=== PATIENT | male | born 1945 | race African-American/Black ===

== ENCOUNTER 2017-01-31 17:57 | Emergency (ER) | payer OTHER, MEDICAID ==
[2017-01-31 18:08] VITALS: BMI 20.9
[2017-01-31] MEDS ORDERED: NS 1000 ML 1,000 ML ONE (19:17)
--- NOTE | 2017-01-31 19:19 | DR.GENAD ---
HPI - PCP Primary Care Physician: FREDY LOPEZ - Complaint/Symptoms Chief Complaint Doctors Comments: Patient states his pacemaker has beent trying to go off today onset when he was walking two blocks this evening. States he has had a pacemaker for a year for weak heart and he has been taking his medicines. States he do not smoke but he drinks around eight plus Natuaral Lites daily. He has been having xiphoid chest pain with SOB. patient states he has been having decreased appetite with diarrhea. Chief Complaint:: PACEMAKER GOING OFF. HURTS AROUNF PACEMAKER. DIRRHEA AND NAUSEA Self Treatment fo Chief Complaint: TOOK PRESCRIBED MEDS - Nurses notes reviewed Nurses Notes Review: Yes - Source History Provided: Patient, Family Member - Mode of Arrival Mode of Arrival: Ambulatory - Timing Onset of Chief Complaint: 01/30/17 Came on: Gradually - Duration Duration: Constant How lon Duration: Days - Location Location: xiphoid chest pain - Severity Severity: Moderate - Modifying Factors Worsens:: nothing Improves:: nothing PMH - PMH Past Medical History: Yes Past Medical History: Angina, Hypertension Past Surgical History: Yes Surgical History: Other Past Surgical History Comment: PACEMAKER - Family History History of Family Medical Conditions: No - Social History Does any household member use tobacco: No Alcohol Use: Occasionally Do you use any recreational Drugs:: No Lives With: Family Lives Where: Home - infectious screening In the last 2 months have you had wt loss of >10#?: NO Have you had fever, night sweats or hemotysis?: No Have you traveled outside the country in the last 6 months?: No Isolation: Standard ROS - Review of Systems Constitutional: No Symptoms Reported, Weakness, Loss of Appetite. negative: See HPI, Chills, Diaphoresis, Fever, Malaise, Irritable, Fatigue, Other Eyes: No Symptoms Reported ENTM: No Symptoms Reported Respiratoy: No Symptoms Reported, Short of Breath. negative: See HPI, Productive Cough, Non-Productive Cough, Moist Cough, Dry Cough, Hacking Cough, Barking Cough, Brassy Cough, Orthopnea, Stridor, Wheezing, Hemoptysis, Other Cardiovascular: Chest Pain, Edema, Palpitations. negative: No Symptoms Reported , See HPI, Syncope, Cyanosis, Skin Mottling, Other Gastrointestinal/Abdominal: No Symptoms Reported. negative: See HPI, Abdominal Pain, Constipation, Diarrhea, Nausea, Vomiting, Food Intolerance, Other Genitourinary: No Symptoms Reported. negative: See HPI, Discharge, Dysuria, Frequency, Hematuria, Pain, Bleeding, Other Neurological: No Symptoms Reported Musculoskeletal: No Symptoms Reported Integumentary: No Symptoms Reported Hematologic/Lymphatic: No Symptoms Reported Endocrine: No Symptoms Reported Psychiatric: No Symptoms Reported PE - Vital Signs Vitals: Temperature 98.4 F Pulse Rate [Apical] 63 Pulse Rate 67 Respiratory Rate 18 Blood Pressure [Left Arm] 122/75 Blood Pressure 114/69 O2 Sat by Pulse Oximetry 100 - General Limitations: No Limitations General Appearance: Alert, In No Apparent Distress, In Distress (mild) - Head Head Exam: Normal Inspection, Atraumatic, Normocephalic - Eyes Eye exam: Normal Appearance, PERRL, EOMI. negative: Scleral Icterus, Conjunctival Injection, Nystagmus, Miosis, Mydrasis, Periorbital Swelling, Periorbital Tenderness, Other - ENT ENT Exam: Normal Exam, Normal Oropharynx, Normal External Ear Exam, Mucous Membranes Moist, TM's Normal Bilaterally External Ear Exam: Normal External Inspection TM/Canal Exam: Bilateral Normal Nose Exam: Normal Nose Exam Mouth Exam: Normal Inspection Throat Exam: Normal Inspection - Neck Neck Exam: Normal Inspection, Full ROM, Trachea Midline - Chest Chest Inspection: Normal Inspection, Symmetric Chest Wall Rise - Respiratory Respiratory Exam: Normal Lung Sounds Bilat Respiratory Exam: Bilateral Clear to Auscultation - Cardiovascular Cardiovascular Exam: Regular Rate, Normal Rhythm, Normal Heart Sounds - Abdominal Exam Abdominal Exam: Normal Inspection, Normal Bowel Sounds, Soft Abdominal Tenderness: negative: RUQ, RLQ, LUQ, LLQ, Epigastrium, Suprapubic, Diffuse, Mild, Moderate, Severe, Other - Extremities Extremities Exam: Normal Inspection, Full ROM, Normal Capillary Refill, Edema (2 -3 + dependent edema) - Back Back Exam: Normal Inspection, Full ROM. negative: Tenderness, (R) CVA Tenderness, (L) CVA Tenderness, Muscle Spasm, Paraspinal Tenderness, Vertebral Tenderness, Rashes, (R) Sciatic Notch Tenderness, (L) Sciatic Notch Tendern, (R ) Straight Leg Raise, (L) Straight Leg Raise, Other - Neurologic Neurological Exam: Alert, Oriented X3, CN II-XII Intact, Normal Gait, Reflexes Normal - Psychiatric Psychiatric Exam: Normal Affect, Normal Mood - Skin Skin Exam: Warm, Dry, Intact, Normal Color Course - Reevaluation 1st: Improved - Consultation Called: 02:13 Call Returned: 02:21 (Dr. Hodges called states to hang onto patient a little longer in ER) - Education/Counseling Education/Counseling: Patient, Family Educated On: Treatment, Diagnosis, Needs for Follow Up ROR - Labs Reviewed Laboratory Results Reviewed?: Yes (all labs and x-ray results reviewed and discussed with patient. ) Result Diagrams: 01/31/17 19:40 01/31/17 23:43 Laboratory: WBC 4.1 X10^3/uL (3.6-10.0) 01/31/17 19:40 RBC 3.55 X10^6/uL (4.7-6.0) L 01/31/17 19:40 Hgb 11.3 g/dL (13.5-18.0) L 01/31/17 19:40 Hct 33.8 % (42.0-54.0) L 01/31/17 19:40 MCV 95.0 fL (80.0-100.0) 01/31/17 19:40 MCH 31.8 pg (27.0-34.0) 01/31/17 19:40 MCHC 33.5 g/dL (33.0-35.0) 01/31/17 19:40 RDW 14.5 % (11.6-16.5) 01/31/17 19:40 Plt Count 203 X10^3/uL (150.0-450.0) 01/31/17 19:40 MPV 7.9 fL (7.4-11.0) 01/31/17 19:40 Neut % 32.7 % (42.0-75.0) L 01/31/17 19:40 Lymph % 56.3 % (21.0-51.0) H 01/31/17 19:40 [place] % 10.3 % (0.0-13.0) 01/31/17 19:40 Eos % 0.3 % (0.9-2.9) L 01/31/17 19:40 Baso % 0.4 % (0.2-1.0) 01/31/17 19:40 Neut # 1.3 x10^3/uL (2.2-4.8) L 01/31/17 19:40 Lymph # 2.3 X10^3/uL (1.3-2.9) 01/31/17 19:40 [place] # 0.4 x10^3/uL (0.3-0.8) 01/31/17 19:40 Eos # 0.0 x10^3/uL (0.0-0.2) 01/31/17 19:40 Baso # 0.0 X10^3/uL (0.0-0.1) 01/31/17 19:40 Absolute Nucleated RBC 0.1 /100WBC 01/31/17 19:40 INR Target Range - 01/31/17 20:18 INR 1.03 (0.8-1.3) 01/31/17 20:18 PTT 28.5 SECONDS (22.9-36.5) 01/31/17 20:18 PTT Comment - 01/31/17 20:18 D-Dimer 566 ng/mL (0-400) H* 01/31/17 20:18 Sodium 147 mmol/L (136-145) H 01/31/17 23:43 Corrected Sodium TNP 01/31/17 23:43 Potassium 4.2 mmol/L (3.5-5.1) 01/31/17 23:43 Chloride 107 mmol/L (98-107) 01/31/17 23:43 Carbon Dioxide 31.5 mmol/L (21-32) 01/31/17 23:43 BUN 4 mg/dL (7-18) L 01/31/17 23:43 Creatinine 0.60 mg/dL (0.70-1.30) L 01/31/17 23:43 Est GFR (MDRD) Af Amer > 60 (>60) 01/31/17 23:43 Est GFR (MDRD) Non-Af > 60 (>60) 01/31/17 23:43 Glucose 93 mg/dL (65-99) 01/31/17 23:43 Calcium 8.5 mg/dL (8.5-10.1) 01/31/17 23:43 Corrected Calcium TNP 01/31/17 20:18 Magnesium 1.3 mg/dL (1.7-2.9) L 01/31/17 20:18 Total Bilirubin 0.30 mg/dL (0.2-1.0) 01/31/17 20:18 AST 38 Units/L (15-37) H 01/31/17 20:18 ALT 20 Units/L (12-78) 01/31/17 20:18 Alkaline Phosphatase 89 Units/L (46-116) 01/31/17 20:18 Creatine Kinase 97 Units/L (39-308) 02/01/17 03:55 CK-MB (CK-2) < 1.0 ng/mL (0-4.0) 02/01/17 03:55 CK/CKMB % Calc 1.0 % (<4) 02/01/17 03:55 Troponin I 0.02 ng/mL (0-1.5) 02/01/17 03:55 Total Protein 7.8 g/dL (6.4-8.2) 01/31/17 20:18 Albumin 3.7 g/dL (3.4-5.0) 01/31/17 20:18 Globulin 4.1 g/dL (2.5-4.5) 01/31/17 20:18 Albumin/Globulin Ratio 0.9 Ratio (1.1-2.1) L 01/31/17 20:18 Amylase 101 Units/L (25-115) 01/31/17 20:18 Lipase 86 Units/L (73-393) 01/31/17 20:18 Ethyl Alcohol mg/dL 50 mg/dL (0-19.9) H 02/01/17 03:55 - XRAY XRAY Interpreted by: Radiologist (CTA: Central bronchiectasis and increased lung volumes consistent with COPD, mod cardiomegaly. No pulmonary embolism) - EKG Rate: 65 [place]: Normal Rhythm: Paced ST: Nonsp - Diagnosis Discharge Problem: Chest pain, COPD (chronic obstructive pulmonary disease), Hypokalemia, Alcohol abuse, Bronchitis - Discharge Plan Disposition: 01 HOME, SELF-CARE Condition: Stable Prescriptions: Ciprofloxacin HCl [CIPRO 500 MG TAB *] 500 mg PO Q12H #20 tab - Follow ups/Referrals Follow ups/Referrals: NFD,None [Primary Care Provider] - 3 days KAIDEN GUEVARA [STAFF PHYSICIAN] - 3 days - Instructions Instructions: Nonspecific Chest Pain, Chronic Obstructive Pulmonary Disease, Bronchiectasis, Hypokalemia, Alcohol Use Disorder
[2017-01-31] MEDS ORDERED: NS 1000 ML 1,000 ML IV SCH (20:00)
[2017-01-31 20:36] LABS: BASOPHILS % (AUTO) 0.4 % (0.2-1.0); EOSINOPHILS % (AUTO) 0.3 % (0.9-2.9); HEMATOCRIT 33.8 % (42.0-54.0); HEMOGLOBIN 11.3 g/dL (13.5-18.0); LYMPHOCYTES # (AUTO) 2.3 X10^3/uL (1.3-2.9); LYMPHOCYTES % (AUTO) 56.3 % (21.0-51.0); MEAN CORPUSCULAR HEMOGLOBIN 31.8 pg (27.0-34.0); MEAN CORPUSCULAR HGB CONC 33.5 g/dL (33.0-35.0); MEAN PLATELET VOLUME 7.9 fL (7.4-11.0); MONOCYTES # (AUTO) 0.4 x10^3/uL (0.3-0.8); MONOCYTES % (AUTO) 10.3 % (0.0-13.0); NEUTROPHILS # (AUTO) 1.3 x10^3/uL (2.2-4.8); NEUTROPHILS % (AUTO) 32.7 % (42.0-75.0); PLATELET COUNT 203 X10^3/uL (150.0-450.0); RED BLOOD COUNT 3.55 X10^6/uL (4.7-6.0); RED CELL DISTRIBUTION WIDTH 14.5 % (11.6-16.5); WHITE BLOOD COUNT 4.1 X10^3/uL (3.6-10.0)
--- NOTE | 2017-01-31 20:52 | RAD ---
EXAM: Chest X-ray INDICATION: Chest pain COMPARISION: No prior TECHNIQUE: Single view FINDINGS: The lungs are clear and the lung volumes are within normal limits. No pleural effusion or pneumothor ax. The cardiac silhouette and mediastinum are normal. The regional skeleton is intact. There is a left-sided pacemaker. IMPRESSION: No acute abnormality identified Reported By:
[2017-01-31 20:55] LABS: ALANINE AMINOTRANSFERASE 20 Units/L (12-78); ALBUMIN 3.7 g/dL (3.4-5.0); ALKALINE PHOSPHATASE 89 Units/L (46-116); AMYLASE 101 Units/L (25-115); ASPARTATE AMINO TRANSFERASE 38 Units/L (15-37); BLOOD ALCOHOL 181 mg/dL (0-19.9); BLOOD UREA NITROGEN 5 mg/dL (7-18); CALCIUM 8.6 mg/dL (8.5-10.1); CARBON DIOXIDE 29.4 mmol/L (21-32); CHLORIDE 105 mmol/L (98-107); CKMB % 0.9 % (<4); CREATINE KINASE 106 Units/L (39-308); CREATINE KINASE MB < 1.0 ng/mL (0-4.0); CREATININE 0.64 mg/dL (0.70-1.30); GLUCOSE 95 mg/dL (65-99); LIPASE 86 Units/L (73-393); MAGNESIUM 1.3 mg/dL (1.7-2.9); SODIUM 144 mmol/L (136-145); TOTAL PROTEIN 7.8 g/dL (6.4-8.2); TROPONIN I < 0.02 ng/mL (0-1.5); eGFR BLACK RACES > 60 (>60); eGFR NON BLACK RACES > 60 (>60)
[2017-01-31 21:06] LABS: D DIMER 566 ng/mL (0-400)
[2017-01-31] MEDS ORDERED: K-LYTE EFFERVESCENT ONE (21:18)
[2017-01-31] MEDS ORDERED: NS 100 ML IV 100 ML IV ONE (21:33)
[2017-01-31] MEDS ORDERED: K-LYTE EFFERVESCENT PO SCH (22:00)
--- NOTE | 2017-01-31 22:21 | CT ---
EXAM: CTA CHEST WITH CONTRAST INDICATION: Chest pain COMPARISION: No priors for comparison TECHNIQUE: Spiral CT of the chest was performed with contrast. Thin reconstructions in the axial and para-coron al planes were obtained as well as 3D reconstructions. The patient received intravenous contrast wi thout adverse reaction. FINDINGS: The heart size is enlarged. There is no evidence of a pulmonary embolism. The aorta is normal in flip iber. No evidence of dissection or aneurysm. No mediastinal or hilar mass or adenopathy. The lungs are clear. There is central bronchiectasis and increased lung volumes. No evidence of bull ous disease or pulmonary fibrosis. No lung mass, consolidation, or suspicious pulmonary nodule. No p leural effusion or pneumothorax identified. The regional skeleton is intact. IMPRESSION: There central bronchiectasis and increased lung volumes consistent COPD. There is moderate cardiomeg rosemarie. No pulmonary embolism. Reported By:
[2017-01-31] MEDS ORDERED: TORADOL 30 MG VIAL IVP STA (23:09)
[2017-01-31] MEDS ORDERED: LASIX IVP STA (23:10)
[2017-01-31] MEDS ORDERED: LASIX ONE (23:24)
[2017-01-31] MEDS ORDERED: TORADOL 30 MG VIAL ONE (23:24)
[2017-01-31] MEDS ORDERED: LEVAQUIN TAB 500 MG PO SCH (23:45)
[2017-01-31] MEDS ORDERED: K-DUR TAB 20 MEQ PO SCH (23:45)
[2017-01-31] MEDS ORDERED: LEVAQUIN TAB 500 MG ONE (23:48)
[2017-01-31] MEDS ORDERED: K-DUR TAB 20 MEQ PO ONE (23:48)
[2017-02-01 00:03] LABS: BLOOD UREA NITROGEN 4 mg/dL (7-18); CALCIUM 8.5 mg/dL (8.5-10.1); CARBON DIOXIDE 31.5 mmol/L (21-32); CHLORIDE 107 mmol/L (98-107); GLUCOSE 93 mg/dL (65-99); SODIUM 147 mmol/L (136-145); TROPONIN I 0.03 ng/mL (0-1.5); eGFR BLACK RACES > 60 (>60); eGFR NON BLACK RACES > 60 (>60)
[2017-02-01 00:08] LABS: CKMB % 0.9 % (<4); CREATINE KINASE 111 Units/L (39-308); CREATINE KINASE MB < 1.0 ng/mL (0-4.0)
[2017-02-01 03:24] VITALS: BP 122/75
[2017-02-01 04:21] LABS: CREATINE KINASE 97 Units/L (39-308); CREATINE KINASE MB < 1.0 ng/mL (0-4.0); TROPONIN I 0.02 ng/mL (0-1.5)
[2017-02-01] MEDS ORDERED: TYLENOL 325 MG TAB PO ONE ×2 (05:08→05:10)
== END 2017-02-01 05:14 | disposition home or self-care (01) ==
LOC: ER 18:21
DX: R07.89 Other chest pain (principal); J44.9 Chronic obstructive pulmonary disease, unspecified; E87.6 Hypokalemia; F10.10 Alcohol abuse, uncomplicated; J40 Bronchitis, not specified as acute or chronic; I51.7 Cardiomegaly
CPT/HCPCS: 36415; 71010; 71275; 80048; 80053; 80320; 82150; 82550; 82553; 83690; 83735; 84484; 85025; 85378; 85610; 85730; 93005; 93010; 96365; 96367; 96374; 96375; 99283; A4222; G6040; J1885; J1940

== ENCOUNTER 2017-02-23 22:59 | Inpatient (IN) | payer OTHER, MEDICAID ==
--- NOTE | 2017-02-23 23:37 | DR.GENAD ---
HPI - PCP Primary Care Physician: NFD - HPI Comment HPI Comment: PATIENT IS HAVING PRECORDIAL AND ABDOMINAL PAIN IN EPIGASTRIC AREA. PAIN MAKES PATIENT WEAK, SOB AND NAUSEATED. HE HAS INDWELLING PACE MAKER. HE IS ALSO HIV POSITIVE. HE SAID HE RECENTLY MOVE HERE FROM [place]. DO NOT HAVE PCP HERE YET. - Complaint/Symptoms Chief Complaint Doctors Comments: CHEST ABD ABDOMINAL PAIN. LOWER BACK HURTS, FELL YESTERDAY. Chief Complaint:: PT C/O UPPER ABD PAIN AND CHEST PAIN PT STATES" IT FEELS SORE RIGHT HERE WHEN I TOUCH IT " PT POINTS TOO ABD AND CHEST - Nurses notes reviewed Nurses Notes Review: Yes - Source History Provided: Patient - Mode of Arrival Mode of Arrival: Ambulatory - Timing Onset of Chief Complaint: 02/22/17 - Duration Duration: Constant Duration: Hours - Severity Severity: Moderate PMH - PMH Past Medical History: Yes Past Medical History: Angina, Hypertension Past Medical History Comment: PACEMAKER Past Surgical History: Yes Surgical History: Other Past Surgical History Comment: PACEMAKER - Family History History of Family Medical Conditions: No - Social History Do you use any recreational Drugs:: No - infectious screening In the last 2 months have you had wt loss of >10#?: NO Have you had fever, night sweats or hemotysis?: No Have you traveled outside the country in the last 6 months?: No Isolation: Standard ROS - Review of Systems Constitutional: Weakness, Fatigue. negative: Chills, Fever Eyes: No Symptoms Reported. negative: Eye Pain, Discharge ENTM: No Symptoms Reported. negative: Ear Pain, Nose Discharge, Nose Congestion , Throat Pain Respiratoy: Short of Breath. negative: Productive Cough, Non-Productive Cough, Wheezing Cardiovascular: Chest Pain. negative: Edema, Palpitations Gastrointestinal/Abdominal: Abdominal Pain, Nausea Genitourinary: No Symptoms Reported Neurological: No Symptoms Reported, Weakness. negative: Headache, Dizziness Musculoskeletal: Back Pain, Muscle Pain Integumentary: No Symptoms Reported Hematologic/Lymphatic: Easy Bleeding, Easy Bruising Endocrine: No Symptoms Reported All Other Systems: Reviewed and Negative PE - Vital Signs Vitals: Temperature 98.6 F Pulse Rate 75 Respiratory Rate 18 Blood Pressure [Left Arm] 122/75 Blood Pressure 155/82 O2 Sat by Pulse Oximetry 100 - General Limitations: No Limitations General Appearance: Alert - Head Head Exam: Normal Inspection - Eyes Eye exam: Normal Appearance - ENT ENT Exam: Normal External Ear Exam External Ear Exam: Normal External Inspection TM/Canal Exam: Bilateral Normal Nose Exam: Normal Nose Exam Mouth Exam: Normal Inspection Throat Exam: Normal Inspection - Neck Neck Exam: Trachea Midline - Chest Chest Inspection: Symmetric Chest Wall Rise - Respiratory Respiratory Exam: Chest Wall Tenderness Respiratory Exam: Bilateral Rhonchi, Lower Rhonchi - Cardiovascular Cardiovascular Exam: Regular Rate, Normal Rhythm, Normal Heart Sounds - Abdominal Exam Abdominal Exam: Normal Bowel Sounds, Soft, Tenderness Abdominal Tenderness: Diffuse, Moderate - Extremities Extremities Exam: Normal Inspection - Back Back Exam: Vertebral Tenderness (LOW BACK PAIN) - Neurologic Neurological Exam: Alert, Oriented X3, CN II-XII Intact. negative: Normal Gait , Motor Sensory Deficit, Reflexes Normal - Psychiatric Psychiatric Exam: Anxious - Skin Skin Exam: Normal Color MDM - Differential Diagnosis Differential Diagnosis: ABDOMINAL PAIN, CHEST PAIN, BACK PAIN, ND, PNEUMONIA, UTI Course - Treatment Treatment: SEE ORDERS - Consultation Consultation Comments: DISCUSS PATIENT WITH DR. LAZO. HE WILL ADMIT PATIENT. - Education/Counseling Education/Counseling: Patient, Education Educated On: Treatment, Diagnosis, Needs for Follow Up ROR - Labs Reviewed Laboratory Results Reviewed?: Yes Result Diagrams: 02/24/17 00:10 02/24/17 00:10 Laboratory: WBC 3.6 X10^3/uL (3.6-10.0) 02/24/17 00:10 RBC 3.22 X10^6/uL (4.7-6.0) L 02/24/17 00:10 Hgb 10.3 g/dL (13.5-18.0) L 02/24/17 00:10 Hct 30.7 % (42.0-54.0) L 02/24/17 00:10 MCV 95.4 fL (80.0-100.0) 02/24/17 00:10 MCH 32.0 pg (27.0-34.0) 02/24/17 00:10 MCHC 33.5 g/dL (33.0-35.0) 02/24/17 00:10 RDW 13.9 % (11.6-16.5) 02/24/17 00:10 Plt Count 166 X10^3/uL (150.0-450.0) 02/24/17 00:10 MPV 8.0 fL (7.4-11.0) 02/24/17 00:10 Neut % 40.0 % (42.0-75.0) L 02/24/17 00:10 Lymph % 48.5 % (21.0-51.0) 02/24/17 00:10 [place] % 10.4 % (0.0-13.0) 02/24/17 00:10 Eos % 0.4 % (0.9-2.9) L 02/24/17 00:10 Baso % 0.7 % (0.2-1.0) 02/24/17 00:10 Neut # 1.4 x10^3/uL (2.2-4.8) L 02/24/17 00:10 Lymph # 1.8 X10^3/uL (1.3-2.9) 02/24/17 00:10 [place] # 0.4 x10^3/uL (0.3-0.8) 02/24/17 00:10 Eos # 0.0 x10^3/uL (0.0-0.2) 02/24/17 00:10 Baso # 0.0 X10^3/uL (0.0-0.1) 02/24/17 00:10 Absolute Nucleated RBC 0.0 /100WBC 02/24/17 00:10 Sodium 145 mmol/L (136-145) 02/24/17 00:10 Corrected Sodium TNP 02/24/17 00:10 Potassium 3.4 mmol/L (3.5-5.1) L 02/24/17 00:10 Chloride 109 mmol/L (98-107) H 02/24/17 00:10 Carbon Dioxide 31.0 mmol/L (21-32) 02/24/17 00:10 BUN 6 mg/dL (7-18) L 02/24/17 00:10 Creatinine 0.88 mg/dL (0.70-1.30) 02/24/17 00:10 Est GFR (MDRD) Af Amer > 60 (>60) 02/24/17 00:10 Est GFR (MDRD) Non-Af > 60 (>60) 02/24/17 00:10 Glucose 97 mg/dL (65-99) 02/24/17 00:10 Calcium 8.5 mg/dL (8.5-10.1) 02/24/17 00:10 Corrected Calcium 9.1 mg/dL (8.5-10.1) 02/24/17 00:10 Total Bilirubin 0.20 mg/dL (0.2-1.0) 02/24/17 00:10 AST 25 Units/L (15-37) 02/24/17 00:10 ALT 14 Units/L (12-78) 02/24/17 00:10 Alkaline Phosphatase 82 Units/L (46-116) 02/24/17 00:10 Creatine Kinase 113 Units/L (39-308) 02/24/17 03:13 CK-MB (CK-2) 1.0 ng/mL (0-4.0) 02/24/17 03:13 CK/CKMB % Calc 0.9 % (<4) 02/24/17 03:13 Troponin I 0.05 ng/mL (0-1.5) 02/24/17 03:13 Total Protein 6.6 g/dL (6.4-8.2) 02/24/17 00:10 Albumin 3.2 g/dL (3.4-5.0) L 02/24/17 00:10 Globulin 3.4 g/dL (2.5-4.5) 02/24/17 00:10 Albumin/Globulin Ratio 0.9 Ratio (1.1-2.1) L 02/24/17 00:10 - XRAY XRAY Interpreted by: Radiologist XRAY Findings: REPORT DISCUSS WITH PATIENT. - EKG Rhythm: NSR (EKG NOTED) - Diagnosis Discharge Problem: Chest pain Qualifiers: Chest pain type: precordial pain Qualified Code(s): R07.2 - Precordial pain Abdominal pain Qualifiers: Abdominal location: epigastric Qualified Code(s): R10.13 - Epigastric pain Back pain Qualifiers: Back pain location: low back pain Chronicity: acute Back pain laterality: bilateral Sciatica presence: without sciatica Qualified Code(s): M54.5 - Low back pain - Follow ups/Referrals Follow ups/Referrals: NFD,None [Primary Care Provider] - 3 days - Instructions
[2017-02-24] MEDS ORDERED: TORADOL 60 MG VIAL IM ONE (00:11)
[2017-02-24] MEDS ORDERED: TORADOL 60 MG VIAL ONE (00:17)
[2017-02-24 00:27] LABS: BASOPHILS % (AUTO) 0.7 % (0.2-1.0); EOSINOPHILS % (AUTO) 0.4 % (0.9-2.9); HEMATOCRIT 30.7 % (42.0-54.0); HEMOGLOBIN 10.3 g/dL (13.5-18.0); LYMPHOCYTES # (AUTO) 1.8 X10^3/uL (1.3-2.9); LYMPHOCYTES % (AUTO) 48.5 % (21.0-51.0); MEAN CORPUSCULAR HGB CONC 33.5 g/dL (33.0-35.0); MEAN CORPUSCULAR VOLUME 95.4 fL (80.0-100.0); MONOCYTES # (AUTO) 0.4 x10^3/uL (0.3-0.8); MONOCYTES % (AUTO) 10.4 % (0.0-13.0); NEUTROPHILS # (AUTO) 1.4 x10^3/uL (2.2-4.8); PLATELET COUNT 166 X10^3/uL (150.0-450.0); RED BLOOD COUNT 3.22 X10^6/uL (4.7-6.0); RED CELL DISTRIBUTION WIDTH 13.9 % (11.6-16.5); WHITE BLOOD COUNT 3.6 X10^3/uL (3.6-10.0)
[2017-02-24 00:44] LABS: BLOOD UREA NITROGEN 6 mg/dL (7-18); CALCIUM 8.5 mg/dL (8.5-10.1); CHLORIDE 109 mmol/L (98-107); CREATININE 0.88 mg/dL (0.70-1.30); GLUCOSE 97 mg/dL (65-99); SODIUM 145 mmol/L (136-145); TROPONIN I 0.05 ng/mL (0-1.5); eGFR BLACK RACES > 60 (>60); eGFR NON BLACK RACES > 60 (>60)
--- NOTE | 2017-02-24 00:49 | RAD ---
Acute abdominal series Indication:chest and upper abdominal pain Comparison: 01/31/2017 Findings: The trachea is midline. The cardiac silhouette is unremarkable. Stable positioning of left chest wal l AICD. The lungs are clear without focal infiltrate or effusion. The bony thorax is unremarkable. Flat and upright evaluation of the abdomen demonstrates a normal bowel gas pattern. No pathological soft tissue mass or calcification can be observed. The bony structures are grossly intact. Previous cholecystectomy is noted. IMPRESSION: 1. No acute cardiopulmonary disease. 2. No evidence for acute abdominal pathology identified. Reported By:
[2017-02-24 00:52] LABS: ALANINE AMINOTRANSFERASE 14 Units/L (12-78); ALBUMIN 3.2 g/dL (3.4-5.0); ALKALINE PHOSPHATASE 82 Units/L (46-116); ASPARTATE AMINO TRANSFERASE 25 Units/L (15-37); COR CA(FOR HYPOALB) 9.1 mg/dL (8.5-10.1); CREATINE KINASE 99 Units/L (39-308); CREATINE KINASE MB < 1.0 ng/mL (0-4.0); TOTAL PROTEIN 6.6 g/dL (6.4-8.2)
--- NOTE | 2017-02-24 01:34 | RAD ---
The three views of the lumbar spine Indication: Lower back pain post trauma. Findings: There is moderate spondylosis at L5-S1. There is mild multilevel facet arthropathy within t he lower lumbar spine. No acute fracture spondylolisthesis within the lumbar spine. No spondylolysis. SI joints are intact. Previous cholecystectomy is noted. 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 Calcified vascular atherosclerotic disease is noted within the iliac arteries bilater ally.. Impression: No acute fracture or malalignment of the lumbar spine. Moderate spondylosis at L5-S1. Reported By:
[2017-02-24] MEDS ORDERED: POTASSIUM CHLORIDE LIQ 20 MEQ UDC PO ONE (01:40)
[2017-02-24 03:39] LABS: CKMB % 0.9 % (<4); TROPONIN I 0.05 ng/mL (0-1.5)
[2017-02-24] MEDS ORDERED: POTASSIUM CHLORIDE LIQ 20 MEQ UDC ONE (03:55)
[2017-02-24] MEDS ORDERED: NITROSTAT SL PRN (04:28)
[2017-02-24] MEDS ORDERED: ZOFRAN INJ 4 MG VIAL IVP PRN (04:37)
[2017-02-24] MEDS: ZESTRIL TAB 10 MG PO SCH ×2 (05:11→10:20)
[2017-02-24 05:36] LABS: BASOPHILS % (AUTO) 0.6 % (0.2-1.0); EOSINOPHILS % (AUTO) 0.4 % (0.9-2.9); HEMATOCRIT 31.1 % (42.0-54.0); HEMOGLOBIN 10.3 g/dL (13.5-18.0); LYMPHOCYTES # (AUTO) 2.3 X10^3/uL (1.3-2.9); LYMPHOCYTES % (AUTO) 55.3 % (21.0-51.0); MEAN CORPUSCULAR HEMOGLOBIN 31.4 pg (27.0-34.0); MEAN CORPUSCULAR HGB CONC 33.3 g/dL (33.0-35.0); MEAN CORPUSCULAR VOLUME 94.3 fL (80.0-100.0); MEAN PLATELET VOLUME 7.8 fL (7.4-11.0); MONOCYTES # (AUTO) 0.5 x10^3/uL (0.3-0.8); MONOCYTES % (AUTO) 12.8 % (0.0-13.0); NEUTROPHILS # (AUTO) 1.3 x10^3/uL (2.2-4.8); NEUTROPHILS % (AUTO) 30.9 % (42.0-75.0); PLATELET COUNT 158 X10^3/uL (150.0-450.0); RED BLOOD COUNT 3.29 X10^6/uL (4.7-6.0); RED CELL DISTRIBUTION WIDTH 14.1 % (11.6-16.5); WHITE BLOOD COUNT 4.1 X10^3/uL (3.6-10.0)
[2017-02-24 05:56] LABS: ALANINE AMINOTRANSFERASE 14 Units/L (12-78); ALBUMIN 3.1 g/dL (3.4-5.0); ALKALINE PHOSPHATASE 74 Units/L (46-116); ASPARTATE AMINO TRANSFERASE 25 Units/L (15-37); BLOOD UREA NITROGEN 4 mg/dL (7-18); CALCIUM 8.3 mg/dL (8.5-10.1); CARBON DIOXIDE 29.8 mmol/L (21-32); CHLORIDE 108 mmol/L (98-107); CHOL/HDL RATIO 1.9 (0.0-5.0); CHOLESTEROL 115 mg/dL (0-200); CREATININE 0.74 mg/dL (0.70-1.30); GLUCOSE 95 mg/dL (65-99); HDL CHOLESTEROL 59 mg/dL (40-60); SODIUM 144 mmol/L (136-145); TOTAL PROTEIN 6.4 g/dL (6.4-8.2); TRIGLYCERIDES 28 mg/dL (0-150); eGFR BLACK RACES > 60 (>60); eGFR NON BLACK RACES > 60 (>60)
[2017-02-24] MEDS ORDERED: K-RIDER 10 MEQ/NS 100 ML 10 MEQ/100 ML BAG IV PRN (06:20)
[2017-02-24] MEDS ORDERED: POTASSIUM CHLORIDE LIQ 20 MEQ UDC PO PRN (06:20)
[2017-02-24] MEDS ORDERED: K-LYTE EFFERVESCENT PO PRN (06:20)
[2017-02-24] MEDS: TYLENOL 325 MG TAB PO PRN (06:44)
[2017-02-24] MEDS: K-DUR TAB 20 MEQ PO PRN ×2 (06:44→10:20)
--- NOTE | 2017-02-24 10:02 | DR.H&P ---
H&P - History & Physical for Day of: H&P Date: 02/24/17 - Chief Complaint Chief Complaint: CHEST PAIN, ABDOMINAL PAIN, LOWER BACK PAIN - Allergies Allergies/Adverse Reactions: Allergies Allergy/AdvReac Type Severity Reaction Status Date / Time No Known Drug Allergies Allergy Verified 01/31/17 18:10 - History of Present Illness History of Present Illness: IS A 71 YEAR OLD MALE WHO REPORTED TO THE ER WITH COMPLAINTS OF CHEST PAIN, ABDOMINAL PAIN IN THE EPIGASTRIC AREA, AND LOWER BACK PAIN FOLLOWING A FALL YESTERDAY. PATIENT REPORTS A HISTORY OF HTN AND AN INDWELLING PACEMAKER. ASSOCIATED SYMPTOMS ARE WEAKNESS, SHORTNESS OF BREATH, AND NAUSEA. HE IS NOTED WITH BILATERAL LOWER LOBE RHONCHI ON AUSCULTATION. BOWEL SOUNDS ARE NORMAL IN ALL QUADRANTS. ON ARRIVAL TO ER, VITALS WERE 98.6-75-18-100%-155/82. CBC WNL EXCEPT RBC 3.22, HGB 10.3, HCT 30.7 , NEUT % 40, EOS % 0.4, NEUT # 1.4. CMP WNL EXCEPT POTASSIUM 3.4, CHLORIDE 109, BUN 6, ALBUMIN 3.2, A/G RATIO 0.9. CARDIAC ENZYMES WNL. EKG REPORTS PACED RHYTHM. ABDOMINAL XRAY NEGATIV.E LUMBAR XRAY REPORTS MODERATE SPONDYLOSIS AT L5- S1 WITH NO ACUTE FX OR MALALIGNMENT NOTED. HE WAS GIVEN TORADOL 60MG IM X 1 DOSE FOR PAIN. HE REPORTED DECREASE IN BACK PAIN AFTER TORADOL. HE WAS ALSO GIVEN POTASSIUM ELIXIR. WE ADMITTED PATIENT FOR FURTHER TREATMENT AND EVALUATION. HE WAS STARTED ON PEPCID 20MG IV Q12H, LISINOPRIL 10MG DAILY, MORPHINE 4MG IVP Q6H PRN PAIN, NITRO PRN PAIN, ZOFRAN 4MG IVP Q6H PRN NAUSEA, AND POTASSIUM PROTOCOL. WE PLAN TO RECHECK LABS AND SERIAL CARDIAC ENZYMES AND EKG AND FOLLOW UP WITH PATIENT IN AM. - Past Medical History Past Medical History: Angina, Coronary Artery Disease, CVA, Dyslipidemia, GERD, Hypertension Additional Medical History: HIV - Past Surgical History Surgical History: Cholecystectomy, Other Additional Surgical History: PACEMAKER - Family History Family Medical History: Hypertension - Social History Alcohol Use: Occasionally Drug Use: None - Review of Systems Constitutional: No Symptoms Reported, Weakness Eyes: No Symptoms Reported ENT: No Symptoms Reported Respiratory: See HPI, Shortness of Breath Cardiovascular: Chest Pain, See HPI Gastrointestinal: See HPI, Nausea, Abdominal Pain Genitourinary: No Symptoms Reported. denies: See HPI, Dysuria, Frequency, Incontinence, Hematuria, Retention, Other Musculoskeletal: See HPI, Back Pain. denies: No Symptoms Reported, Shoulder Pain, Arm Pain, Hand Pain, Leg Pain, Foot Pain, Neck Pain, Other Skin: No Symptoms Reported. denies: See HPI, Rash, Lesions, Jaundice, Bruising , Wound, Ecchymosis, Other Neurological: Weakness. denies: No Symptoms Reported, See HPI, Numbness, Incoordination, Change in Speech, Confusion, Seizures, Other - Physical Exam Vital Signs: Temperature 98.6 F Pulse Rate 75 Respiratory Rate 18 Blood Pressure [Left Arm] 122/75 Blood Pressure 155/82 O2 Sat by Pulse Oximetry 100 Oriented: Normal Eyes: Normal Ear: Normal Nose: Normal Throat: Normal Respiratory: LLL Absent, RLL Rhonchi Cardiovascular: Normal : Normal Auscultation: Bowel Sounds: Normal Palpation: Normal Tenderness: Epigastric, Moderate. negative: Rebound, Guarding, Rigidity Skin: Normal Musculoskeletal: Back:Lumbar (LOWER BACK PAIN FOLLOWING FALL ) Psychiatric: Normal Mood Description: Calm Affect: Normal Speech Pattern: Clear - Assessment/Plan (1) Chest pain Qualifiers: Chest pain type: precordial pain Qualified Code(s): R07.2 - Precordial pain Status: Acute Plan: SERIAL CARDIAC ENZYMES AND EKG, MORPHINE 4MG IV Q6H PRN PAIN, NITRO 0.4MG SL Q5M PRN PAIN, CONTINUE TO MONITOR (2) Abdominal pain Qualifiers: Abdominal location: epigastric Qualified Code(s): R10.13 - Epigastric pain Status: Acute Plan: PEPCID 20MG IV Q12H, CONTINUE TO MONITOR (3) Back pain Qualifiers: Back pain location: low back pain Chronicity: acute Back pain laterality : bilateral Sciatica presence: without sciatica Qualified Code(s): M54.5 - Low back pain Status: Acute Plan: MORPHINE 4MG IV Q6H PRN PAIN, CONTINUE TO MONITOR (4) Hypokalemia Status: Acute Plan: POTASSIUM SUPPLEMENTS, CONTINUE TO MONITOR
[2017-02-24 10:16] LABS: CKMB % 0.9 % (<4); CREATINE KINASE 108 Units/L (39-308); CREATINE KINASE MB < 1.0 ng/mL (0-4.0); TROPONIN I 0.05 ng/mL (0-1.5)
[2017-02-24] MEDS: PEPCID 20 MG IV PREMIX* 20 MG/50 ML BAG IV SCH ×2 (10:20→21:34)
[2017-02-24] MEDS: ASPIRIN PO SCH (10:20)
[2017-02-24] MEDS ORDERED: NS 250 ML IV 250 ML IV ONE (10:26)
[2017-02-24 16:19] LABS: CKMB % 0.9 % (<4); TROPONIN I 0.05 ng/mL (0-1.5)
[2017-02-24] MEDS: FOLIC ACID TAB 1 MG PO SCH (17:27)
[2017-02-24] MEDS: MORPHINE SULFATE INJ 4 MG IVP PRN (19:38)
[2017-02-24] MEDS: LIPITOR TAB 10 MG PO SCH (21:34)
[2017-02-25 00:11] LABS: BILIRUBIN,URINE NEGATIVE (NEGATIVE); BLOOD/HEMOGLOBIN,URINE NEGATIVE (NEGATIVE); GLUCOSE, URINE NEGATIVE (NEGATIVE); KETONES,URINE NEGATIVE (NEGATIVE); LEUKOCYTE ESTERASE ,URINE NEGATIVE (NEGATIVE); NITRITES,URINE NEGATIVE (NEGATIVE); PROTEIN,URINE NEGATIVE (NEGATIVE); UROBILINOGEN,URINE NORMAL (NORMAL)
[2017-02-25 00:18] LABS: APPEARANCE,URINE CLEAR (CLEAR); BACTERIA,URINE NEGATIVE /HPF (NEGATIVE); COLOR,URINE YELLOW (YELLOW); RBC,URINE NONE SEEN /HPF (NEGATIVE); SQUAMOUS EPITHELIAL CELL,UR RARE /HPF (NEGATIVE)
[2017-02-25 06:07] LABS: BASOPHILS % (AUTO) 0.9 % (0.2-1.0); EOSINOPHILS % (AUTO) 0.9 % (0.9-2.9); HEMATOCRIT 29.3 % (42.0-54.0); HEMOGLOBIN 9.9 g/dL (13.5-18.0); LYMPHOCYTES # (AUTO) 1.6 X10^3/uL (1.3-2.9); LYMPHOCYTES % (AUTO) 47.5 % (21.0-51.0); MEAN CORPUSCULAR HEMOGLOBIN 31.7 pg (27.0-34.0); MEAN CORPUSCULAR HGB CONC 33.7 g/dL (33.0-35.0); MEAN CORPUSCULAR VOLUME 94.1 fL (80.0-100.0); MEAN PLATELET VOLUME 7.7 fL (7.4-11.0); MONOCYTES # (AUTO) 0.4 x10^3/uL (0.3-0.8); NEUTROPHILS # (AUTO) 1.3 x10^3/uL (2.2-4.8); NEUTROPHILS % (AUTO) 39.7 % (42.0-75.0); PLATELET COUNT 152 X10^3/uL (150.0-450.0); RED BLOOD COUNT 3.12 X10^6/uL (4.7-6.0); RED CELL DISTRIBUTION WIDTH 13.9 % (11.6-16.5); WHITE BLOOD COUNT 3.3 X10^3/uL (3.6-10.0)
[2017-02-25 06:19] LABS: ALANINE AMINOTRANSFERASE 13 Units/L (12-78); ALBUMIN 2.7 g/dL (3.4-5.0); ALKALINE PHOSPHATASE 97 Units/L (46-116); ASPARTATE AMINO TRANSFERASE 22 Units/L (15-37); BLOOD UREA NITROGEN 4 mg/dL (7-18); CALCIUM 8.1 mg/dL (8.5-10.1); CHLORIDE 108 mmol/L (98-107); COR CA(FOR HYPOALB) 9.1 mg/dL (8.5-10.1); CREATININE 0.67 mg/dL (0.70-1.30); GLUCOSE 96 mg/dL (65-99); SODIUM 144 mmol/L (136-145); TOTAL PROTEIN 5.9 g/dL (6.4-8.2); eGFR BLACK RACES > 60 (>60); eGFR NON BLACK RACES > 60 (>60)
[2017-02-25] MEDS: K-DUR TAB 20 MEQ PO PRN (06:28)
[2017-02-25] MEDS ORDERED: MAGNESIUM SULFATE 1 GM/100 mL PREMIX 1 GM/100 ML BAG IV SCH (07:00)
[2017-02-25] MEDS: ZESTRIL TAB 10 MG PO SCH (08:03)
[2017-02-25] MEDS: ASPIRIN PO SCH (08:03)
[2017-02-25] MEDS: FOLIC ACID TAB 1 MG PO SCH (08:03)
[2017-02-25] MEDS: PEPCID 20 MG IV PREMIX* 20 MG/50 ML BAG IV SCH ×2 (08:04→20:49)
--- NOTE | 2017-02-25 08:36 | RAD ---
HISTORY: Chest pain/shortness of breath. Study: Portable chest. Comparison: Chest x-ray dated January 31, 2017. Findings: The trachea is midline. The cardiac silhouette is prominent but unchanged. Stable appearing multilea d left chest cardiac pacemaker. The lungs are clear without focal infiltrate or effusion. The bony thorax is unremarkable. IMPRESSION: No acute cardiopulmonary disease. Reported By:
--- NOTE | 2017-02-25 10:22 | PCM.PROG ---
Progress Note - Progress Note for Day of Date: 02/25/17 - Subjective Subjective: WAS ADMITTED FOR CHEST PAIN. HE IS ALERT AND ORIENTED ON MORNING ROUNDS. HE IS SITTING UP IN BED EATING BREAKFAST. HE DENIES CHEST PAIN OR SHORTNESS OF BREATH ON ROUNDS. HE IS WITHOUT COMPLAINTS. LUNGS ARE CLEAR TO AUSCULTATION. VITALS THIS AM ARE 99.5-7-20-95%-122/57. CBC WNL EXCEPT WBC 3.3, RBC 3.12, HGB 9.9, HCT 29.3. CMP WNL EXCEPT CHLORIDE 108, BUN 4, CREATININE 0.67 , CALCIUM 8.1, MAGNESIUM 0.9, TOTAL PROTEIN 5.9, ALBUMIN 2.7, A/G RATION 0.8. CARDIAC ENZYMES AND EKG WNL. WE WILL OBTAIN AN ECHO TODAY. WE WILL SUPPLEMENT MAGNESIUM AND POTASSIUM AND RECHECK THESE LEVELS. WE WILL RECHECK AM LABS AND FOLLOW UP WITH PATIENT IN THE MORNING. - Past Medical Family Social History Past Med/Fam/Surg Hx: No changes since H&P Allergies: Allergies No Known Drug Allergies Allergy (Verified 01/31/17 18:10) - Review of Systems ROS: No change since H&P - Vital Signs and I&O's Vital Signs: Temperature 97.8 F Pulse Rate [Left Brachial] 68 Pulse Rate 75 Respiratory Rate 20 Blood Pressure [Left Arm] 138/80 Blood Pressure 155/82 O2 Sat by Pulse Oximetry 100 Intake and Output: Intake & Output 02/22/17 02/23/17 02/24/17 02/25/17 11:59 11:59 11:59 11:59 Intake Total 240 1720 Output Total 200 1800 Balance 40 -80 - Physical Exam Oriented: Normal Eyes: Normal Ear: Normal Nose: Normal Throat: Normal Respiratory: Normal Cardiovascular: Normal : Normal Auscultation: Bowel Sounds: Normal Palpation: Normal Tenderness: Epigastric, Moderate. negative: Rebound, Guarding, Rigidity Skin: Normal Musculoskeletal: Back:Lumbar (LOWER BACK PAIN FOLLOWING FALL ) Psychiatric: Normal Mood Description: Calm Affect: Normal Speech Pattern: Clear, Appropriate - Laboratory and Diagnostics Result Diagrams: 02/25/17 05:55 02/25/17 08:49 Labs: Laboratory WBC 3.3 X10^3/uL (3.6-10.0) L 02/25/17 05:55 RBC 3.12 X10^6/uL (4.7-6.0) L 02/25/17 05:55 Hgb 9.9 g/dL (13.5-18.0) L 02/25/17 05:55 Hct 29.3 % (42.0-54.0) L 02/25/17 05:55 MCV 94.1 fL (80.0-100.0) 02/25/17 05:55 MCH 31.7 pg (27.0-34.0) 02/25/17 05:55 MCHC 33.7 g/dL (33.0-35.0) 02/25/17 05:55 RDW 13.9 % (11.6-16.5) 02/25/17 05:55 Plt Count 152 X10^3/uL (150.0-450.0) 02/25/17 05:55 MPV 7.7 fL (7.4-11.0) 02/25/17 05:55 Neut % 39.7 % (42.0-75.0) L 02/25/17 05:55 Lymph % 47.5 % (21.0-51.0) 02/25/17 05:55 [place] % 11.0 % (0.0-13.0) 02/25/17 05:55 Eos % 0.9 % (0.9-2.9) 02/25/17 05:55 Baso % 0.9 % (0.2-1.0) 02/25/17 05:55 Neut # 1.3 x10^3/uL (2.2-4.8) L 02/25/17 05:55 Lymph # 1.6 X10^3/uL (1.3-2.9) 02/25/17 05:55 [place] # 0.4 x10^3/uL (0.3-0.8) 02/25/17 05:55 Eos # 0.0 x10^3/uL (0.0-0.2) 02/25/17 05:55 Baso # 0.0 X10^3/uL (0.0-0.1) 02/25/17 05:55 Absolute Nucleated RBC 0.1 /100WBC 02/25/17 05:55 Sodium 144 mmol/L (136-145) 02/25/17 05:55 Corrected Sodium TNP 02/25/17 05:55 Potassium 3.7 mmol/L (3.5-5.1) 02/25/17 08:49 Chloride 108 mmol/L (98-107) H 02/25/17 05:55 Carbon Dioxide 29.0 mmol/L (21-32) 02/25/17 05:55 BUN 4 mg/dL (7-18) L 02/25/17 05:55 Creatinine 0.67 mg/dL (0.70-1.30) L 02/25/17 05:55 Est GFR (MDRD) Af Amer > 60 (>60) 02/25/17 05:55 Est GFR (MDRD) Non-Af > 60 (>60) 02/25/17 05:55 Glucose 96 mg/dL (65-99) 02/25/17 05:55 Calcium 8.1 mg/dL (8.5-10.1) L 02/25/17 05:55 Corrected Calcium 9.1 mg/dL (8.5-10.1) 02/25/17 05:55 Magnesium 0.9 mg/dL (1.7-2.9) L 02/25/17 05:55 Total Bilirubin 0.20 mg/dL (0.2-1.0) 02/25/17 05:55 AST 22 Units/L (15-37) 02/25/17 05:55 ALT 13 Units/L (12-78) 02/25/17 05:55 Alkaline Phosphatase 97 Units/L (46-116) 02/25/17 05:55 Creatine Kinase 108 Units/L (39-308) 02/24/17 15:44 CK-MB (CK-2) 1.0 ng/mL (0-4.0) 02/24/17 15:44 CK/CKMB % Calc 0.9 % (<4) 02/24/17 15:44 Troponin I 0.05 ng/mL (0-1.5) 02/24/17 15:44 Total Protein 5.9 g/dL (6.4-8.2) L 02/25/17 05:55 Albumin 2.7 g/dL (3.4-5.0) L 02/25/17 05:55 Globulin 3.2 g/dL (2.5-4.5) 02/25/17 05:55 Albumin/Globulin Ratio 0.8 Ratio (1.1-2.1) L 02/25/17 05:55 Triglycerides 28 mg/dL (0-150) 02/24/17 05:29 Cholesterol 115 mg/dL (0-200) 02/24/17 05:29 LDL Cholesterol, Calc 50 mg/dL (0-100) 02/24/17 05:29 HDL Cholesterol 59 mg/dL (40-60) 02/24/17 05:29 Cholesterol/HDL Ratio 1.9 (0.0-5.0) 02/24/17 05:29 Specimen Type Clean catch urine 02/25/17 00:00 Urine Color Yellow (YELLOW) 02/25/17 00:00 Urine Appearance Clear (CLEAR) 02/25/17 00:00 Urine pH 7.0 (5.0 - 8.0) 02/25/17 00:00 Ur Specific [place] 1.010 (1.000-1.030) 02/25/17 00:00 Urine Protein Negative (NEGATIVE) 02/25/17 00:00 Urine Glucose (UA) Negative (NEGATIVE) 02/25/17 00:00 Urine Ketones Negative (NEGATIVE) 02/25/17 00:00 Urine Occult Blood Negative (NEGATIVE) 02/25/17 00:00 Urine Nitrite Negative (NEGATIVE) 02/25/17 00:00 Urine Bilirubin Negative (NEGATIVE) 02/25/17 00:00 Urine Urobilinogen Normal (NORMAL) 02/25/17 00:00 Ur Leukocyte Esterase Negative (NEGATIVE) 02/25/17 00:00 Urine RBC None seen /HPF (NEGATIVE) 02/25/17 00:00 Urine WBC 0-2 /HPF (NEGATIVE) 02/25/17 00:00 Ur Squamous Epith Cells Rare /HPF (NEGATIVE) 02/25/17 00:00 Urine Bacteria Negative /HPF (NEGATIVE) 02/25/17 00:00 Ur Culture Indicated? No/not indicated 02/25/17 00:00 H. pylori IgG Antibody Negative (NEGATIVE) 02/24/17 05:29 - Plan (1) Chest pain Status: Acute Qualifiers: Chest pain type: precordial pain Qualified Code(s): R07.2 - Precordial pain Plan: TELEMETRY, MORPHINE 4MG IV Q6H PRN PAIN, NITRO 0.4MG SL Q5M PRN PAIN, CONTINUE TO MONITOR (2) Abdominal pain Status: Acute Qualifiers: Abdominal location: epigastric Qualified Code(s): R10.13 - Epigastric pain Plan: PEPCID 20MG IV Q12H, CONTINUE TO MONITOR (3) Back pain Status: Acute Qualifiers: Back pain location: low back pain Chronicity: acute Back pain laterality : bilateral Sciatica presence: without sciatica Qualified Code(s): M54.5 - Low back pain Plan: MORPHINE 4MG IV Q6H PRN PAIN, CONTINUE TO MONITOR (4) Hypokalemia Status: Acute Plan: POTASSIUM SUPPLEMENTS, CONTINUE TO MONITOR (5) Hypomagnesemia Status: Acute Plan: MAGNESIUM SULFATE 2GM IV, RECHECK LEVELS, CONTINUE TO MONITOR (6) Hyperlipidemia Status: Chronic Qualifiers: Hyperlipidemia type: mixed hyperlipidemia Qualified Code(s): E78.2 - Mixed hyperlipidemia Plan: CONTINUE LIPITOR, CONTINUE TO MONITOR (7) Hypertension Status: Chronic Qualifiers: Hypertension type: essential hypertension Qualified Code(s): I10 - Essential (primary) hypertension Plan: CONTINUE LISINOPRIL, CONTINUE TO MONITOR
[2017-02-25] MEDS ORDERED: MAGNESIUM SULFATE 1 GM/100 mL PREMIX 1 GM/100 ML BAG IV NR (11:00)
[2017-02-25] MEDS: MORPHINE SULFATE INJ 4 MG IVP PRN (15:12)
[2017-02-25] MEDS: LIPITOR TAB 10 MG PO SCH (20:49)
[2017-02-25] MEDS: TYLENOL 325 MG TAB PO PRN (20:50)
[2017-02-25 21:17] VITALS: BMI 19.2
[2017-02-26 05:01] LABS: ALANINE AMINOTRANSFERASE 14 Units/L (12-78); ALBUMIN 2.9 g/dL (3.4-5.0); ALKALINE PHOSPHATASE 100 Units/L (46-116); ASPARTATE AMINO TRANSFERASE 23 Units/L (15-37); BLOOD UREA NITROGEN 5 mg/dL (7-18); CALCIUM 8.3 mg/dL (8.5-10.1); CARBON DIOXIDE 28.7 mmol/L (21-32); CHLORIDE 106 mmol/L (98-107); COR CA(FOR HYPOALB) 9.2 mg/dL (8.5-10.1); CREATININE 0.73 mg/dL (0.70-1.30); GLUCOSE 90 mg/dL (65-99); MAGNESIUM 1.4 mg/dL (1.7-2.9); SODIUM 140 mmol/L (136-145); TOTAL PROTEIN 6.2 g/dL (6.4-8.2); eGFR BLACK RACES > 60 (>60); eGFR NON BLACK RACES > 60 (>60)
[2017-02-26 05:03] LABS: BASOPHILS % (AUTO) 1.2 % (0.2-1.0); EOSINOPHILS % (AUTO) 0.6 % (0.9-2.9); HEMOGLOBIN 10.8 g/dL (13.5-18.0); LYMPHOCYTES # (AUTO) 1.5 X10^3/uL (1.3-2.9); LYMPHOCYTES % (AUTO) 37.1 % (21.0-51.0); MEAN CORPUSCULAR HGB CONC 33.7 g/dL (33.0-35.0); MEAN CORPUSCULAR VOLUME 94.8 fL (80.0-100.0); MEAN PLATELET VOLUME 8.8 fL (7.4-11.0); MONOCYTES # (AUTO) 0.3 x10^3/uL (0.3-0.8); MONOCYTES % (AUTO) 8.6 % (0.0-13.0); NEUTROPHILS # (AUTO) 2.1 x10^3/uL (2.2-4.8); NEUTROPHILS % (AUTO) 52.5 % (42.0-75.0); PLATELET COUNT 167 X10^3/uL (150.0-450.0); RED BLOOD COUNT 3.38 X10^6/uL (4.7-6.0); RED CELL DISTRIBUTION WIDTH 13.9 % (11.6-16.5)
[2017-02-26] MEDS ORDERED: MAGNESIUM SULFATE 1 GM/100 mL PREMIX 1 GM/100 ML BAG IV ONE (05:16)
[2017-02-26] MEDS ORDERED: NS 250 ML IV 250 ML IV ONE (08:11)
[2017-02-26] MEDS: PEPCID 20 MG IV PREMIX* 20 MG/50 ML BAG IV SCH ×2 (08:36→20:36)
[2017-02-26] MEDS: FOLIC ACID TAB 1 MG PO SCH (08:36)
[2017-02-26] MEDS: ASPIRIN PO SCH (08:36)
[2017-02-26] MEDS: ZESTRIL TAB 10 MG PO SCH (08:36)
[2017-02-26] MEDS: ALDACTONE TAB 25 MG PO SCH (10:54)
--- NOTE | 2017-02-26 11:06 | PCM.PROG ---
Progress Note - Progress Note for Day of Date: 02/26/17 - Subjective Subjective: WAS ADMITTED FOR CHEST PAIN. HE IS ALERT AND ORIENTED ON MORNING ROUNDS. HE IS SITTING UP IN BED EATING BREAKFAST. HE DENIES CHEST PAIN OR SHORTNESS OF BREATH ON ROUNDS.LUNGS ARE CLEAR TO AUSCULTATION. VITALS THIS AM ARE 98.1-70-20-97%-144/66. CBC WNL EXCEPT RBC 3.38, HGB 10.8, HCT 32.0. CMP WNL EXCEPT BUN 5, CALCIUM 8.3, MAGNESIUM 1.4, TOTAL PROTEIN 6.2, ALBUMIN 2.9, A/ G RATIO 0.9. WE OBTAINED AN ECHO. IT REPORTED EJECTION FRACTION OF 46%. WE WILL SUPPLEMENT MAGNESIUM AND START ALDACTONE 25MG DAILY. WILL DISCONTINUE POTASSIUM PROTOCOL. PATIENT REPORTS A HISTORY OF HIV BUT IS NOT ON ANY ANTI-VIRAL MEDICATIONS. WE WILL CHECK AN IN HOUSE HIV TEST AND CD4 COUNT. WE WILL RECHECK AM LABS AND FOLLOW UP WITH PATIENT IN THE MORNING. - Past Medical Family Social History Past Med/Fam/Surg Hx: No changes since H&P Allergies: Allergies No Known Drug Allergies Allergy (Verified 01/31/17 18:10) - Review of Systems ROS: No change since H&P - Vital Signs and I&O's Vital Signs: Temperature 98.5 F Pulse Rate [Right Brachial] 77 Pulse Rate [Left Brachial] 73 Pulse Rate 75 Respiratory Rate 20 Blood Pressure [Right Arm] 141/82 Blood Pressure [Left Arm] 144/50 Blood Pressure 155/82 O2 Sat by Pulse Oximetry 97 Intake and Output: Intake & Output 02/23/17 02/24/17 02/25/17 02/26/17 11:59 11:59 11:59 11:59 Intake Total 240 1720 1540 Output Total 200 1800 Balance 40 -80 1540 - Physical Exam Oriented: Normal Eyes: Normal Ear: Normal Nose: Normal Throat: Normal Respiratory: Normal Cardiovascular: Normal : Normal Auscultation: Bowel Sounds: Normal Palpation: Normal Tenderness: Epigastric, Moderate. negative: Rebound, Guarding, Rigidity Skin: Normal Musculoskeletal: Normal Psychiatric: Normal Mood Description: Calm Affect: Normal Speech Pattern: Clear, Appropriate - Laboratory and Diagnostics Result Diagrams: 02/26/17 04:20 02/26/17 04:20 Labs: Laboratory WBC 4.0 X10^3/uL (3.6-10.0) 02/26/17 04:20 RBC 3.38 X10^6/uL (4.7-6.0) L 02/26/17 04:20 Hgb 10.8 g/dL (13.5-18.0) L 02/26/17 04:20 Hct 32.0 % (42.0-54.0) L 02/26/17 04:20 MCV 94.8 fL (80.0-100.0) 02/26/17 04:20 MCH 32.0 pg (27.0-34.0) 02/26/17 04:20 MCHC 33.7 g/dL (33.0-35.0) 02/26/17 04:20 RDW 13.9 % (11.6-16.5) 02/26/17 04:20 Plt Count 167 X10^3/uL (150.0-450.0) 02/26/17 04:20 MPV 8.8 fL (7.4-11.0) 02/26/17 04:20 Neut % 52.5 % (42.0-75.0) 02/26/17 04:20 Lymph % 37.1 % (21.0-51.0) 02/26/17 04:20 [place] % 8.6 % (0.0-13.0) 02/26/17 04:20 Eos % 0.6 % (0.9-2.9) L 02/26/17 04:20 Baso % 1.2 % (0.2-1.0) H 02/26/17 04:20 Neut # 2.1 x10^3/uL (2.2-4.8) L 02/26/17 04:20 Lymph # 1.5 X10^3/uL (1.3-2.9) 02/26/17 04:20 [place] # 0.3 x10^3/uL (0.3-0.8) 02/26/17 04:20 Eos # 0.0 x10^3/uL (0.0-0.2) 02/26/17 04:20 Baso # 0.0 X10^3/uL (0.0-0.1) 02/26/17 04:20 Absolute Nucleated RBC 0.0 /100WBC 02/26/17 04:20 Sodium 140 mmol/L (136-145) 02/26/17 04:20 Corrected Sodium TNP 02/26/17 04:20 Potassium 3.6 mmol/L (3.5-5.1) 02/26/17 04:20 Chloride 106 mmol/L (98-107) 02/26/17 04:20 Carbon Dioxide 28.7 mmol/L (21-32) 02/26/17 04:20 BUN 5 mg/dL (7-18) L 02/26/17 04:20 Creatinine 0.73 mg/dL (0.70-1.30) 02/26/17 04:20 Est GFR (MDRD) Af Amer > 60 (>60) 02/26/17 04:20 Est GFR (MDRD) Non-Af > 60 (>60) 02/26/17 04:20 Glucose 90 mg/dL (65-99) 02/26/17 04:20 Calcium 8.3 mg/dL (8.5-10.1) L 02/26/17 04:20 Corrected Calcium 9.2 mg/dL (8.5-10.1) 02/26/17 04:20 Magnesium 1.4 mg/dL (1.7-2.9) L 02/26/17 04:20 Total Bilirubin 0.30 mg/dL (0.2-1.0) 02/26/17 04:20 AST 23 Units/L (15-37) 02/26/17 04:20 ALT 14 Units/L (12-78) 02/26/17 04:20 Alkaline Phosphatase 100 Units/L (46-116) 02/26/17 04:20 Creatine Kinase 108 Units/L (39-308) 02/24/17 15:44 CK-MB (CK-2) 1.0 ng/mL (0-4.0) 02/24/17 15:44 CK/CKMB % Calc 0.9 % (<4) 02/24/17 15:44 Troponin I 0.05 ng/mL (0-1.5) 02/24/17 15:44 Total Protein 6.2 g/dL (6.4-8.2) L 02/26/17 04:20 Albumin 2.9 g/dL (3.4-5.0) L 02/26/17 04:20 Globulin 3.3 g/dL (2.5-4.5) 02/26/17 04:20 Albumin/Globulin Ratio 0.9 Ratio (1.1-2.1) L 02/26/17 04:20 Triglycerides 28 mg/dL (0-150) 02/24/17 05:29 Cholesterol 115 mg/dL (0-200) 02/24/17 05:29 LDL Cholesterol, Calc 50 mg/dL (0-100) 02/24/17 05:29 HDL Cholesterol 59 mg/dL (40-60) 02/24/17 05:29 Cholesterol/HDL Ratio 1.9 (0.0-5.0) 02/24/17 05:29 Specimen Type Clean catch urine 02/25/17 00:00 Urine Color Yellow (YELLOW) 02/25/17 00:00 Urine Appearance Clear (CLEAR) 02/25/17 00:00 Urine pH 7.0 (5.0 - 8.0) 02/25/17 00:00 Ur Specific [place] 1.010 (1.000-1.030) 02/25/17 00:00 Urine Protein Negative (NEGATIVE) 02/25/17 00:00 Urine Glucose (UA) Negative (NEGATIVE) 02/25/17 00:00 Urine Ketones Negative (NEGATIVE) 02/25/17 00:00 Urine Occult Blood Negative (NEGATIVE) 02/25/17 00:00 Urine Nitrite Negative (NEGATIVE) 02/25/17 00:00 Urine Bilirubin Negative (NEGATIVE) 02/25/17 00:00 Urine Urobilinogen Normal (NORMAL) 02/25/17 00:00 Ur Leukocyte Esterase Negative (NEGATIVE) 02/25/17 00:00 Urine RBC None seen /HPF (NEGATIVE) 02/25/17 00:00 Urine WBC 0-2 /HPF (NEGATIVE) 02/25/17 00:00 Ur Squamous Epith Cells Rare /HPF (NEGATIVE) 02/25/17 00:00 Urine Bacteria Negative /HPF (NEGATIVE) 02/25/17 00:00 Ur Culture Indicated? No/not indicated 02/25/17 00:00 H. pylori IgG Antibody Negative (NEGATIVE) 02/24/17 05:29 - Plan (1) Chest pain Status: Acute Qualifiers: Chest pain type: precordial pain Qualified Code(s): R07.2 - Precordial pain Plan: TELEMETRY, MORPHINE 4MG IV Q6H PRN PAIN, NITRO 0.4MG SL Q5M PRN PAIN, CONTINUE TO MONITOR (2) Abdominal pain Status: Acute Qualifiers: Abdominal location: epigastric Qualified Code(s): R10.13 - Epigastric pain Plan: PEPCID 20MG IV Q12H, CONTINUE TO MONITOR (3) Back pain Status: Acute Qualifiers: Back pain location: low back pain Chronicity: acute Back pain laterality : bilateral Sciatica presence: without sciatica Qualified Code(s): M54.5 - Low back pain Plan: MORPHINE 4MG IV Q6H PRN PAIN, CONTINUE TO MONITOR (4) Hypokalemia Status: Acute Plan: POTASSIUM SUPPLEMENTS, CONTINUE TO MONITOR (5) Hypomagnesemia Status: Acute Plan: MAGNESIUM SULFATE 2GM IV, RECHECK LEVELS, CONTINUE TO MONITOR (6) Hyperlipidemia Status: Chronic Qualifiers: Hyperlipidemia type: mixed hyperlipidemia Qualified Code(s): E78.2 - Mixed hyperlipidemia Plan: CONTINUE LIPITOR, CONTINUE TO MONITOR (7) Hypertension Status: Chronic Qualifiers: Hypertension type: essential hypertension Qualified Code(s): I10 - Essential (primary) hypertension Plan: CONTINUE LISINOPRIL, CONTINUE TO MONITOR
[2017-02-26] MEDS: TYLENOL 325 MG TAB PO PRN (14:25)
[2017-02-26] MEDS: MORPHINE SULFATE INJ 4 MG IVP PRN (17:18)
[2017-02-26] MEDS: LIPITOR TAB 10 MG PO SCH (20:36)
[2017-02-27] MEDS: MORPHINE SULFATE INJ 4 MG IVP PRN ×2 (00:06→21:03)
[2017-02-27 05:49] LABS: BASOPHILS % (AUTO) 0.6 % (0.2-1.0); EOSINOPHILS % (AUTO) 0.7 % (0.9-2.9); HEMATOCRIT 30.4 % (42.0-54.0); HEMOGLOBIN 10.2 g/dL (13.5-18.0); LYMPHOCYTES # (AUTO) 1.9 X10^3/uL (1.3-2.9); LYMPHOCYTES % (AUTO) 41.1 % (21.0-51.0); MEAN CORPUSCULAR HEMOGLOBIN 31.8 pg (27.0-34.0); MEAN CORPUSCULAR HGB CONC 33.7 g/dL (33.0-35.0); MEAN CORPUSCULAR VOLUME 94.2 fL (80.0-100.0); MONOCYTES # (AUTO) 0.5 x10^3/uL (0.3-0.8); MONOCYTES % (AUTO) 10.7 % (0.0-13.0); NEUTROPHILS # (AUTO) 2.2 x10^3/uL (2.2-4.8); NEUTROPHILS % (AUTO) 46.9 % (42.0-75.0); PLATELET COUNT 166 X10^3/uL (150.0-450.0); RED BLOOD COUNT 3.22 X10^6/uL (4.7-6.0); RED CELL DISTRIBUTION WIDTH 13.8 % (11.6-16.5); WHITE BLOOD COUNT 4.7 X10^3/uL (3.6-10.0)
[2017-02-27 05:54] LABS: ALANINE AMINOTRANSFERASE 14 Units/L (12-78); ALBUMIN 2.8 g/dL (3.4-5.0); ALKALINE PHOSPHATASE 97 Units/L (46-116); ASPARTATE AMINO TRANSFERASE 26 Units/L (15-37); BLOOD UREA NITROGEN 7 mg/dL (7-18); CALCIUM 8.3 mg/dL (8.5-10.1); CARBON DIOXIDE 29.9 mmol/L (21-32); CHLORIDE 107 mmol/L (98-107); COR CA(FOR HYPOALB) 9.3 mg/dL (8.5-10.1); CREATININE 0.71 mg/dL (0.70-1.30); GLUCOSE 90 mg/dL (65-99); MAGNESIUM 1.3 mg/dL (1.7-2.9); SODIUM 141 mmol/L (136-145); TOTAL PROTEIN 6.2 g/dL (6.4-8.2); eGFR BLACK RACES > 60 (>60); eGFR NON BLACK RACES > 60 (>60)
[2017-02-27 06:42] LABS: PLATELET MORPHOLOGY COMMENT NORMAL (NORMAL)
[2017-02-27] MEDS: MAGNESIUM SULFATE 1 GM/100 mL PREMIX 1 GM/100 ML BAG IV SCH ×2 (10:41→12:23)
[2017-02-27] MEDS: PEPCID 20 MG IV PREMIX* 20 MG/50 ML BAG IV SCH ×2 (10:41→20:59)
[2017-02-27] MEDS: ASPIRIN PO SCH (10:42)
[2017-02-27] MEDS: FOLIC ACID TAB 1 MG PO SCH (10:42)
[2017-02-27] MEDS: NORCO 7.5/325 MG TAB PO PRN ×3 (10:42→23:59)
[2017-02-27] MEDS: ZESTRIL TAB 10 MG PO SCH (10:42)
[2017-02-27] MEDS: ALDACTONE TAB 25 MG PO SCH (10:42)
[2017-02-27 10:46] LABS: CKMB % 1.7 % (<4); CREATINE KINASE MB 1.2 ng/mL (0-4.0); TROPONIN I 0.05 ng/mL (0-1.5)
--- NOTE | 2017-02-27 11:00 | PCM.PROG ---
Progress Note - Progress Note for Day of Date: 02/27/17 - Subjective Subjective: IS ALERT AND ORIENTED ON MORNING ROUNDS. HE IS SITTING UP IN BED EATING BREAKFAST. HE IS NOTED WITH COMPLAINTS OF CHEST PAIN AND LOWE BACK PAIN THIS MORNING .LUNGS ARE CLEAR TO AUSCULTATION. VITALS THIS AM ARE 988.3-62-20-96%-123/70. CBC WNL EXCEPT RBC 3.22, HGB 10.2, HCT 30.4. CMP WNL EXCEPT CALCIUM 8.3, MAGNESIUM 1.3, TOTAL PROTEIN 6.2, ALBUMIN 2.8, A/G RATIO 0.8. HIV SCREEN AND CD4 COUNT ARE PENDING. WE WILL SUPPLEMENT MAGNESIUM TODAY AND ORDER SERIAL CARDIAC ENZYMES AND EKGs. WE WILL START [place] 5/325MG PO Q6H PRN. WE WILL RECHECK AM LABS AND FOLLOW UP WITH PATIENT IN THE MORNING. - Past Medical Family Social History Past Med/Fam/Surg Hx: No changes since H&P Allergies: Allergies No Known Drug Allergies Allergy (Verified 01/31/17 18:10) - Review of Systems ROS: No change since H&P - Vital Signs and I&O's Vital Signs: Temperature 98.3 F Pulse Rate [Right Brachial] 62 Pulse Rate [Left Brachial] 86 Pulse Rate 75 Respiratory Rate 20 Blood Pressure [Right Arm] 123/70 Blood Pressure [Left Arm] 155/72 Blood Pressure 155/82 O2 Sat by Pulse Oximetry 97 Intake and Output: Intake & Output 02/24/17 02/25/17 02/26/17 02/27/17 11:59 11:59 11:59 11:59 Intake Total 240 1720 1540 796 Output Total 200 1800 Balance 40 -80 1540 796 - Physical Exam Oriented: Normal Eyes: Normal Ear: Normal Nose: Normal Throat: Normal Respiratory: Normal Cardiovascular: Normal : Normal Auscultation: Bowel Sounds: Normal Palpation: Normal Tenderness: Normal. negative: Rebound, Guarding, Rigidity Skin: Normal Musculoskeletal: Back:Lumbar Psychiatric: Normal Mood Description: Calm Affect: Normal Speech Pattern: Clear, Appropriate - Laboratory and Diagnostics Result Diagrams: 02/27/17 03:30 02/27/17 03:30 Labs: Laboratory WBC 4.7 X10^3/uL (3.6-10.0) 02/27/17 03:30 RBC 3.22 X10^6/uL (4.7-6.0) L 02/27/17 03:30 Hgb 10.2 g/dL (13.5-18.0) L 02/27/17 03:30 Hct 30.4 % (42.0-54.0) L 02/27/17 03:30 MCV 94.2 fL (80.0-100.0) 02/27/17 03:30 MCH 31.8 pg (27.0-34.0) 02/27/17 03:30 MCHC 33.7 g/dL (33.0-35.0) 02/27/17 03:30 RDW 13.8 % (11.6-16.5) 02/27/17 03:30 Plt Count 166 X10^3/uL (150.0-450.0) 02/27/17 03:30 Plt Count Comment Adequate (ADEQUATE) 02/27/17 03:30 MPV 9.0 fL (7.4-11.0) 02/27/17 03:30 Neut % 46.9 % (42.0-75.0) 02/27/17 03:30 Lymph % 41.1 % (21.0-51.0) 02/27/17 03:30 [place] % 10.7 % (0.0-13.0) 02/27/17 03:30 Eos % 0.7 % (0.9-2.9) L 02/27/17 03:30 Baso % 0.6 % (0.2-1.0) 02/27/17 03:30 Neut # 2.2 x10^3/uL (2.2-4.8) 02/27/17 03:30 Lymph # 1.9 X10^3/uL (1.3-2.9) 02/27/17 03:30 [place] # 0.5 x10^3/uL (0.3-0.8) 02/27/17 03:30 Eos # 0.0 x10^3/uL (0.0-0.2) 02/27/17 03:30 Baso # 0.0 X10^3/uL (0.0-0.1) 02/27/17 03:30 Absolute Nucleated RBC 0.0 /100WBC 02/27/17 03:30 Total Counted 100 02/27/17 03:30 Neutrophils % (Manual) 42 % (39-76) 02/27/17 03:30 Lymphocytes % (Manual) 49 % (13-43) H 02/27/17 03:30 Monocytes % (Manual) 9 % (4-9) 02/27/17 03:30 Plt Morphology Comment Normal (NORMAL) 02/27/17 03:30 RBC Morphology Normal (NORMAL) 02/27/17 03:30 Sodium 141 mmol/L (136-145) 02/27/17 03:30 Corrected Sodium TNP 02/27/17 03:30 Potassium 3.5 mmol/L (3.5-5.1) 02/27/17 03:30 Chloride 107 mmol/L (98-107) 02/27/17 03:30 Carbon Dioxide 29.9 mmol/L (21-32) 02/27/17 03:30 BUN 7 mg/dL (7-18) 02/27/17 03:30 Creatinine 0.71 mg/dL (0.70-1.30) 02/27/17 03:30 Est GFR (MDRD) Af Amer > 60 (>60) 02/27/17 03:30 Est GFR (MDRD) Non-Af > 60 (>60) 02/27/17 03:30 Glucose 90 mg/dL (65-99) 02/27/17 03:30 Calcium 8.3 mg/dL (8.5-10.1) L 02/27/17 03:30 Corrected Calcium 9.3 mg/dL (8.5-10.1) 02/27/17 03:30 Magnesium 1.3 mg/dL (1.7-2.9) L 02/27/17 03:30 Total Bilirubin 0.20 mg/dL (0.2-1.0) 02/27/17 03:30 AST 26 Units/L (15-37) 02/27/17 03:30 ALT 14 Units/L (12-78) 02/27/17 03:30 Alkaline Phosphatase 97 Units/L (46-116) 02/27/17 03:30 Creatine Kinase 72 Units/L (39-308) 02/27/17 09:55 CK-MB (CK-2) 1.2 ng/mL (0-4.0) 02/27/17 09:55 CK/CKMB % Calc 1.7 % (<4) 02/27/17 09:55 Troponin I 0.05 ng/mL (0-1.5) 02/27/17 09:55 Total Protein 6.2 g/dL (6.4-8.2) L 02/27/17 03:30 Albumin 2.8 g/dL (3.4-5.0) L 02/27/17 03:30 Globulin 3.4 g/dL (2.5-4.5) 02/27/17 03:30 Albumin/Globulin Ratio 0.8 Ratio (1.1-2.1) L 02/27/17 03:30 Triglycerides 28 mg/dL (0-150) 02/24/17 05:29 Cholesterol 115 mg/dL (0-200) 02/24/17 05:29 LDL Cholesterol, Calc 50 mg/dL (0-100) 02/24/17 05:29 HDL Cholesterol 59 mg/dL (40-60) 02/24/17 05:29 Cholesterol/HDL Ratio 1.9 (0.0-5.0) 02/24/17 05:29 Specimen Type Clean catch urine 02/25/17 00:00 Urine Color Yellow (YELLOW) 02/25/17 00:00 Urine Appearance Clear (CLEAR) 02/25/17 00:00 Urine pH 7.0 (5.0 - 8.0) 02/25/17 00:00 Ur Specific [place] 1.010 (1.000-1.030) 02/25/17 00:00 Urine Protein Negative (NEGATIVE) 02/25/17 00:00 Urine Glucose (UA) Negative (NEGATIVE) 02/25/17 00:00 Urine Ketones Negative (NEGATIVE) 02/25/17 00:00 Urine Occult Blood Negative (NEGATIVE) 02/25/17 00:00 Urine Nitrite Negative (NEGATIVE) 02/25/17 00:00 Urine Bilirubin Negative (NEGATIVE) 02/25/17 00:00 Urine Urobilinogen Normal (NORMAL) 02/25/17 00:00 Ur Leukocyte Esterase Negative (NEGATIVE) 02/25/17 00:00 Urine RBC None seen /HPF (NEGATIVE) 02/25/17 00:00 Urine WBC 0-2 /HPF (NEGATIVE) 02/25/17 00:00 Ur Squamous Epith Cells Rare /HPF (NEGATIVE) 02/25/17 00:00 Urine Bacteria Negative /HPF (NEGATIVE) 02/25/17 00:00 Ur Culture Indicated? No/not indicated 02/25/17 00:00 H. pylori IgG Antibody Negative (NEGATIVE) 02/24/17 05:29 - Plan (1) Chest pain Status: Acute Qualifiers: Chest pain type: precordial pain Qualified Code(s): R07.2 - Precordial pain Plan: CARDIAC ENZYMES AND EKGs, TELEMETRY, MORPHINE 4MG IV Q6H PRN PAIN, NITRO 0.4MG SL Q5M PRN PAIN, CONTINUE TO MONITOR (2) Abdominal pain Status: Acute Qualifiers: Abdominal location: epigastric Qualified Code(s): R10.13 - Epigastric pain Plan: PEPCID 20MG IV Q12H, CONTINUE TO MONITOR (3) Back pain Status: Acute Qualifiers: Back pain location: low back pain Chronicity: acute Back pain laterality : bilateral Sciatica presence: without sciatica Qualified Code(s): M54.5 - Low back pain Plan: NORCO 5/325 PO Q6H PRN, MORPHINE 4MG IV Q6H PRN PAIN, CONTINUE TO MONITOR (4) Hypokalemia Status: Acute Plan: CONTINUE TO MONITOR (5) Hypomagnesemia Status: Acute Plan: MAGNESIUM SULFATE 2GM IV, RECHECK LEVELS, CONTINUE TO MONITOR (6) Hyperlipidemia Status: Chronic Qualifiers: Hyperlipidemia type: mixed hyperlipidemia Qualified Code(s): E78.2 - Mixed hyperlipidemia Plan: CONTINUE LIPITOR, CONTINUE TO MONITOR (7) Hypertension Status: Chronic Qualifiers: Hypertension type: essential hypertension Qualified Code(s): I10 - Essential (primary) hypertension Plan: CONTINUE LISINOPRIL, CONTINUE TO MONITOR
[2017-02-27] MEDS: PROTONIX INJ 40 MG VIAL IVP SCH ×2 (14:34→21:01)
[2017-02-27 16:32] LABS: CKMB % 1.8 % (<4); CREATINE KINASE 56 Units/L (39-308); CREATINE KINASE MB < 1.0 ng/mL (0-4.0); TROPONIN I 0.05 ng/mL (0-1.5)
[2017-02-27] MEDS: LIPITOR TAB 10 MG PO SCH (20:59)
[2017-02-27 22:52] LABS: CKMB % 1.6 % (<4); CREATINE KINASE 62 Units/L (39-308); CREATINE KINASE MB < 1.0 ng/mL (0-4.0); TROPONIN I 0.06 ng/mL (0-1.5)
[2017-02-28 06:15] LABS: BASOPHILS % (AUTO) 0.5 % (0.2-1.0); EOSINOPHILS % (AUTO) 0.8 % (0.9-2.9); HEMOGLOBIN 10.7 g/dL (13.5-18.0); LYMPHOCYTES # (AUTO) 1.9 X10^3/uL (1.3-2.9); MEAN CORPUSCULAR HEMOGLOBIN 31.6 pg (27.0-34.0); MEAN CORPUSCULAR HGB CONC 33.4 g/dL (33.0-35.0); MEAN CORPUSCULAR VOLUME 94.6 fL (80.0-100.0); MEAN PLATELET VOLUME 9.1 fL (7.4-11.0); MONOCYTES # (AUTO) 0.5 x10^3/uL (0.3-0.8); NEUTROPHILS # (AUTO) 1.7 x10^3/uL (2.2-4.8); NEUTROPHILS % (AUTO) 40.7 % (42.0-75.0); PLATELET COUNT 168 X10^3/uL (150.0-450.0); RED BLOOD COUNT 3.38 X10^6/uL (4.7-6.0); RED CELL DISTRIBUTION WIDTH 13.6 % (11.6-16.5); WHITE BLOOD COUNT 4.1 X10^3/uL (3.6-10.0)
[2017-02-28 06:38] LABS: ALANINE AMINOTRANSFERASE 17 Units/L (12-78); ALBUMIN 2.8 g/dL (3.4-5.0); ALKALINE PHOSPHATASE 85 Units/L (46-116); ASPARTATE AMINO TRANSFERASE 24 Units/L (15-37); BLOOD UREA NITROGEN 8 mg/dL (7-18); CALCIUM 8.9 mg/dL (8.5-10.1); CARBON DIOXIDE 28.3 mmol/L (21-32); CHLORIDE 106 mmol/L (98-107); COR CA(FOR HYPOALB) 9.9 mg/dL (8.5-10.1); CREATININE 0.62 mg/dL (0.70-1.30); GLUCOSE 93 mg/dL (65-99); MAGNESIUM 1.4 mg/dL (1.7-2.9); SODIUM 140 mmol/L (136-145); TOTAL PROTEIN 6.4 g/dL (6.4-8.2); eGFR BLACK RACES > 60 (>60); eGFR NON BLACK RACES > 60 (>60)
[2017-02-28] MEDS: ALDACTONE TAB 25 MG PO SCH (08:57)
[2017-02-28] MEDS: ASPIRIN PO SCH (08:57)
[2017-02-28] MEDS: FOLIC ACID TAB 1 MG PO SCH (08:57)
[2017-02-28] MEDS: ZESTRIL TAB 10 MG PO SCH (08:57)
[2017-02-28] MEDS: PROTONIX INJ 40 MG VIAL IVP SCH (08:58)
[2017-02-28] MEDS: PEPCID 20 MG IV PREMIX* 20 MG/50 ML BAG IV SCH (08:58)
[2017-02-28] MEDS: NORCO 7.5/325 MG TAB PO PRN ×2 (08:58→19:12)
[2017-02-28 17:36] VITALS: BP 115/57
== END 2017-02-28 19:55 | disposition home or self-care (01) | DRG 313 ==
LOC: ER 23:10 → MED/SURG 02-24 04:35 → OBSVTOIN 02-25 07:30
PROVIDERS: ADMIT Internal Medicine; ATTEND Internal Medicine
DX: R07.2 Precordial pain (principal); R10.13 Epigastric pain; R06.02 Shortness of breath; R53.1 Weakness; Z95.0 Presence of cardiac pacemaker; M54.5 Low back pain; I10 Essential (primary) hypertension; R94.31 Abnormal electrocardiogram [ECG] [EKG]; M47.896 Other spondylosis, lumbar region; E78.2 Mixed hyperlipidemia; K21.9 Gastro-esophageal reflux disease without esophagitis; E87.6 Hypokalemia
CPT/HCPCS: 36415; 71010; 72100; 74022; 80053; 80061; 81001; 82550; 82553; 83735; 84132; 84484; 85025; 86361; 86677; 86689; 86701; 93005; 93010; 93306; 94760; 96372; 99284; A4216; A4222; C9113; S0028; G0378; J1885; J2270; J2405

== ENCOUNTER 2017-03-03 19:28 | Emergency (ER) | payer OTHER, MEDICAID ==
[2017-03-03 19:33] VITALS: BMI 19.5
--- NOTE | 2017-03-03 20:11 | DR.GENAD ---
HPI - PCP Primary Care Physician: NFD - HPI Comment HPI Comment: BURNING CHEST PAIN SUBSTERNAL GOING INTO UPPER STOMACK. GOODIE POWDER TAKING FOR PAIN. PAIN PERSISTENT. NECK PAIN FOR SEVERAL DAYS. CHRONIC NECK AND BACK PAIN. USE TO BE IN PAIN CLINIC FOR BACK AND NECK PAIN. PATIENT DISCHARGE FROM HOSPITAL RECENTLY FOR CHEST PAIN. - Complaint/Symptoms Chief Complaint Doctors Comments: CHEST PAIN, NECK PAIN AND EPIGASTRIC PAIN TODAY. Chief Complaint:: "I have been having chest pain now for a couple of hours. It hurts and perales all the way down into my stomach. I also have some neck pain as well." Self Treatment fo Chief Complaint: Goodie powder - Nurses notes reviewed Nurses Notes Review: Yes - Source History Provided: Patient - Mode of Arrival Mode of Arrival: Ambulatory - Timing Onset of Chief Complaint: 03/03/17 Came on: Suddenly - Duration Duration: Constant Duration: Hours - Severity Severity: Moderate PMH - PMH Past Medical History: Yes Past Medical History: Angina, Coronary Artery Disease, CVA, Dyslipidemia, GERD, Hypertension Past Surgical History: Yes Surgical History: Cholecystectomy, Other Past Surgical History Comment: Pace maker - Family History History of Family Medical Conditions: Yes Family Medical History: Hypertension - Social History Does patient currently use any type of tobacco product: No Have you used tobacco products in the last 12 months: No Type of Tobacco Use: None Does any household member use tobacco: No Alcohol Use: DAILY Do you use any recreational Drugs:: No Lives With: Family Lives Where: Home - infectious screening In the last 2 months have you had wt loss of >10#?: NO Have you had fever, night sweats or hemotysis?: No Have you traveled outside the country in the last 6 months?: No Isolation: Standard ROS - Review of Systems Constitutional: Weakness, Fatigue. negative: Chills, Fever Eyes: No Symptoms Reported. negative: Eye Pain, Discharge ENTM: No Symptoms Reported. negative: Ear Pain, Nose Discharge, Nose Congestion , Throat Pain Respiratoy: No Symptoms Reported, Non-Productive Cough, Short of Breath. negative: Wheezing, Hemoptysis Cardiovascular: Chest Pain Gastrointestinal/Abdominal: No Symptoms Reported, Nausea Genitourinary: No Symptoms Reported. negative: Dysuria, Frequency, Hematuria Neurological: Weakness, Dizziness. negative: Headache Musculoskeletal: No Symptoms Reported Integumentary: No Symptoms Reported Hematologic/Lymphatic: No Symptoms Reported Endocrine: No Symptoms Reported All Other Systems: Reviewed and Negative PE - Vital Signs Vitals: Temperature 98 F Pulse Rate [Apical] 99 Pulse Rate 86 Respiratory Rate 17 Blood Pressure [Right Arm] 115/57 Blood Pressure [Left Arm] 148/84 Blood Pressure 142/75 O2 Sat by Pulse Oximetry 99 - General Limitations: No Limitations General Appearance: Alert - Head Head Exam: Normal Inspection - Eyes Eye exam: Normal Appearance - ENT ENT Exam: Normal External Ear Exam External Ear Exam: Normal External Inspection TM/Canal Exam: Bilateral Normal Mouth Exam: Normal Inspection Throat Exam: Normal Inspection - Neck Neck Exam: Trachea Midline (LATERAL NECK MUSCLES TENSE.), Tenderness - Chest Chest Inspection: Symmetric Chest Wall Rise - Respiratory Respiratory Exam: Normal Lung Sounds Bilat Respiratory Exam: Bilateral Rhonchi, Lower Rhonchi - Cardiovascular Cardiovascular Exam: Regular Rate, Normal Rhythm, Normal Heart Sounds - Abdominal Exam Abdominal Exam: Normal Bowel Sounds, Soft, Distention Abdominal Tenderness: Epigastrium - Extremities Extremities Exam: Normal Inspection - Back Back Exam: Paraspinal Tenderness (LOWER BACK) - Neurologic Neurological Exam: Alert, Oriented X3 - Psychiatric Psychiatric Exam: Normal Affect, Normal Mood - Skin Skin Exam: Normal Color MDM - Differential Diagnosis Differential Diagnosis: CHEST PAIN, NECK PAIN, CT, GASTRITIS Course - Treatment Treatment: SEE ORDERS. - Education/Counseling Education/Counseling: Patient, Education Educated On: Treatment, Diagnosis, Needs for Follow Up ROR - Labs Reviewed Laboratory Results Reviewed?: Yes Result Diagrams: 03/03/17 20:25 03/03/17 20:25 Laboratory: WBC 3.7 X10^3/uL (3.6-10.0) 03/03/17 20:25 RBC 3.34 X10^6/uL (4.7-6.0) L 03/03/17 20:25 Hgb 10.4 g/dL (13.5-18.0) L 03/03/17 20:25 Hct 31.4 % (42.0-54.0) L 03/03/17 20:25 MCV 94.1 fL (80.0-100.0) 03/03/17 20:25 MCH 31.1 pg (27.0-34.0) 03/03/17 20:25 MCHC 33.0 g/dL (33.0-35.0) 03/03/17 20:25 RDW 13.7 % (11.6-16.5) 03/03/17 20:25 Plt Count 179 X10^3/uL (150.0-450.0) 03/03/17 20:25 MPV 8.7 fL (7.4-11.0) 03/03/17 20:25 Neut % 24.4 % (42.0-75.0) L 03/03/17 20:25 Lymph % 57.7 % (21.0-51.0) H 03/03/17 20:25 [place] % 16.1 % (0.0-13.0) H 03/03/17 20:25 Eos % 0.6 % (0.9-2.9) L 03/03/17 20:25 Baso % 1.2 % (0.2-1.0) H 03/03/17 20:25 Neut # 0.9 x10^3/uL (2.2-4.8) L 03/03/17 20:25 Lymph # 2.1 X10^3/uL (1.3-2.9) 03/03/17 20:25 [place] # 0.6 x10^3/uL (0.3-0.8) 03/03/17 20:25 Eos # 0.0 x10^3/uL (0.0-0.2) 03/03/17 20:25 Baso # 0.0 X10^3/uL (0.0-0.1) 03/03/17 20:25 Absolute Nucleated RBC 0.1 /100WBC 03/03/17 20:25 INR Target Range - 03/03/17 20:25 INR 1.12 (0.8-1.3) 03/03/17 20:25 PTT 28.1 SECONDS (22.9-36.5) 03/03/17 20:25 PTT Comment - 03/03/17 20:25 Sodium 141 mmol/L (136-145) 03/03/17 20:25 Corrected Sodium TNP 03/03/17 20:25 Potassium 3.8 mmol/L (3.5-5.1) 03/03/17 20:25 Chloride 105 mmol/L (98-107) 03/03/17 20:25 Carbon Dioxide 27.2 mmol/L (21-32) 03/03/17 20:25 BUN 7 mg/dL (7-18) 03/03/17 20:25 Creatinine 0.72 mg/dL (0.70-1.30) 03/03/17 20:25 Est GFR (MDRD) Af Amer > 60 (>60) 03/03/17 20:25 Est GFR (MDRD) Non-Af > 60 (>60) 03/03/17 20:25 Glucose 85 mg/dL (65-99) 03/03/17 20:25 Calcium 8.5 mg/dL (8.5-10.1) 03/03/17 20:25 Corrected Calcium TNP 03/03/17 20:25 Magnesium 1.3 mg/dL (1.7-2.9) L 03/03/17 20:25 Total Bilirubin 0.20 mg/dL (0.2-1.0) 03/03/17 20:25 AST 34 Units/L (15-37) 03/03/17 20:25 ALT 19 Units/L (12-78) 03/03/17 20:25 Alkaline Phosphatase 93 Units/L (46-116) 03/03/17 20:25 Creatine Kinase 86 Units/L (39-308) 03/03/17 20:25 CK-MB (CK-2) < 1.0 ng/mL (0-4.0) 03/03/17 20:25 CK/CKMB % Calc 1.2 % (<4) 03/03/17 20:25 Troponin I 0.06 ng/mL (0-1.5) 03/03/17 20:25 B-Natriuretic Peptide 331 pg/mL (0-79) H 03/03/17 20:25 Total Protein 7.0 g/dL (6.4-8.2) 03/03/17 20:25 Albumin 3.4 g/dL (3.4-5.0) 03/03/17 20:25 Globulin 3.6 g/dL (2.5-4.5) 03/03/17 20:25 Albumin/Globulin Ratio 0.9 Ratio (1.1-2.1) L 03/03/17 20:25 - XRAY XRAY Interpreted by: Radiologist XRAY Findings: REPORT DISCUSS WITH PATIENT. - EKG Rhythm: Paced (EKG NOTED) - Diagnosis Discharge Problem: Neck pain Chest pain Qualifiers: Chest pain type: other chest pain Qualified Code(s): R07.89 - Other chest pain ; R07.8 - Other chest pain Back pain Qualifiers: Back pain location: low back pain Chronicity: acute Back pain laterality: bilateral Sciatica presence: without sciatica Qualified Code(s): M54.5 - Low back pain - Discharge Plan Disposition: 01 HOME, SELF-CARE Condition: Stable Prescriptions: Acetaminophen/Codeine Tab [TYLENOL w/CODEINE #3 (300 MG/30 MG) *] 1 tab PO Q8H PRN #15 tab PRN Reason: Pain Ranitidine HCl [ZANTAC TAB 150 MG *] 150 mg PO BID #60 tab - Follow ups/Referrals Follow ups/Referrals: NFD,None [Primary Care Provider] - 3 days - Instructions Instructions: Musculoskeletal Pain, Chest Pain Observation Additional Instructions: RETURN TO ED IF WORSE.
[2017-03-03 20:36] LABS: BASOPHILS % (AUTO) 1.2 % (0.2-1.0); EOSINOPHILS % (AUTO) 0.6 % (0.9-2.9); HEMATOCRIT 31.4 % (42.0-54.0); HEMOGLOBIN 10.4 g/dL (13.5-18.0); LYMPHOCYTES # (AUTO) 2.1 X10^3/uL (1.3-2.9); LYMPHOCYTES % (AUTO) 57.7 % (21.0-51.0); MEAN CORPUSCULAR HEMOGLOBIN 31.1 pg (27.0-34.0); MEAN CORPUSCULAR VOLUME 94.1 fL (80.0-100.0); MEAN PLATELET VOLUME 8.7 fL (7.4-11.0); MONOCYTES # (AUTO) 0.6 x10^3/uL (0.3-0.8); MONOCYTES % (AUTO) 16.1 % (0.0-13.0); NEUTROPHILS # (AUTO) 0.9 x10^3/uL (2.2-4.8); NEUTROPHILS % (AUTO) 24.4 % (42.0-75.0); PLATELET COUNT 179 X10^3/uL (150.0-450.0); RED BLOOD COUNT 3.34 X10^6/uL (4.7-6.0); RED CELL DISTRIBUTION WIDTH 13.7 % (11.6-16.5); WHITE BLOOD COUNT 3.7 X10^3/uL (3.6-10.0)
[2017-03-03 20:54] LABS: BLOOD UREA NITROGEN 7 mg/dL (7-18); CALCIUM 8.5 mg/dL (8.5-10.1); CARBON DIOXIDE 27.2 mmol/L (21-32); CHLORIDE 105 mmol/L (98-107); CREATININE 0.72 mg/dL (0.70-1.30); SODIUM 141 mmol/L (136-145); TROPONIN I 0.06 ng/mL (0-1.5); eGFR BLACK RACES > 60 (>60); eGFR NON BLACK RACES > 60 (>60)
[2017-03-03 20:58] LABS: ALANINE AMINOTRANSFERASE 19 Units/L (12-78); ALBUMIN 3.4 g/dL (3.4-5.0); ALKALINE PHOSPHATASE 93 Units/L (46-116); ASPARTATE AMINO TRANSFERASE 34 Units/L (15-37); CKMB % 1.2 % (<4); CREATINE KINASE 86 Units/L (39-308); CREATINE KINASE MB < 1.0 ng/mL (0-4.0); MAGNESIUM 1.3 mg/dL (1.7-2.9)
[2017-03-03 20:59] LABS: B-TYPE NATRIURETIC PEPTIDE 331 pg/mL (0-79)
--- NOTE | 2017-03-03 21:41 | RAD ---
HISTORY: Chest pain, shortness of breath. Study: Portable chest. Comparison: Chest x-ray dated February 25, 2017. Findings: The trachea is midline. The cardiac silhouette is enlarged but unchanged. Stable appearance of a mul tilead left chest cardiac pacemaker. The lungs are clear without focal infiltrate or effusion. The bony thorax is unremarkable. IMPRESSION: No acute cardiopulmonary disease. Reported By:
[2017-03-03 21:44] VITALS: BP 148/84
[2017-03-03] MEDS ORDERED: NORCO 5/325 MG TAB PO ONE (22:16)
[2017-03-03] MEDS ORDERED: NORCO 5/325 MG TAB ONE (22:18)
[2017-03-03] MEDS ORDERED: PEPCID TAB 20 MG ONE (22:18)
[2017-03-03] MEDS ORDERED: PEPCID TAB 20 MG PO SCH (23:00)
== END 2017-03-03 22:33 | disposition home or self-care (01) ==
LOC: ER 19:40
DX: R07.89 Other chest pain (principal); M54.5 Low back pain; M54.2 Cervicalgia
CPT/HCPCS: 36415; 71010; 80053; 82550; 82553; 83735; 83880; 84484; 85025; 85610; 85730; 93005; 93010; 99283

== ENCOUNTER 2017-03-09 12:45 | Emergency (ER) | payer OTHER, MEDICAID ==
[2017-03-09 12:56] VITALS: BP 148/78; BMI 20.9
--- NOTE | 2017-03-09 13:08 | DR.GENAD ---
HPI - PCP Primary Care Physician: NONE - Complaint/Symptoms Chief Complaint Doctors Comments: Patient was seen on last week with similar complauint. He states that the pain medicatin (T#3) is not helping. He admits to sore throat, headache and myalgia. He denies fever, vomiting or diarrhea. Chief Complaint:: "MY HEAD, NECK AND THROAT HURTS" Self Treatment fo Chief Complaint: NONE - Source History Provided: Patient - Mode of Arrival Mode of Arrival: Ambulatory - Timing Onset of Chief Complaint: 03/09/17 PMH - PMH Past Medical History: Yes Past Medical History: Angina, Coronary Artery Disease, CVA, Dyslipidemia, GERD, Hypertension Past Medical History Comment: HIV positive Past Surgical History: Yes Surgical History: Cholecystectomy, Other - Family History History of Family Medical Conditions: Yes Family Medical History: Hypertension - Social History Does patient currently use any type of tobacco product: No Have you used tobacco products in the last 12 months: No Type of Tobacco Use: None Does any household member use tobacco: No Alcohol Use: None Do you use any recreational Drugs:: No Lives With: Alone Lives Where: Home - infectious screening In the last 2 months have you had wt loss of >10#?: NO Have you had fever, night sweats or hemotysis?: No Have you traveled outside the country in the last 6 months?: No ROS - Review of Systems Constitutional: negative: Diaphoresis Eyes: No Symptoms Reported ENTM: No Symptoms Reported Respiratoy: No Symptoms Reported Cardiovascular: No Symptoms Reported Gastrointestinal/Abdominal: No Symptoms Reported Genitourinary: No Symptoms Reported Neurological: No Symptoms Reported Musculoskeletal: No Symptoms Reported, Muscle Pain, Neck Integumentary: No Symptoms Reported Hematologic/Lymphatic: No Symptoms Reported Endocrine: No Symptoms Reported Psychiatric: No Symptoms Reported All Other Systems: Reviewed and Negative PE - Vital Signs Vitals: Temperature 98.7 F Pulse Rate 90 Respiratory Rate 18 Blood Pressure [Right Arm] 115/57 Blood Pressure [Left Arm] 148/84 Blood Pressure 148/78 O2 Sat by Pulse Oximetry 100 - General General Appearance: Alert, In No Apparent Distress - Head Head Exam: Normal Inspection, Atraumatic - Eyes Eye exam: Normal Appearance, PERRL, EOMI - ENT ENT Exam: Normal Exam External Ear Exam: Normal External Inspection TM/Canal Exam: Bilateral Normal Nose Exam: Normal Nose Exam Mouth Exam: Normal Inspection Throat Exam: Normal Inspection - Chest Chest Inspection: Normal Inspection - Respiratory Respiratory Exam: Normal Lung Sounds Bilat Respiratory Exam: Bilateral Clear to Auscultation - Cardiovascular Cardiovascular Exam: Regular Rate - Abdominal Exam Abdominal Exam: Normal Inspection, Normal Bowel Sounds Abdominal Tenderness: negative: RUQ, RLQ, LUQ, LLQ, Epigastrium, Suprapubic, Diffuse, Mild, Moderate, Severe, Other - Extremities Extremities Exam: Normal Inspection - Neurologic Neurological Exam: Alert, Oriented X3, CN II-XII Intact - Psychiatric Psychiatric Exam: Normal Affect - Skin Skin Exam: Warm, Dry, Intact ROR - Labs Reviewed Laboratory Results Reviewed?: Yes (strep positive) - Diagnosis Discharge Problem: Pharyngitis, streptococcal, acute - Discharge Plan Condition: Stable - Follow ups/Referrals Follow ups/Referrals: NFD,None [Primary Care Provider] - 3 days - Instructions
[2017-03-09] MEDS ORDERED: TORADOL 60 MG VIAL IM ONE (13:10)
[2017-03-09] MEDS ORDERED: TORADOL 60 MG VIAL ONE (13:17)
[2017-03-09] MEDS ORDERED: BICILLIN L-A IM ONE ×2 (13:37→13:42)
== END 2017-03-09 14:10 | disposition home or self-care (01) ==
LOC: ER 12:51
DX: J02.0 Streptococcal pharyngitis (principal)
CPT/HCPCS: 87880; 96372; 99282; J0570; J1885

== ENCOUNTER 2017-03-14 09:15 | Emergency (ER) | payer OTHER, MEDICAID ==
[2017-03-14 09:20] VITALS: BP 133/68; BMI 20.9
--- NOTE | 2017-03-14 09:54 | DR.GENAD ---
HPI - PCP Primary Care Physician: JAYDA - HPI Comment HPI Comment: HISTORY BELOW. - Complaint/Symptoms Chief Complaint Doctors Comments: LOWER EXTREMITY SWELLING, CHEST AND ABDOMINAL PAIN, LOW BACK PAIN CHRONIC WITH INCREASE PAIN TODAY. NO FEVER. NO DYSURIA. OUT OF TYLENOL 3 THAT HE TAKE FOR CHRONIC PAIN. Chief Complaint:: PATIENT STATED THAT HIS LEGS ARE SWOLLEN. THROAT IS HURTING AND ALSO HAVING STOMACH PAINS. THIS ALL STARTED THIS MORNING. - Nurses notes reviewed Nurses Notes Review: Yes - Source History Provided: Patient - Mode of Arrival Mode of Arrival: Ambulatory - Timing Onset of Chief Complaint: 03/14/17 Came on: Gradually - Duration Duration: Constant Duration: Days - Severity Severity: Moderate PMH - PMH Past Medical History: Yes Past Medical History: Angina, Coronary Artery Disease, CVA, Dyslipidemia, GERD, Hypertension Past Surgical History: Yes Surgical History: Cholecystectomy, Other - Family History History of Family Medical Conditions: Yes Family Medical History: Hypertension - Social History Does patient currently use any type of tobacco product: No Have you used tobacco products in the last 12 months: No Type of Tobacco Use: None Does any household member use tobacco: No Alcohol Use: DAILY Do you use any recreational Drugs:: No Lives With: Family Lives Where: Home - infectious screening In the last 2 months have you had wt loss of >10#?: NO Have you had fever, night sweats or hemotysis?: No Have you traveled outside the country in the last 6 months?: No Isolation: Standard ROS - Review of Systems Constitutional: No Symptoms Reported Eyes: No Symptoms Reported ENTM: No Symptoms Reported Respiratoy: Short of Breath Cardiovascular: Chest Pain, Edema Gastrointestinal/Abdominal: No Symptoms Reported Genitourinary: No Symptoms Reported Neurological: Headache, Weakness, Dizziness Musculoskeletal: Back Pain Integumentary: No Symptoms Reported, Other (EDEMA) Hematologic/Lymphatic: No Symptoms Reported Endocrine: No Symptoms Reported All Other Systems: Reviewed and Negative PE - Vital Signs Vitals: Temperature 97.5 F Pulse Rate 81 Respiratory Rate 20 Blood Pressure [Right Arm] 115/57 Blood Pressure [Left Arm] 148/84 Blood Pressure 133/68 O2 Sat by Pulse Oximetry 100 - General Limitations: No Limitations General Appearance: Alert - Head Head Exam: Normal Inspection - Eyes Eye exam: Normal Appearance - ENT ENT Exam: Normal External Ear Exam External Ear Exam: Normal External Inspection TM/Canal Exam: Bilateral Normal Nose Exam: Normal Nose Exam Mouth Exam: Normal Inspection Throat Exam: Normal Inspection - Neck Neck Exam: Normal Inspection - Chest Chest Inspection: Symmetric Chest Wall Rise - Respiratory Respiratory Exam: Normal Lung Sounds Bilat Respiratory Exam: Bilateral Clear to Auscultation - Cardiovascular Cardiovascular Exam: Regular Rate, Normal Rhythm, Normal Heart Sounds - Abdominal Exam Abdominal Exam: Normal Bowel Sounds, Soft, Tenderness Abdominal Tenderness: Diffuse, Mild - Extremities Extremities Exam: Edema - Back Back Exam: Paraspinal Tenderness - Neurologic Neurological Exam: Alert, Oriented X3 - Skin Skin Exam: Erythema MDM - Differential Diagnosis Differential Diagnosis: ABDOMINAL PAIN, CHEST PAIN, BACK PAIN, CHRONIC PAIN Course - Treatment Treatment: SEE ORDERS. - Education/Counseling Education/Counseling: Patient, Education Educated On: Diagnosis, Needs for Follow Up ROR - Labs Reviewed Laboratory Results Reviewed?: Yes Result Diagrams: 03/14/17 10:50 03/14/17 10:50 Laboratory: WBC 3.4 X10^3/uL (3.6-10.0) L 03/14/17 10:50 RBC 3.05 X10^6/uL (4.7-6.0) L 03/14/17 10:50 Hgb 9.4 g/dL (13.5-18.0) L 03/14/17 10:50 Hct 28.4 % (42.0-54.0) L 03/14/17 10:50 MCV 93.2 fL (80.0-100.0) 03/14/17 10:50 MCH 30.8 pg (27.0-34.0) 03/14/17 10:50 MCHC 33.0 g/dL (33.0-35.0) 03/14/17 10:50 RDW 13.4 % (11.6-16.5) 03/14/17 10:50 Plt Count 159 X10^3/uL (150.0-450.0) 03/14/17 10:50 Plt Count Comment Adequate (ADEQUATE) 03/14/17 10:50 MPV 9.1 fL (7.4-11.0) 03/14/17 10:50 Neut % 26.2 % (42.0-75.0) L 03/14/17 10:50 Lymph % 50.8 % (21.0-51.0) 03/14/17 10:50 [place] % 21.7 % (0.0-13.0) H 03/14/17 10:50 Eos % 0.6 % (0.9-2.9) L 03/14/17 10:50 Baso % 0.7 % (0.2-1.0) 03/14/17 10:50 Neut # 0.9 x10^3/uL (2.2-4.8) L 03/14/17 10:50 Lymph # 1.7 X10^3/uL (1.3-2.9) 03/14/17 10:50 [place] # 0.7 x10^3/uL (0.3-0.8) 03/14/17 10:50 Eos # 0.0 x10^3/uL (0.0-0.2) 03/14/17 10:50 Baso # 0.0 X10^3/uL (0.0-0.1) 03/14/17 10:50 Absolute Nucleated RBC 0.0 /100WBC 03/14/17 10:50 Total Counted 100 03/14/17 10:50 Neutrophils % (Manual) 32 % (39-76) L 03/14/17 10:50 Band Neutrophils % 3 % (0-10) 03/14/17 10:50 Lymphocytes % (Manual) 45 % (13-43) H 03/14/17 10:50 Monocytes % (Manual) 18 % (4-9) H 03/14/17 10:50 Eosinophils % (Manual) 2 % (0-6) 03/14/17 10:50 Plt Morphology Comment Normal (NORMAL) 03/14/17 10:50 RBC Morphology Normal (NORMAL) 03/14/17 10:50 Sodium 142 mmol/L (136-145) 03/14/17 10:50 Corrected Sodium TNP 03/14/17 10:50 Potassium 3.2 mmol/L (3.5-5.1) L 03/14/17 10:50 Chloride 108 mmol/L (98-107) H 03/14/17 10:50 Carbon Dioxide 25.8 mmol/L (21-32) 03/14/17 10:50 BUN 7 mg/dL (7-18) 03/14/17 10:50 Creatinine 0.79 mg/dL (0.70-1.30) 03/14/17 10:50 Est GFR (MDRD) Af Amer > 60 (>60) 03/14/17 10:50 Est GFR (MDRD) Non-Af > 60 (>60) 03/14/17 10:50 Glucose 91 mg/dL (65-99) 03/14/17 10:50 Calcium 8.6 mg/dL (8.5-10.1) 03/14/17 10:50 Corrected Calcium 9.6 mg/dL (8.5-10.1) 03/14/17 10:50 Total Bilirubin 0.40 mg/dL (0.2-1.0) 03/14/17 10:50 AST 24 Units/L (15-37) 03/14/17 10:50 ALT 15 Units/L (12-78) 03/14/17 10:50 Alkaline Phosphatase 68 Units/L (46-116) 03/14/17 10:50 Creatine Kinase 67 Units/L (39-308) 03/14/17 10:50 CK-MB (CK-2) < 1.0 ng/mL (0-4.0) 03/14/17 10:50 CK/CKMB % Calc 1.5 % (<4) 03/14/17 10:50 Troponin I 0.08 ng/mL (0-1.5) 03/14/17 10:50 B-Natriuretic Peptide 657 pg/mL (0-79) H* 03/14/17 10:50 Total Protein 6.0 g/dL (6.4-8.2) L 03/14/17 10:50 Albumin 2.7 g/dL (3.4-5.0) L 03/14/17 10:50 Globulin 3.3 g/dL (2.5-4.5) 03/14/17 10:50 Albumin/Globulin Ratio 0.8 Ratio (1.1-2.1) L 03/14/17 10:50 - XRAY XRAY Interpreted by: Radiologist XRAY Findings: REPORT DISCUSS WITH PATIENT. - EKG Rhythm: Paced (EKG NOTED) - Diagnosis Discharge Problem: Chest pain Qualifiers: Chest pain type: precordial pain Qualified Code(s): R07.2 - Precordial pain Abdominal pain Qualifiers: Abdominal location: generalized Qualified Code(s): R10.84 - Generalized abdominal pain Back pain Qualifiers: Back pain location: low back pain Chronicity: chronic Back pain laterality: bilateral Sciatica presence: with sciatica Sciatica laterality: bilateral sciatica Qualified Code(s): M54.42 - Lumbago with sciatica, left side Chronic pain Qualifiers: Chronic pain type: chronic pain syndrome Qualified Code(s): G89.4 - Chronic pain syndrome Anemia Qualifiers: Anemia type: unspecified type Qualified Code(s): D64.9 - Anemia, unspecified - Discharge Plan Disposition: 01 HOME, SELF-CARE Condition: Stable Prescriptions: Acetaminophen with Codeine [Tylenol/Codeine #3 300-30 mg] 1 tab PO Q8H PRN #15 tab PRN Reason: Pain Lansoprazole [Prevacid] 30 mg PO DAILY #30 cap - Follow ups/Referrals Follow ups/Referrals: NFD,None [Primary Care Provider] - 3 days - Instructions Instructions: Abdominal Pain, Adult, [id number], Chronic Pain, Edema, Easy-to -Read Additional Instructions: RETURN TO ED IF WORSE.
[2017-03-14 11:11] LABS: BASOPHILS % (AUTO) 0.7 % (0.2-1.0); EOSINOPHILS % (AUTO) 0.6 % (0.9-2.9); HEMATOCRIT 28.4 % (42.0-54.0); HEMOGLOBIN 9.4 g/dL (13.5-18.0); LYMPHOCYTES # (AUTO) 1.7 X10^3/uL (1.3-2.9); LYMPHOCYTES % (AUTO) 50.8 % (21.0-51.0); MEAN CORPUSCULAR HEMOGLOBIN 30.8 pg (27.0-34.0); MEAN CORPUSCULAR VOLUME 93.2 fL (80.0-100.0); MEAN PLATELET VOLUME 9.1 fL (7.4-11.0); MONOCYTES # (AUTO) 0.7 x10^3/uL (0.3-0.8); MONOCYTES % (AUTO) 21.7 % (0.0-13.0); NEUTROPHILS # (AUTO) 0.9 x10^3/uL (2.2-4.8); NEUTROPHILS % (AUTO) 26.2 % (42.0-75.0); PLATELET COUNT 159 X10^3/uL (150.0-450.0); RED BLOOD COUNT 3.05 X10^6/uL (4.7-6.0); RED CELL DISTRIBUTION WIDTH 13.4 % (11.6-16.5); WHITE BLOOD COUNT 3.4 X10^3/uL (3.6-10.0)
[2017-03-14 11:26] LABS: BAND NEUTROPHILS % 3 % (0-10); PLATELET MORPHOLOGY COMMENT NORMAL (NORMAL)
[2017-03-14 11:28] LABS: B-TYPE NATRIURETIC PEPTIDE 657 pg/mL (0-79)
[2017-03-14 11:38] LABS: BLOOD UREA NITROGEN 7 mg/dL (7-18); CALCIUM 8.6 mg/dL (8.5-10.1); CARBON DIOXIDE 25.8 mmol/L (21-32); CHLORIDE 108 mmol/L (98-107); CREATININE 0.79 mg/dL (0.70-1.30); SODIUM 142 mmol/L (136-145); TROPONIN I 0.08 ng/mL (0-1.5); eGFR BLACK RACES > 60 (>60); eGFR NON BLACK RACES > 60 (>60)
[2017-03-14] MEDS ORDERED: TYLENOL #3 TAB (W/CODEINE) PO ONE ×2 (11:42→11:46)
[2017-03-14] MEDS ORDERED: LASIX PO ONE (11:42)
[2017-03-14 11:44] LABS: ALANINE AMINOTRANSFERASE 15 Units/L (12-78); ALKALINE PHOSPHATASE 68 Units/L (46-116); ASPARTATE AMINO TRANSFERASE 24 Units/L (15-37); CREATINE KINASE 67 Units/L (39-308); CREATINE KINASE MB < 1.0 ng/mL (0-4.0)
[2017-03-14] MEDS ORDERED: LASIX ONE (11:46)
[2017-03-14 11:50] LABS: CKMB % 1.5 % (<4)
[2017-03-14 12:15] LABS: ALBUMIN 2.7 g/dL (3.4-5.0); COR CA(FOR HYPOALB) 9.6 mg/dL (8.5-10.1)
[2017-03-14] MEDS ORDERED: POTASSIUM CHLORIDE LIQ 20 MEQ UDC PO ONE (13:39)
[2017-03-14] MEDS ORDERED: LEVSIN/MAALOX/LIDOC VISC PO ONE (13:43)
[2017-03-14] MEDS ORDERED: PEPCID TAB 20 MG PO ONE (13:43)
--- NOTE | 2017-03-14 13:50 | RAD ---
HISTORY: Chest pain leg swelling Study: Single-view chest Comparison: March 03, 2017 Findings: The trachea is midline. The cardiac silhouette is enlarged but stable as is a left-sided pacing sonia ce. The lungs are clear without focal infiltrate or effusion. The bony thorax is unremarkable. IMPRESSION: 1. No acute cardiopulmonary disease. Reported By:
== END 2017-03-14 14:14 | disposition home or self-care (01) ==
LOC: ER 09:25
DX: R07.2 Precordial pain (principal); R10.84 Generalized abdominal pain; M54.42 Lumbago with sciatica, left side; G89.4 Chronic pain syndrome; D64.89 Other specified anemias; R06.02 Shortness of breath
CPT/HCPCS: 36415; 71010; 80053; 82550; 82553; 83880; 84484; 85025; 93005; 93010; 99283

== ENCOUNTER 2017-03-20 17:41 | Emergency (ER) | payer OTHER, MEDICAID ==
[2017-03-20] MEDS ORDERED: ASPIRIN ONE (17:54)
--- NOTE | 2017-03-20 17:57 | DR.GENAD ---
HPI - HPI Comment HPI Comment: SOD, EDEMA LOWER EXTREMITIES. CHRONIC CHEST AND ABDOMINAL PAIN STILL PRESENT. NO FEVER OR DYSURIA. NO TRAUMA. NAUSEA BUT NO VOMITING. - Complaint/Symptoms Chief Complaint Doctors Comments: CHEST PAIN, ANDOMINAL PAIN, EDEMA LOWER EXTREMITY TIMES ONE DAY. - Nurses notes reviewed Nurses Notes Review: Yes - Source History Provided: Patient, Family Member - Mode of Arrival Mode of Arrival: Ambulatory - Timing Came on: Gradually - Duration Duration: Constant Duration: Weeks - Severity Severity: Moderate PMH - PMH Past Medical History: Angina, Coronary Artery Disease, CVA, Dyslipidemia, GERD, Hypertension Past Surgical History: Yes Surgical History: Cholecystectomy, Other - Family History Family Medical History: Hypertension - Social History Do you use any recreational Drugs:: No ROS - Review of Systems Constitutional: Weakness, Fatigue, Loss of Appetite. negative: Chills, Fever Eyes: No Symptoms Reported. negative: Eye Pain, Discharge ENTM: No Symptoms Reported. negative: Ear Pain, Nose Discharge, Nose Congestion , Throat Pain Respiratoy: No Symptoms Reported, Non-Productive Cough, Short of Breath, Wheezing. negative: Productive Cough, Hemoptysis Cardiovascular: Chest Pain, Edema. negative: Palpitations, Syncope Gastrointestinal/Abdominal: Abdominal Pain, Nausea. negative: Diarrhea, Vomiting Genitourinary: No Symptoms Reported. negative: Dysuria, Frequency, Hematuria Neurological: Weakness. negative: Headache, Dizziness Musculoskeletal: Muscle Pain Integumentary: Change in Color, Other (LOWER EXT. EDEMA.) Hematologic/Lymphatic: Easy Bleeding, Easy Bruising Endocrine: No Symptoms Reported All Other Systems: Reviewed and Negative Unable to Obtain Due To: Dementia PE - Vital Signs Vitals: Temperature 98.7 F Pulse Rate 90 Respiratory Rate 18 Blood Pressure [Right Arm] 115/57 Blood Pressure [Left Arm] 148/84 Blood Pressure 135/53 O2 Sat by Pulse Oximetry 98 - General Limitations: No Limitations General Appearance: Alert - Head Head Exam: Normal Inspection - Eyes Eye exam: Normal Appearance - ENT ENT Exam: Normal External Ear Exam External Ear Exam: Normal External Inspection TM/Canal Exam: Bilateral Normal Nose Exam: Normal Nose Exam Mouth Exam: Normal Inspection Throat Exam: Normal Inspection - Neck Neck Exam: Normal Inspection, Trachea Midline - Chest Chest Inspection: Symmetric Chest Wall Rise - Respiratory Respiratory Exam: Normal Lung Sounds Bilat Respiratory Exam: Bilateral Rhonchi, Lower Rhonchi - Cardiovascular Cardiovascular Exam: Regular Rate, Normal Rhythm, Normal Heart Sounds - Abdominal Exam Abdominal Exam: Normal Bowel Sounds, Soft, Tenderness Abdominal Tenderness: Diffuse, Mild - Extremities Extremities Exam: Edema (LOWER ECTREMITIES, 1 PLUS.) - Back Back Exam: Paraspinal Tenderness - Neurologic Neurological Exam: Alert, Oriented X3 - Psychiatric Psychiatric Exam: Normal Affect, Normal Mood - Skin Skin Exam: Erythema MDM - Additional Information Additional Information Obtained From: Family - Differential Diagnosis Differential Diagnosis: ABDOMINAL PAIN, CHEST PAIN, EDEMA LOWER EXTREMITIES Course - Treatment Treatment: SEE ORDERS. - Education/Counseling Education/Counseling: Patient, Education Educated On: Diagnosis, Needs for Follow Up ROR - Labs Reviewed Laboratory Results Reviewed?: Yes Result Diagrams: 03/20/17 18:33 03/20/17 18:33 Laboratory: WBC 4.4 X10^3/uL (3.6-10.0) 03/20/17 18:33 RBC 2.85 X10^6/uL (4.7-6.0) L 03/20/17 18:33 Hgb 8.8 g/dL (13.5-18.0) L 03/20/17 18:33 Hct 26.3 % (42.0-54.0) L 03/20/17 18:33 MCV 92.1 fL (80.0-100.0) 03/20/17 18:33 MCH 31.0 pg (27.0-34.0) 03/20/17 18:33 MCHC 33.6 g/dL (33.0-35.0) 03/20/17 18:33 RDW 13.4 % (11.6-16.5) 03/20/17 18:33 Plt Count 168 X10^3/uL (150.0-450.0) 03/20/17 18:33 MPV 10.4 fL (7.4-11.0) 03/20/17 18:33 Neut % 46.7 % (42.0-75.0) 03/20/17 18:33 Lymph % 34.9 % (21.0-51.0) 03/20/17 18:33 Saline % 17.2 % (0.0-13.0) H 03/20/17 18:33 Eos % 0.2 % (0.9-2.9) L 03/20/17 18:33 Baso % 1.0 % (0.2-1.0) 03/20/17 18:33 Neut # 2.1 x10^3/uL (2.2-4.8) L 03/20/17 18:33 Lymph # 1.5 X10^3/uL (1.3-2.9) 03/20/17 18:33 Saline # 0.8 x10^3/uL (0.3-0.8) 03/20/17 18:33 Eos # 0.0 x10^3/uL (0.0-0.2) 03/20/17 18:33 Baso # 0.0 X10^3/uL (0.0-0.1) 03/20/17 18:33 Absolute Nucleated RBC 0.0 /100WBC 03/20/17 18:33 INR Target Range - 03/20/17 18:33 INR 1.27 (0.8-1.3) 03/20/17 18:33 PTT 30.4 SECONDS (22.9-36.5) 03/20/17 18:33 PTT Comment - 03/20/17 18:33 Sodium 145 mmol/L (136-145) 03/20/17 18:33 Corrected Sodium TNP 03/20/17 18:33 Potassium 3.1 mmol/L (3.5-5.1) L 03/20/17 18:33 Chloride 110 mmol/L (98-107) H 03/20/17 18:33 Carbon Dioxide 26.7 mmol/L (21-32) 03/20/17 18:33 BUN 13 mg/dL (7-18) 03/20/17 18:33 Creatinine 0.76 mg/dL (0.70-1.30) 03/20/17 18:33 Est GFR (MDRD) Af Amer > 60 (>60) 03/20/17 18:33 Est GFR (MDRD) Non-Af > 60 (>60) 03/20/17 18:33 Glucose 97 mg/dL (65-99) 03/20/17 18:33 Calcium 8.8 mg/dL (8.5-10.1) 03/20/17 18:33 Corrected Calcium 9.8 mg/dL (8.5-10.1) 03/20/17 18:33 Phosphorus 4.2 mg/dL (2.6-4.7) 03/20/17 18:33 Magnesium 1.1 mg/dL (1.7-2.9) L 03/20/17 18:33 Total Bilirubin 0.40 mg/dL (0.2-1.0) 03/20/17 18:33 AST 26 Units/L (15-37) 03/20/17 18:33 ALT 15 Units/L (12-78) 03/20/17 18:33 Alkaline Phosphatase 67 Units/L (46-116) 03/20/17 18:33 Creatine Kinase 72 Units/L (39-308) 03/20/17 18:33 CK-MB (CK-2) 1.8 ng/mL (0-4.0) 03/20/17 18:33 CK/CKMB % Calc 2.5 % (<4) 03/20/17 18:33 Troponin I 0.74 ng/mL (0-1.5) 03/20/17 18:33 B-Natriuretic Peptide 464 pg/mL (0-79) H 03/20/17 18:33 Total Protein 6.0 g/dL (6.4-8.2) L 03/20/17 18:33 Albumin 2.7 g/dL (3.4-5.0) L 03/20/17 18:33 Globulin 3.3 g/dL (2.5-4.5) 03/20/17 18:33 Albumin/Globulin Ratio 0.8 Ratio (1.1-2.1) L 03/20/17 18:33 - XRAY XRAY Interpreted by: Radiologist XRAY Findings: REPORT DISCUSS WITH PATIENT. - EKG Rhythm: NSR (EKG NOTED.) - Diagnosis Discharge Problem: Abdominal pain Qualifiers: Abdominal location: upper abdomen, unspecified Qualified Code(s): R10.10 - Upper abdominal pain, unspecified Chest pain Qualifiers: Chest pain type: intercostal pain Qualified Code(s): R07.82 - Intercostal pain Edema Qualifiers: Edema type: localized Qualified Code(s): R60.0 - Localized edema - Discharge Plan Disposition: 01 HOME, SELF-CARE Condition: Stable Prescriptions: Furosemide [Lasix] 20 mg PO QAM #10 tab Potassium Chloride [Potassium Chloride Cr] 10 meq PO DAILY #10 tab - Follow ups/Referrals Follow ups/Referrals: Roberto Carlos Hodges [Primary Care Provider] - 3 days - Instructions Instructions: Abdominal Pain, Adult, [id number], Edema, [id number], Chest Pain Observation Additional Instructions: RETURN TO ED IF WORSE.
[2017-03-20] MEDS ORDERED: ASPIRIN PO ONE (18:00)
[2017-03-20 18:18] LABS: EOSINOPHILS % (AUTO) 0.2 % (0.9-2.9); HEMATOCRIT 26.3 % (42.0-54.0); HEMOGLOBIN 8.8 g/dL (13.5-18.0); LYMPHOCYTES # (AUTO) 1.5 X10^3/uL (1.3-2.9); LYMPHOCYTES % (AUTO) 34.9 % (21.0-51.0); MEAN CORPUSCULAR HGB CONC 33.6 g/dL (33.0-35.0); MEAN CORPUSCULAR VOLUME 92.1 fL (80.0-100.0); MEAN PLATELET VOLUME 10.4 fL (7.4-11.0); MONOCYTES # (AUTO) 0.8 x10^3/uL (0.3-0.8); MONOCYTES % (AUTO) 17.2 % (0.0-13.0); NEUTROPHILS # (AUTO) 2.1 x10^3/uL (2.2-4.8); NEUTROPHILS % (AUTO) 46.7 % (42.0-75.0); PLATELET COUNT 168 X10^3/uL (150.0-450.0); RED BLOOD COUNT 2.85 X10^6/uL (4.7-6.0); RED CELL DISTRIBUTION WIDTH 13.4 % (11.6-16.5); WHITE BLOOD COUNT 4.4 X10^3/uL (3.6-10.0)
[2017-03-20 18:31] VITALS: BP 135/53; BMI 22.3
--- NOTE | 2017-03-20 18:38 | RAD ---
Chest, one view Indication: Chest pain Comparison: March 14, 2017 Findings: There is stable cardiomegaly without congestive failure. Left-sided pacing device is again noted and unchanged. No focal consolidation, effusion or pneumothorax is identified. Osseous thorax i s unremarkable. Impression: No acute chest process. Reported By:
[2017-03-20] MEDS ORDERED: PEPCID 20 MG IV PREMIX* 20 MG/50 ML BAG IV ONE ×2 (18:47→19:39)
[2017-03-20] MEDS ORDERED: ZOFRAN INJ 4 MG VIAL IVP ONE (19:14)
[2017-03-20] MEDS ORDERED: MORPHINE SULFATE INJ 4 MG IVP ONE (19:14)
[2017-03-20 19:22] LABS: ALANINE AMINOTRANSFERASE 15 Units/L (12-78); ALBUMIN 2.7 g/dL (3.4-5.0); ALKALINE PHOSPHATASE 67 Units/L (46-116); ASPARTATE AMINO TRANSFERASE 26 Units/L (15-37); BLOOD UREA NITROGEN 13 mg/dL (7-18); CALCIUM 8.8 mg/dL (8.5-10.1); CARBON DIOXIDE 26.7 mmol/L (21-32); CHLORIDE 110 mmol/L (98-107); CKMB % 2.5 % (<4); COR CA(FOR HYPOALB) 9.8 mg/dL (8.5-10.1); CREATINE KINASE 72 Units/L (39-308); CREATINE KINASE MB 1.8 ng/mL (0-4.0); CREATININE 0.76 mg/dL (0.70-1.30); MAGNESIUM 1.1 mg/dL (1.7-2.9); PHOSPHORUS 4.2 mg/dL (2.6-4.7); SODIUM 145 mmol/L (136-145); TROPONIN I 0.74 ng/mL (0-1.5); eGFR BLACK RACES > 60 (>60); eGFR NON BLACK RACES > 60 (>60)
[2017-03-20] MEDS ORDERED: MORPHINE SULFATE INJ 4 MG ONE (19:40)
[2017-03-20] MEDS ORDERED: ZOFRAN INJ 4 MG VIAL ONE (19:40)
[2017-03-20] MEDS ORDERED: POTASSIUM CHLORIDE LIQ 20 MEQ UDC PO ONE (20:01)
[2017-03-20] MEDS ORDERED: POTASSIUM CHLORIDE LIQ 20 MEQ UDC ONE (20:06)
[2017-03-21] MEDS ORDERED: ASPIRIN PO ONE (18:00)
== END 2017-03-20 23:24 | disposition home or self-care (01) ==
LOC: ER 18:09
DX: R07.82 Intercostal pain (principal); R10.84 Generalized abdominal pain; R60.0 Localized edema
CPT/HCPCS: 36415; 71010; 80053; 82550; 82553; 83735; 83880; 84100; 84484; 85025; 85610; 85730; 93005; 96365; 96374; 96375; 99283; A4222; S0028; J2270; J2405

== ENCOUNTER 2017-03-23 17:44 | Inpatient (IN) | payer OTHER, MEDICAID ==
[2017-03-23] MEDS ORDERED: ASPIRIN PO ONE (17:47)
[2017-03-23] MEDS ORDERED: ASPIRIN ONE (17:49)
[2017-03-23] MEDS: NITROSTAT SL PRN ×2 (17:52→17:59)
[2017-03-23 18:01] LABS: BASOPHILS # (AUTO) 0.1 X10^3/uL (0.0-0.1); BASOPHILS % (AUTO) 1.8 % (0.2-1.0); EOSINOPHILS % (AUTO) 0.1 % (0.9-2.9); HEMATOCRIT 28.6 % (42.0-54.0); HEMOGLOBIN 9.6 g/dL (13.5-18.0); LYMPHOCYTES # (AUTO) 1.9 X10^3/uL (1.3-2.9); LYMPHOCYTES % (AUTO) 37.3 % (21.0-51.0); MEAN CORPUSCULAR HEMOGLOBIN 30.6 pg (27.0-34.0); MEAN CORPUSCULAR HGB CONC 33.5 g/dL (33.0-35.0); MEAN CORPUSCULAR VOLUME 91.4 fL (80.0-100.0); MEAN PLATELET VOLUME 9.3 fL (7.4-11.0); MONOCYTES # (AUTO) 0.7 x10^3/uL (0.3-0.8); MONOCYTES % (AUTO) 14.8 % (0.0-13.0); NEUTROPHILS # (AUTO) 2.3 x10^3/uL (2.2-4.8); PLATELET COUNT 136 X10^3/uL (150.0-450.0); RED BLOOD COUNT 3.13 X10^6/uL (4.7-6.0); RED CELL DISTRIBUTION WIDTH 13.4 % (11.6-16.5)
[2017-03-23 18:24] LABS: BLOOD UREA NITROGEN 13 mg/dL (7-18); CARBON DIOXIDE 26.4 mmol/L (21-32); CHLORIDE 106 mmol/L (98-107); CREATININE 0.94 mg/dL (0.70-1.30); SODIUM 143 mmol/L (136-145); TROPONIN I 0.24 ng/mL (0-1.5); eGFR BLACK RACES > 60 (>60); eGFR NON BLACK RACES > 60 (>60)
[2017-03-23 18:28] LABS: ALANINE AMINOTRANSFERASE 15 Units/L (12-78); ALBUMIN 3.2 g/dL (3.4-5.0); ALKALINE PHOSPHATASE 87 Units/L (46-116); ASPARTATE AMINO TRANSFERASE 25 Units/L (15-37); CKMB % 1.6 % (<4); COR CA(FOR HYPOALB) 9.6 mg/dL (8.5-10.1); CREATINE KINASE 62 Units/L (39-308); CREATINE KINASE MB < 1.0 ng/mL (0-4.0); PHOSPHORUS 4.7 mg/dL (2.6-4.7)
--- NOTE | 2017-03-23 19:13 | RAD ---
HISTORY: Chest pain Study: Single view chest Comparison: 03/20/2017 Findings: Stable dual-chamber pacemaker. The lungs are clear without consolidation, effusion or pneumothorax. S table cardiomegaly. The soft tissues are unremarkable. IMPRESSION: 1. Stable cardiomegaly without acute findings. Reported By:
--- NOTE | 2017-03-23 19:45 | VAS ---
HISTORY: Lower extremity pain, elevated D-dimer Study: Venous Doppler Comparison: None TECHNIQUE: Multiple valdez scale and color flow Doppler images of the deep venous system were obtained of the bilateral lower extremities FINDINGS: There is normal respiratory phasicity, compression and augmentation of the extremity veins without ev idence of acute DVT. IMPRESSION: 1. Negative for DVT. Reported By:
--- NOTE | 2017-03-23 20:32 | DR.GENAD ---
HPI - PCP Primary Care Physician: Carroll - Complaint/Symptoms Chief Complaint Doctors Comments: Patient presents complaint of bilateral leg pain, difficulity in walking for a few days. He also admits to chest pain. Chief Complaint:: "My chest has been hurting since about 7 oclock today. I went to Dr. Hodges and he told me to come to the ER. He said that I was getting fluid buildup." - Source History Provided: Patient - Mode of Arrival Mode of Arrival: Ambulatory - Timing Onset of Chief Complaint: 03/23/17 PMH - PMH Past Medical History: Yes Past Medical History: Angina, Coronary Artery Disease, CVA, Dyslipidemia, GERD, Hypertension Past Surgical History: Yes Surgical History: Cholecystectomy, Other - Family History History of Family Medical Conditions: Yes Family Medical History: Hypertension - Social History Does patient currently use any type of tobacco product: No Have you used tobacco products in the last 12 months: No Type of Tobacco Use: None Does any household member use tobacco: No Alcohol Use: DAILY Do you use any recreational Drugs:: No Lives With: Family Lives Where: Home - infectious screening In the last 2 months have you had wt loss of >10#?: NO Have you had fever, night sweats or hemotysis?: No Have you traveled outside the country in the last 6 months?: No Isolation: Standard ROS - Review of Systems Eyes: No Symptoms Reported ENTM: No Symptoms Reported Respiratoy: No Symptoms Reported Cardiovascular: No Symptoms Reported Gastrointestinal/Abdominal: No Symptoms Reported Genitourinary: No Symptoms Reported Neurological: No Symptoms Reported Musculoskeletal: No Symptoms Reported Integumentary: No Symptoms Reported Hematologic/Lymphatic: No Symptoms Reported Endocrine: No Symptoms Reported Psychiatric: No Symptoms Reported All Other Systems: Reviewed and Negative PE - Vital Signs Vitals: Temperature 98.2 F Pulse Rate [Apical] 88 Pulse Rate 91 Respiratory Rate 22 Blood Pressure [Right Arm] 139/85 Blood Pressure [Left Arm] 148/84 Blood Pressure 154/92 O2 Sat by Pulse Oximetry 100 - General General Appearance: Alert, In No Apparent Distress - Head Head Exam: Normal Inspection, Atraumatic - Eyes Eye exam: Normal Appearance, PERRL, EOMI - ENT ENT Exam: Normal Exam, Normal Oropharynx External Ear Exam: Normal External Inspection TM/Canal Exam: Bilateral Normal Nose Exam: Normal Nose Exam, Sinus Tenderness Mouth Exam: Normal Inspection Throat Exam: Normal Inspection - Neck Neck Exam: Normal Inspection - Chest Chest Inspection: Normal Inspection - Respiratory Respiratory Exam: Normal Lung Sounds Bilat Respiratory Exam: Bilateral Clear to Auscultation - Cardiovascular Cardiovascular Exam: Regular Rate, Normal Rhythm - Abdominal Exam Abdominal Exam: Normal Inspection, Normal Bowel Sounds, Soft Abdominal Tenderness: negative: RUQ, RLQ, LUQ, LLQ, Epigastrium, Suprapubic, Diffuse, Mild, Moderate, Severe, Other - Extremities Extremities Exam: Normal Inspection, Full ROM, Edema (2+pitting), Calf Tenderness - Back Back Exam: Normal Inspection, Full ROM - Neurologic Neurological Exam: Alert, Oriented X3, CN II-XII Intact - Psychiatric Psychiatric Exam: Normal Affect, Normal Mood - Skin Skin Exam: Warm, Dry, Intact, Other (hypopigmented LLE) Course - Reevaluation 1st: Unchanged ROR - Labs Reviewed Result Diagrams: 03/23/17 17:52 03/23/17 17:52 Laboratory: WBC 5.0 X10^3/uL (3.6-10.0) 03/23/17 17:52 RBC 3.13 X10^6/uL (4.7-6.0) L 03/23/17 17:52 Hgb 9.6 g/dL (13.5-18.0) L 03/23/17 17:52 Hct 28.6 % (42.0-54.0) L 03/23/17 17:52 MCV 91.4 fL (80.0-100.0) 03/23/17 17:52 MCH 30.6 pg (27.0-34.0) 03/23/17 17:52 MCHC 33.5 g/dL (33.0-35.0) 03/23/17 17:52 RDW 13.4 % (11.6-16.5) 03/23/17 17:52 Plt Count 136 X10^3/uL (150.0-450.0) L 03/23/17 17:52 MPV 9.3 fL (7.4-11.0) 03/23/17 17:52 Neut % 46.0 % (42.0-75.0) 03/23/17 17:52 Lymph % 37.3 % (21.0-51.0) 03/23/17 17:52 [place] % 14.8 % (0.0-13.0) H 03/23/17 17:52 Eos % 0.1 % (0.9-2.9) L 03/23/17 17:52 Baso % 1.8 % (0.2-1.0) H 03/23/17 17:52 Neut # 2.3 x10^3/uL (2.2-4.8) 03/23/17 17:52 Lymph # 1.9 X10^3/uL (1.3-2.9) 03/23/17 17:52 [place] # 0.7 x10^3/uL (0.3-0.8) 03/23/17 17:52 Eos # 0.0 x10^3/uL (0.0-0.2) 03/23/17 17:52 Baso # 0.1 X10^3/uL (0.0-0.1) 03/23/17 17:52 Absolute Nucleated RBC 0.0 /100WBC 03/23/17 17:52 INR Target Range - 03/23/17 17:52 INR 1.18 (0.8-1.3) 03/23/17 17:52 D-Dimer 2380 ng/mL (0-400) H* 03/23/17 17:52 Sodium 143 mmol/L (136-145) 03/23/17 17:52 Corrected Sodium TNP 03/23/17 17:52 Potassium 3.7 mmol/L (3.5-5.1) 03/23/17 17:52 Chloride 106 mmol/L (98-107) 03/23/17 17:52 Carbon Dioxide 26.4 mmol/L (21-32) 03/23/17 17:52 BUN 13 mg/dL (7-18) 03/23/17 17:52 Creatinine 0.94 mg/dL (0.70-1.30) 03/23/17 17:52 Est GFR (MDRD) Af Amer > 60 (>60) 03/23/17 17:52 Est GFR (MDRD) Non-Af > 60 (>60) 03/23/17 17:52 Glucose 92 mg/dL (65-99) 03/23/17 17:52 Calcium 9.0 mg/dL (8.5-10.1) 03/23/17 17:52 Corrected Calcium 9.6 mg/dL (8.5-10.1) 03/23/17 17:52 Phosphorus 4.7 mg/dL (2.6-4.7) 03/23/17 17:52 Magnesium 1.0 mg/dL (1.7-2.9) L 03/23/17 17:52 Total Bilirubin 0.50 mg/dL (0.2-1.0) 03/23/17 17:52 AST 25 Units/L (15-37) 03/23/17 17:52 ALT 15 Units/L (12-78) 03/23/17 17:52 Alkaline Phosphatase 87 Units/L (46-116) 03/23/17 17:52 Creatine Kinase 62 Units/L (39-308) 03/23/17 17:52 CK-MB (CK-2) < 1.0 ng/mL (0-4.0) 03/23/17 17:52 CK/CKMB % Calc 1.6 % (<4) 03/23/17 17:52 Troponin I 0.24 ng/mL (0-1.5) 03/23/17 17:52 Total Protein 7.0 g/dL (6.4-8.2) 03/23/17 17:52 Albumin 3.2 g/dL (3.4-5.0) L 03/23/17 17:52 Globulin 3.8 g/dL (2.5-4.5) 03/23/17 17:52 Albumin/Globulin Ratio 0.8 Ratio (1.1-2.1) L 03/23/17 17:52 - XRAY XRAY Interpreted by: Radiologist (Chest: stable cardiomegaly without acute findings, Venous Doppler negative for FVT) - Diagnosis Discharge Problem: CHF exacerbation Qualifiers: Congestive heart failure type: systolic Qualified Code(s): I50.23 - Acute on chronic systolic (congestive) heart failure - Discharge Plan Condition: Stable - Follow ups/Referrals Follow ups/Referrals: Roberto Carlos Hodges [Primary Care Provider] - 3 days - Instructions
[2017-03-23] MEDS: ACCUNEB 1.25 MG NEBULE NEB SCH (22:15)
[2017-03-23] MEDS ORDERED: MAGNESIUM SULFATE 1 GM/100 mL PREMIX 2 GM/200 ML BAG IV ONE (22:30)
[2017-03-23] MEDS: MAGNESIUM SULFATE 1 GM/100 mL PREMIX 1 GM/100 ML BAG IV SCH ×2 (22:40→23:41)
[2017-03-23] MEDS: NS 1000 ML 1,000 ML IV SCH (22:41)
[2017-03-24] MEDS ORDERED: ACCUNEB 1.25 MG NEBULE ONE (00:26)
[2017-03-24] MEDS: TYLENOL 325 MG TAB PO PRN ×3 (00:58→20:06)
[2017-03-24 05:20] LABS: BASOPHILS % (AUTO) 0.5 % (0.2-1.0); EOSINOPHILS % (AUTO) 0.2 % (0.9-2.9); HEMATOCRIT 24.8 % (42.0-54.0); HEMOGLOBIN 8.2 g/dL (13.5-18.0); LYMPHOCYTES # (AUTO) 1.3 X10^3/uL (1.3-2.9); LYMPHOCYTES % (AUTO) 42.4 % (21.0-51.0); MEAN CORPUSCULAR HEMOGLOBIN 30.6 pg (27.0-34.0); MEAN CORPUSCULAR HGB CONC 33.2 g/dL (33.0-35.0); MEAN PLATELET VOLUME 10.3 fL (7.4-11.0); MONOCYTES # (AUTO) 0.5 x10^3/uL (0.3-0.8); MONOCYTES % (AUTO) 16.8 % (0.0-13.0); NEUTROPHILS # (AUTO) 1.2 x10^3/uL (2.2-4.8); NEUTROPHILS % (AUTO) 40.1 % (42.0-75.0); PLATELET COUNT 113 X10^3/uL (150.0-450.0); RED BLOOD COUNT 2.69 X10^6/uL (4.7-6.0); RED CELL DISTRIBUTION WIDTH 13.2 % (11.6-16.5)
[2017-03-24 05:32] LABS: ALANINE AMINOTRANSFERASE 11 Units/L (12-78); ALBUMIN 2.6 g/dL (3.4-5.0); ALKALINE PHOSPHATASE 75 Units/L (46-116); ASPARTATE AMINO TRANSFERASE 19 Units/L (15-37); BLOOD UREA NITROGEN 13 mg/dL (7-18); CALCIUM 8.5 mg/dL (8.5-10.1); CARBON DIOXIDE 26.5 mmol/L (21-32); CHLORIDE 108 mmol/L (98-107); COR CA(FOR HYPOALB) 9.6 mg/dL (8.5-10.1); COR NA(FOR HYPERGLY) 144 mmol/L (136-145); CREATININE 0.83 mg/dL (0.70-1.30); MAGNESIUM 1.5 mg/dL (1.7-2.9); SODIUM 144 mmol/L (136-145); TOTAL PROTEIN 5.9 g/dL (6.4-8.2); eGFR BLACK RACES > 60 (>60); eGFR NON BLACK RACES > 60 (>60)
[2017-03-24] MEDS ORDERED: POTASSIUM CHLORIDE LIQ 20 MEQ UDC PO PRN (05:38)
[2017-03-24] MEDS ORDERED: K-RIDER 10 MEQ/NS 100 ML 10 MEQ/100 ML BAG IV PRN (05:38)
[2017-03-24] MEDS ORDERED: K-LYTE EFFERVESCENT PO PRN (05:38)
[2017-03-24] MEDS: ACCUNEB 1.25 MG NEBULE NEB SCH ×3 (05:45→21:10)
[2017-03-24] MEDS: K-DUR TAB 20 MEQ PO PRN ×2 (06:00→08:40)
--- NOTE | 2017-03-24 06:36 | RAD ---
HISTORY: Cough Study: Chest AP portable Comparison: March 23, 2017, March 20, 2017 Findings: There is a pacemaker present on the left partially obscuring the left mid lung. The heart is enlarged . No congestive heart failure is noted. No acute alveolar infiltrates or pleural effusions are identi fied. The bony thorax is unremarkable with the exception of chronic rotator cuff disease on the right . IMPRESSION: Cardiomegaly without congestive heart failure Lungs clear Reported By:
[2017-03-24] MEDS: ZANTAC PO SCH ×2 (08:39→20:07)
[2017-03-24] MEDS: PREVACID PO SCH (08:40)
[2017-03-24] MEDS: MICRO K EXTEN CAP 10 MEQ PO SCH (08:40)
[2017-03-24] MEDS ORDERED: PATIENT'S HOME MEDICATION (Potassium Chloride [Potassium Chloride] 10 MEQ) PO SCH (09:00)
[2017-03-24] MEDS ORDERED: LASIX PO SCH (09:00)
[2017-03-24] MEDS: MAGNESIUM SULFATE 1 GM/100 mL PREMIX 1 GM/100 ML BAG IV SCH ×2 (09:59→11:20)
[2017-03-24] MEDS ORDERED: MAGNESIUM SULFATE 1 GM/100 mL PREMIX 1 GM/100 ML BAG IV SCH (10:00)
[2017-03-24] MEDS: MEGACE PO SCH ×2 (10:02→20:07)
[2017-03-24] MEDS: HEMOCYTE-PLUS PO SCH (10:02)
[2017-03-24] MEDS: NS 1000 ML 1,000 ML IV SCH ×2 (11:33→13:44)
--- NOTE | 2017-03-24 11:34 | DR.H&P ---
H&P - History & Physical for Day of: H&P Date: 03/23/17 - Chief Complaint Chief Complaint: IS A 72 YEAR OLD PATIENT OF OURS WHO PRESENTED TO THE EMERGENCY ROOM WITH COMPLAINTS OF CHEST PAIN, SHORTNESS OF BREATH, BILATERAL LEG PAIN, AND DIFFICULTY WALKING FOR THE PAST FEW DAYS. ON EXAMINATION , PATIENT WAS NOTED WITH BILATERAL LOWER EXTREMITY 2+ PITTING EDEMA. LUNGS WERE NOTED WITH WHEEZING BILATERALLY ON AUSCULTATION. ABDOMEN WAS SOFT, ROUND, AND NON-TENDER WITH BOWEL SOUNDS NOTED NORMAL IN ALL QUADRANTS. ON ARRIVAL TO ER, HIS VITAL SIGNS WERE 98.2-91-18-99%-154/92. CMC, CMP, D-DIMER. CHEST XRAY, EKG, AND VENOUS DOPPLER WERE OBTAINED IN THE ER. ABNORMAL LABS INCLUDE THE FOLLOWING : RBC 3.13, Hgb 9.6, Hct 28.6, Plt Count 136, Ddimer 2380, Magnesium 1.0, Albumin 3.2, A/G Ratio 0.8. CHEST XRAY REPORTED: Stable cardiomegaly without acute findings. EKG REPORTED Atrial sensed ventricular paced rhythm. Heart rate= 88. VENOUS DOPPLER REPORTED Negative for DVT. WE ADMITTED PATIENT FOR FURTHER TREATMENT AND EVALUATION OF CHF. WE WILL FOLLOW UP WITH AM LABS AND CONTINUE TO MONITOR PATIENT. - Allergies Allergies/Adverse Reactions: Allergies Allergy/AdvReac Type Severity Reaction Status Date / Time No Known Drug Allergies Allergy Verified 01/31/17 18:10 - Past Medical History Past Medical History: Angina, Coronary Artery Disease, CVA, Dyslipidemia, GERD, Hypertension Additional Medical History: HIV, HEPATITIS C, PACEMAKER - Past Surgical History Surgical History: Cholecystectomy, Other Additional Surgical History: PACEMAKER - Family History Family Medical History: Hypertension - Social History Does patient currently use any type of tobacco product: No Have you used tobacco products in the last 12 months: No Type of Tobacco Use: None Does any household member use tobacco: No Alcohol Use: Occasionally Drug Use: Prescription Drugs - Medications Home Medications: Albuterol Sulfate [ACCUNEB 1.25 mg NEBULE *] 0.63 mg INH TID 03/23/17 [History Confirmed 03/23/17] - Review of Systems Constitutional: Weakness Eyes: No Symptoms Reported ENT: No Symptoms Reported Respiratory: Shortness of Breath Cardiovascular: Edema (BILATERAL LOWER EXTREMITIES ) Gastrointestinal: No Symptoms Reported Genitourinary: No Symptoms Reported Musculoskeletal: No Symptoms Reported Skin: No Symptoms Reported Neurological: No Symptoms Reported - Physical Exam Vital Signs: Temperature 97.6 F Pulse Rate [Left Brachial] 79 Pulse Rate [Apical] 78 Pulse Rate 88 Respiratory Rate 20 Blood Pressure [Right Arm] 117/56 Blood Pressure [Left Arm] 116/57 Blood Pressure 154/92 O2 Sat by Pulse Oximetry 100 Oriented: Normal Eyes: Normal Ear: Normal Nose: Normal Throat: Normal Respiratory: Wheezes Throughout Cardiovascular: Normal : Normal Auscultation: Bowel Sounds: Normal Palpation: Normal Tenderness: Normal Skin: Normal Musculoskeletal: Normal Psychiatric: Normal Mood Description: Calm Affect: Normal Speech Pattern: Clear - Assessment/Plan (1) CHF exacerbation Qualifiers: Congestive heart failure type: systolic Qualified Code(s): I50.23 - Acute on chronic systolic (congestive) heart failure Status: Acute Plan: ALBUTEROL NEBS TID, LASIX 20MG IV BID, CONTINUE TO MONITOR LABS AND CHEST XRAY
[2017-03-24] MEDS ORDERED: LEVSIN/MAALOX/LIDOC VISC PO PRN (11:47)
[2017-03-24] MEDS: MORPHINE SULFATE INJ 2 MG INJ IVP PRN ×2 (15:15→22:10)
[2017-03-24] MEDS: ZOFRAN INJ 4 MG VIAL IVP PRN (15:16)
[2017-03-24] MEDS ORDERED: LEVSIN/MAALOX/LIDOC VISC ONE (18:17)
[2017-03-24] MEDS: LEVSIN/MAALOX/LIDOC VISC PO SCH (18:25)
[2017-03-24 19:39] LABS: STOOL FOR WBC POSITIVE (NEGATIVE)
[2017-03-24 19:42] LABS: CRYPTOSPORIDIUM PARVUM ANTIGEN NEGATIVE (NEGATIVE); GIARDIA LAMBLIA ANTIGEN NEGATIVE (NEGATIVE)
[2017-03-24] MEDS: LASIX IVP SCH (20:06)
[2017-03-24] MEDS: CIPRO IV 400 MG PREMIX* 400 MG/200 ML IV.SOLN. IV SCH (20:51)
[2017-03-25] MEDS: LEVSIN/MAALOX/LIDOC VISC PO SCH ×5 (01:28→23:48)
[2017-03-25] MEDS: NS 1000 ML 1,000 ML IV SCH ×3 (03:19→15:46)
[2017-03-25] MEDS: ZOFRAN INJ 4 MG VIAL IVP PRN ×2 (03:30→15:46)
[2017-03-25] MEDS: MORPHINE SULFATE INJ 2 MG INJ IVP PRN ×3 (03:30→23:49)
[2017-03-25] MEDS: ACCUNEB 1.25 MG NEBULE NEB SCH ×3 (05:25→21:02)
[2017-03-25 05:38] LABS: ALANINE AMINOTRANSFERASE 13 Units/L (12-78); ALBUMIN 2.5 g/dL (3.4-5.0); ALKALINE PHOSPHATASE 77 Units/L (46-116); ASPARTATE AMINO TRANSFERASE 18 Units/L (15-37); BLOOD UREA NITROGEN 10 mg/dL (7-18); CALCIUM 8.5 mg/dL (8.5-10.1); CARBON DIOXIDE 24.7 mmol/L (21-32); CHLORIDE 110 mmol/L (98-107); COR CA(FOR HYPOALB) 9.7 mg/dL (8.5-10.1); MAGNESIUM 1.5 mg/dL (1.7-2.9); SODIUM 143 mmol/L (136-145); TOTAL PROTEIN 5.7 g/dL (6.4-8.2); eGFR BLACK RACES > 60 (>60); eGFR NON BLACK RACES > 60 (>60)
[2017-03-25 05:47] LABS: BASOPHILS % (AUTO) 0.4 % (0.2-1.0); EOSINOPHILS % (AUTO) 0.4 % (0.9-2.9); HEMATOCRIT 25.4 % (42.0-54.0); HEMOGLOBIN 8.5 g/dL (13.5-18.0); LYMPHOCYTES % (AUTO) 25.6 % (21.0-51.0); MEAN CORPUSCULAR HEMOGLOBIN 30.8 pg (27.0-34.0); MEAN CORPUSCULAR HGB CONC 33.3 g/dL (33.0-35.0); MEAN CORPUSCULAR VOLUME 92.4 fL (80.0-100.0); MEAN PLATELET VOLUME 10.7 fL (7.4-11.0); MONOCYTES # (AUTO) 0.3 x10^3/uL (0.3-0.8); MONOCYTES % (AUTO) 6.9 % (0.0-13.0); NEUTROPHILS # (AUTO) 2.5 x10^3/uL (2.2-4.8); NEUTROPHILS % (AUTO) 66.7 % (42.0-75.0); PLATELET COUNT 108 X10^3/uL (150.0-450.0); RED BLOOD COUNT 2.75 X10^6/uL (4.7-6.0); RED CELL DISTRIBUTION WIDTH 13.3 % (11.6-16.5); WHITE BLOOD COUNT 3.7 X10^3/uL (3.6-10.0)
[2017-03-25 07:20] VITALS: BMI 20.3
--- NOTE | 2017-03-25 07:53 | RAD ---
HISTORY: Shortness of breath, congestive heart failure Study: Chest AP portable Comparison: March 24, 2017 Findings: There is a pacemaker present on the left obscuring a portion of the left mid lung. The heart remains enlarged. No congestive heart failure is noted. No acute alveolar infiltrates or pleural effusions ar e identified. The bony thorax is unremarkable with the exception of chronic rotator cuff disease on t he right. IMPRESSION: Cardiomegaly without congestive heart failure Lungs clear Reported By:
[2017-03-25] MEDS: CIPRO IV 400 MG PREMIX* 400 MG/200 ML IV.SOLN. IV SCH ×2 (08:37→21:24)
[2017-03-25] MEDS: MICRO K EXTEN CAP 10 MEQ PO SCH (08:38)
[2017-03-25] MEDS: HEMOCYTE-PLUS PO SCH (08:38)
[2017-03-25] MEDS: LASIX IVP SCH ×2 (08:38→21:25)
[2017-03-25] MEDS: MEGACE PO SCH ×2 (08:38→21:25)
[2017-03-25] MEDS: PREVACID PO SCH (08:38)
[2017-03-25] MEDS: ZANTAC PO SCH ×2 (08:39→21:25)
[2017-03-25] MEDS: ALBUMIN HUMAN 25%- 100ML 100 ML IV SCH ×2 (09:00→09:10)
[2017-03-25] MEDS: MAGNESIUM SULFATE 1 GM/100 mL PREMIX 1 GM/100 ML BAG IV SCH ×2 (09:01→10:22)
--- NOTE | 2017-03-25 13:18 | PCM.PROG ---
Progress Note - Progress Note for Day of Date: 03/24/17 - Subjective Subjective: WAS ADMITTED FOR CHF. HE IS ALERT AND ORIENTED, SITTING UP ON SIDE OF BED ON MORNING ROUNDS EATING BREAKFAST. PATIENT STATES THAT HE DOESN'T HAVE MUCH OF AN APPETITE. TODAY, HE CONTINUES WITH COMPLAINTS OF BILATERAL LEG PAIN AND SHORTNESS OF BREATH. HE IS ALSO NOTED WITH NEW COMPLAINTS OF ABDOMINAL PAIN AND DIARRHEA. ON EXAMINATION, HE IS NOTED WITH WHEEZING BILATERALLY TO AUSCULTATION. ABDOMEN IS SOFT, FLAT, AND TENDER. NORMAL BOWEL SOUNDS NOTED IN ALL QUADRANTS. BILATERAL LOWER EXTREMITIES ARE NOTED WITH 2+[place]. HIS VITAL SIGNS THIS MORNING ARE 97.6-79-20-100%-116/57. A CBC, CMP, AND CHEST XRAY WERE OBTAINED. ABNORMAL LAB VALUES INCLUDE THE FOLLOWING: WBC 3.0 , RBC 2.69, HGB 8.2, HCT 24.8, POTASSIUM 3.1, CHLORIDE 108, GLUCOSE 118, ALT 11 , TOTAL PROTEIN 5.9, ALBUMIN 2.6, MAGNESIUM 1.5. CHEST XRAY REPORTED CARDIOMEGALY, LUNGS CLEAR. PATIENT LIVES WITH HIS SISTER. PATIENT'S SISTER STATES THAT IT IS BECOMING DIFFICULT FOR HER TO CARE FOR PATIENT AT HOME DUE TO PATIENT'S INSTABILITY AND WEAKNESS. WE WILL DISCUSS PLACEMENT AT [facility] FOR [facility]PA[facility] CARE WITH CASE MANAGEMENT. WE PLAN TO START MAGNESIUM SULFATE 2 GM IV X 1, HEMOCYTE PLUS DAILY, AND MEGACE 40MG BID, GI COCKTAIL 30ML PO QID, AND CHECK A H -PYLORI AND STOOL STUDIES. WE PLAN TO FOLLOW UP WITH AM LABS AND CONTINUE TO MONITOR PATIENT. - Past Medical Family Social History Past Med/Fam/Surg Hx: No changes since H&P Allergies: Allergies No Known Drug Allergies Allergy (Verified 01/31/17 18:10) - Review of Systems ROS: No change since H&P - Vital Signs and I&O's Vital Signs: Temperature 97.9 F Pulse Rate [Left Brachial] 90 Pulse Rate [Apical] 78 Pulse Rate 71 Respiratory Rate 20 Blood Pressure [Right Arm] 131/67 Blood Pressure [Left Arm] 140/65 Blood Pressure 154/92 O2 Sat by Pulse Oximetry 98 Intake and Output: Intake & Output 03/23/17 03/24/17 03/25/17 03/26/17 11:59 11:59 11:59 11:59 Intake Total 1160 2482 Output Total 100 Balance 1160 2382 - Physical Exam Oriented: Normal Eyes: Normal Ear: Normal Nose: Normal Throat: Normal Respiratory: Generalized, Wheezes Cardiovascular: Normal : Normal Auscultation: Bowel Sounds: Normal Palpation: Normal Tenderness: Diffuse Skin: Normal Musculoskeletal: Normal, Instability Psychiatric: Normal Mood Description: Calm Affect: Normal Speech Pattern: Clear, Appropriate - Laboratory and Diagnostics Result Diagrams: 03/25/17 04:40 03/25/17 04:40 Labs: 03/24/17 18:25 Stool Stool Culture - Preliminary 03/24/17 18:25 Stool - Final Laboratory WBC 3.7 X10^3/uL (3.6-10.0) 03/25/17 04:40 RBC 2.75 X10^6/uL (4.7-6.0) L 03/25/17 04:40 Hgb 8.5 g/dL (13.5-18.0) L 03/25/17 04:40 Hct 25.4 % (42.0-54.0) L 03/25/17 04:40 MCV 92.4 fL (80.0-100.0) 03/25/17 04:40 MCH 30.8 pg (27.0-34.0) 03/25/17 04:40 MCHC 33.3 g/dL (33.0-35.0) 03/25/17 04:40 RDW 13.3 % (11.6-16.5) 03/25/17 04:40 Plt Count 108 X10^3/uL (150.0-450.0) L 03/25/17 04:40 MPV 10.7 fL (7.4-11.0) 03/25/17 04:40 Neut % 66.7 % (42.0-75.0) 03/25/17 04:40 Lymph % 25.6 % (21.0-51.0) 03/25/17 04:40 [place] % 6.9 % (0.0-13.0) 03/25/17 04:40 Eos % 0.4 % (0.9-2.9) L 03/25/17 04:40 Baso % 0.4 % (0.2-1.0) 03/25/17 04:40 Neut # 2.5 x10^3/uL (2.2-4.8) 03/25/17 04:40 Lymph # 1.0 X10^3/uL (1.3-2.9) L 03/25/17 04:40 [place] # 0.3 x10^3/uL (0.3-0.8) 03/25/17 04:40 Eos # 0.0 x10^3/uL (0.0-0.2) 03/25/17 04:40 Baso # 0.0 X10^3/uL (0.0-0.1) 03/25/17 04:40 Absolute Nucleated RBC 0.0 /100WBC 03/25/17 04:40 INR Target Range - 03/23/17 17:52 INR 1.18 (0.8-1.3) 03/23/17 17:52 D-Dimer 2380 ng/mL (0-400) H* 03/23/17 17:52 Sodium 143 mmol/L (136-145) 03/25/17 04:40 Corrected Sodium TNP 03/25/17 04:40 Potassium 4.0 mmol/L (3.5-5.1) 03/25/17 04:40 Chloride 110 mmol/L (98-107) H 03/25/17 04:40 Carbon Dioxide 24.7 mmol/L (21-32) 03/25/17 04:40 BUN 10 mg/dL (7-18) 03/25/17 04:40 Creatinine 0.80 mg/dL (0.70-1.30) 03/25/17 04:40 Est GFR (MDRD) Af Amer > 60 (>60) 03/25/17 04:40 Est GFR (MDRD) Non-Af > 60 (>60) 03/25/17 04:40 Glucose 103 mg/dL (65-99) H 03/25/17 04:40 Calcium 8.5 mg/dL (8.5-10.1) 03/25/17 04:40 Corrected Calcium 9.7 mg/dL (8.5-10.1) 03/25/17 04:40 Phosphorus 4.7 mg/dL (2.6-4.7) 03/23/17 17:52 Magnesium 1.5 mg/dL (1.7-2.9) L 03/25/17 04:40 Total Bilirubin 0.40 mg/dL (0.2-1.0) 03/25/17 04:40 AST 18 Units/L (15-37) 03/25/17 04:40 ALT 13 Units/L (12-78) 03/25/17 04:40 Alkaline Phosphatase 77 Units/L (46-116) 03/25/17 04:40 Creatine Kinase 62 Units/L (39-308) 03/23/17 17:52 CK-MB (CK-2) < 1.0 ng/mL (0-4.0) 03/23/17 17:52 CK/CKMB % Calc 1.6 % (<4) 03/23/17 17:52 Troponin I 0.24 ng/mL (0-1.5) 03/23/17 17:52 Total Protein 5.7 g/dL (6.4-8.2) L 03/25/17 04:40 Albumin 2.5 g/dL (3.4-5.0) L 03/25/17 04:40 Globulin 3.2 g/dL (2.5-4.5) 03/25/17 04:40 Albumin/Globulin Ratio 0.8 Ratio (1.1-2.1) L 03/25/17 04:40 Stool Description 175g, dark green, 03/24/17 18:25 Stl Occult Blood (IFOB) Negative (NEGATIVE) 03/24/17 18:25 Stool for White Cells Positive (NEGATIVE) A 03/24/17 18:25 Stl C. diff Tox B Gene Negative (NEGATIVE) 03/24/17 18:25 Stl C. diff 027-NAP1-BI Negative (NEGATIVE) 03/24/17 18:25 Cryptosporid parvum Ag Negative (NEGATIVE) 03/24/17 18:25 E. histolytica Antigen Negative (NEGATIVE) 03/24/17 18:25 Giardia lamblia Ag Negative (NEGATIVE) 03/24/17 18:25 H. pylori IgG Antibody Negative (NEGATIVE) 03/24/17 06:00 - Plan (1) CHF exacerbation Status: Acute Qualifiers: Congestive heart failure type: systolic Qualified Code(s): I50.23 - Acute on chronic systolic (congestive) heart failure Plan: ALBUTEROL NEB TX TID, LASIX 20MG IV BID, CONTINUE TO MONITOR LABS AND CHEST XRAY (2) Abdominal pain Status: Acute Qualifiers: Abdominal location: generalized Qualified Code(s): R10.84 - Generalized abdominal pain (3) Anemia Status: Acute Qualifiers: Anemia type: iron deficiency Qualified Code(s): D64.9 - Anemia, unspecified Plan: HEMOCYTE PLUS, CONTINUE TO MONITOR (4) Decreased appetite Status: Acute Plan: MEGACE 40MG PO BID, CONTINUE TO MONITOR (5) Hypokalemia Status: Acute Plan: POTASSIUM PROTOCOL, CONTINUE TO MONITOR (6) Hypomagnesemia Status: Acute Plan: MAGNESIUM SULFATE 2GM IV X 1, CONTINUE TO MONITOR
[2017-03-25] MEDS: TYLENOL 325 MG TAB PO PRN (14:22)
--- NOTE | 2017-03-25 21:34 | PCM.PROG ---
Progress Note - Progress Note for Day of Date: 03/25/17 - Subjective Subjective: WAS ADMITTED FOR CHF. HE IS ALERT AND ORIENTED, LYING IN BED ON MORNING ROUNDS. TODAY, PATIENT CONTINUES WITH COMPLAINTS OF SHORTNESS OF BREATH, WEAKNESS, ABDOMINAL PAIN, AND LOOSE STOOLS. ON EXAMINATION, CONTINUES WITH WHEEZING BILATERALLY TO AUSCULTATION. ABDOMEN IS SOFT, FLAT, AND TENDER. HYPERACTIVE BOWEL SOUNDS NOTED IN ALL QUADRANTS. SWELLING TO BILATERAL LOWER EXTREMITIES APPEARS TO HAVE DECREASED SOME. HIS VITAL SIGNS THIS MORNING ARE 98.7-85-20-100%-134/61. A CBC, CMP, AND CHEST XRAY WERE OBTAINED. ABNORMAL LAB VALUES INCLUDE THE FOLLOWING: RBC 2.75, HGB 8.5, HCT 25.4, CHLORIDE 110, GLUCOSE 103, TOTAL PROTEIN 5.7, ALBUMIN 2.5, MAGNESIUM 1.5. CHEST XRAY REPORTED CARDIOMEGALY, LUNGS CLEAR. WE OBTAINED A STOOL SAMPLE. STOOL WAS POSITIVE FOR WBC. H-PYLORI NEGATIVE. CASE MANAGEMENT IS ARRANGING PLACEMENT FOR [facility] CARE. WE PLAN TO ADMINISTER MAGNESIUM SULFATE 2 GM IV X 1, ALBUMIN 25 % DAILY, AND START CIPRO 400MG IV Q12H. WE PLAN TO FOLLOW UP WITH AM LABS AND CONTINUE TO MONITOR PATIENT. - Past Medical Family Social History Past Med/Fam/Surg Hx: No changes since H&P Allergies: Allergies No Known Drug Allergies Allergy (Verified 01/31/17 18:10) - Review of Systems ROS: No change since H&P - Vital Signs and I&O's Vital Signs: Temperature 98.4 F Pulse Rate [Left Brachial] 86 Pulse Rate [Apical] 78 Pulse Rate 94 Respiratory Rate 20 Blood Pressure [Right Arm] 133/75 Blood Pressure [Left Arm] 140/65 Blood Pressure 154/92 O2 Sat by Pulse Oximetry 100 Intake and Output: Intake & Output 03/23/17 03/24/17 03/25/17 03/26/17 11:59 11:59 11:59 11:59 Intake Total 1160 2482 820 Output Total 100 450 Balance 1160 2382 370 - Physical Exam Oriented: Normal Eyes: Normal Ear: Normal Nose: Normal Throat: Normal Respiratory: Generalized, Wheezes Cardiovascular: Normal : Normal Auscultation: Bowel Sounds: Normal Palpation: Normal Tenderness: Diffuse Skin: Normal Musculoskeletal: Normal, Instability Psychiatric: Normal Mood Description: Calm Affect: Normal Speech Pattern: Clear, Appropriate - Laboratory and Diagnostics Result Diagrams: 03/25/17 04:40 03/25/17 04:40 Labs: 03/24/17 18:25 Stool Stool Culture - Preliminary 03/24/17 18:25 Stool - Final Laboratory WBC 3.7 X10^3/uL (3.6-10.0) 03/25/17 04:40 RBC 2.75 X10^6/uL (4.7-6.0) L 03/25/17 04:40 Hgb 8.5 g/dL (13.5-18.0) L 03/25/17 04:40 Hct 25.4 % (42.0-54.0) L 03/25/17 04:40 MCV 92.4 fL (80.0-100.0) 03/25/17 04:40 MCH 30.8 pg (27.0-34.0) 03/25/17 04:40 MCHC 33.3 g/dL (33.0-35.0) 03/25/17 04:40 RDW 13.3 % (11.6-16.5) 03/25/17 04:40 Plt Count 108 X10^3/uL (150.0-450.0) L 03/25/17 04:40 MPV 10.7 fL (7.4-11.0) 03/25/17 04:40 Neut % 66.7 % (42.0-75.0) 03/25/17 04:40 Lymph % 25.6 % (21.0-51.0) 03/25/17 04:40 [place] % 6.9 % (0.0-13.0) 03/25/17 04:40 Eos % 0.4 % (0.9-2.9) L 03/25/17 04:40 Baso % 0.4 % (0.2-1.0) 03/25/17 04:40 Neut # 2.5 x10^3/uL (2.2-4.8) 03/25/17 04:40 Lymph # 1.0 X10^3/uL (1.3-2.9) L 03/25/17 04:40 [place] # 0.3 x10^3/uL (0.3-0.8) 03/25/17 04:40 Eos # 0.0 x10^3/uL (0.0-0.2) 03/25/17 04:40 Baso # 0.0 X10^3/uL (0.0-0.1) 03/25/17 04:40 Absolute Nucleated RBC 0.0 /100WBC 03/25/17 04:40 INR Target Range - 03/23/17 17:52 INR 1.18 (0.8-1.3) 03/23/17 17:52 D-Dimer 2380 ng/mL (0-400) H* 03/23/17 17:52 Sodium 143 mmol/L (136-145) 03/25/17 04:40 Corrected Sodium TNP 03/25/17 04:40 Potassium 4.0 mmol/L (3.5-5.1) 03/25/17 04:40 Chloride 110 mmol/L (98-107) H 03/25/17 04:40 Carbon Dioxide 24.7 mmol/L (21-32) 03/25/17 04:40 BUN 10 mg/dL (7-18) 03/25/17 04:40 Creatinine 0.80 mg/dL (0.70-1.30) 03/25/17 04:40 Est GFR (MDRD) Af Amer > 60 (>60) 03/25/17 04:40 Est GFR (MDRD) Non-Af > 60 (>60) 03/25/17 04:40 Glucose 103 mg/dL (65-99) H 03/25/17 04:40 Calcium 8.5 mg/dL (8.5-10.1) 03/25/17 04:40 Corrected Calcium 9.7 mg/dL (8.5-10.1) 03/25/17 04:40 Phosphorus 4.7 mg/dL (2.6-4.7) 03/23/17 17:52 Magnesium 1.5 mg/dL (1.7-2.9) L 03/25/17 04:40 Total Bilirubin 0.40 mg/dL (0.2-1.0) 03/25/17 04:40 AST 18 Units/L (15-37) 03/25/17 04:40 ALT 13 Units/L (12-78) 03/25/17 04:40 Alkaline Phosphatase 77 Units/L (46-116) 03/25/17 04:40 Creatine Kinase 62 Units/L (39-308) 03/23/17 17:52 CK-MB (CK-2) < 1.0 ng/mL (0-4.0) 03/23/17 17:52 CK/CKMB % Calc 1.6 % (<4) 03/23/17 17:52 Troponin I 0.24 ng/mL (0-1.5) 03/23/17 17:52 Total Protein 5.7 g/dL (6.4-8.2) L 03/25/17 04:40 Albumin 2.5 g/dL (3.4-5.0) L 03/25/17 04:40 Globulin 3.2 g/dL (2.5-4.5) 03/25/17 04:40 Albumin/Globulin Ratio 0.8 Ratio (1.1-2.1) L 03/25/17 04:40 Stool Description 175g, dark green, 03/24/17 18:25 Stl Occult Blood (IFOB) Negative (NEGATIVE) 03/24/17 18:25 Stool for White Cells Positive (NEGATIVE) A 03/24/17 18:25 Stl C. diff Tox B Gene Negative (NEGATIVE) 03/24/17 18:25 Stl C. diff 027-NAP1-BI Negative (NEGATIVE) 03/24/17 18:25 Cryptosporid parvum Ag Negative (NEGATIVE) 03/24/17 18:25 E. histolytica Antigen Negative (NEGATIVE) 03/24/17 18:25 Giardia lamblia Ag Negative (NEGATIVE) 03/24/17 18:25 H. pylori IgG Antibody Negative (NEGATIVE) 03/24/17 06:00 - Plan (1) CHF exacerbation Status: Acute Qualifiers: Congestive heart failure type: systolic Qualified Code(s): I50.23 - Acute on chronic systolic (congestive) heart failure Plan: ALBUTEROL NEB TX TID, LASIX 20MG IV BID, CONTINUE TO MONITOR LABS AND CHEST XRAY (2) Abdominal pain Status: Acute Qualifiers: Abdominal location: generalized Qualified Code(s): R10.84 - Generalized abdominal pain (3) Anemia Status: Acute Qualifiers: Anemia type: iron deficiency Qualified Code(s): D64.9 - Anemia, unspecified Plan: HEMOCYTE PLUS, CONTINUE TO MONITOR (4) Decreased appetite Status: Acute Plan: MEGACE 40MG PO BID, CONTINUE TO MONITOR (5) Hypokalemia Status: Acute Plan: POTASSIUM PROTOCOL, CONTINUE TO MONITOR (6) Hypomagnesemia Status: Acute Plan: MAGNESIUM SULFATE 2GM IV X 1, CONTINUE TO MONITOR
[2017-03-26] MEDS: MORPHINE SULFATE INJ 2 MG INJ IVP PRN (04:08)
[2017-03-26] MEDS: NS 1000 ML 1,000 ML IV SCH ×2 (04:09→15:56)
[2017-03-26] MEDS: LEVSIN/MAALOX/LIDOC VISC PO SCH ×3 (05:39→17:01)
[2017-03-26] MEDS: ACCUNEB 1.25 MG NEBULE NEB SCH ×3 (05:43→21:23)
[2017-03-26 05:47] LABS: ALANINE AMINOTRANSFERASE 12 Units/L (12-78); ALBUMIN 2.8 g/dL (3.4-5.0); ALKALINE PHOSPHATASE 79 Units/L (46-116); ASPARTATE AMINO TRANSFERASE 20 Units/L (15-37); BLOOD UREA NITROGEN 9 mg/dL (7-18); CALCIUM 8.9 mg/dL (8.5-10.1); CARBON DIOXIDE 23.7 mmol/L (21-32); CHLORIDE 107 mmol/L (98-107); COR CA(FOR HYPOALB) 9.9 mg/dL (8.5-10.1); CREATININE 0.79 mg/dL (0.70-1.30); SODIUM 141 mmol/L (136-145); TOTAL PROTEIN 6.1 g/dL (6.4-8.2); eGFR BLACK RACES > 60 (>60); eGFR NON BLACK RACES > 60 (>60)
[2017-03-26 07:10] LABS: BASOPHILS % (AUTO) 0.9 % (0.2-1.0); EOSINOPHILS # (AUTO) 0.1 x10^3/uL (0.0-0.2); EOSINOPHILS % (AUTO) 1.7 % (0.9-2.9); HEMATOCRIT 24.3 % (42.0-54.0); HEMOGLOBIN 8.2 g/dL (13.5-18.0); LYMPHOCYTES # (AUTO) 1.4 X10^3/uL (1.3-2.9); LYMPHOCYTES % (AUTO) 40.8 % (21.0-51.0); MEAN CORPUSCULAR HEMOGLOBIN 30.7 pg (27.0-34.0); MEAN CORPUSCULAR HGB CONC 33.8 g/dL (33.0-35.0); MONOCYTES # (AUTO) 0.5 x10^3/uL (0.3-0.8); MONOCYTES % (AUTO) 13.8 % (0.0-13.0); NEUTROPHILS # (AUTO) 1.5 x10^3/uL (2.2-4.8); NEUTROPHILS % (AUTO) 42.8 % (42.0-75.0); PLATELET COUNT 100 X10^3/uL (150.0-450.0); RED BLOOD COUNT 2.67 X10^6/uL (4.7-6.0); RED CELL DISTRIBUTION WIDTH 13.1 % (11.6-16.5); WHITE BLOOD COUNT 3.5 X10^3/uL (3.6-10.0)
[2017-03-26 07:36] LABS: PLATELET MORPHOLOGY COMMENT NORMAL (NORMAL)
[2017-03-26] MEDS ORDERED: LASIX IVP SCH (08:00)
[2017-03-26] MEDS: CIPRO IV 400 MG PREMIX* 400 MG/200 ML IV.SOLN. IV SCH ×2 (08:07→20:41)
[2017-03-26] MEDS: ALBUMIN HUMAN 25%- 100ML 100 ML IV SCH (08:11)
[2017-03-26] MEDS: ZANTAC PO SCH ×2 (08:19→20:41)
[2017-03-26] MEDS: PREVACID PO SCH (08:19)
[2017-03-26] MEDS: MEGACE PO SCH ×2 (08:19→20:41)
[2017-03-26] MEDS: MICRO K EXTEN CAP 10 MEQ PO SCH (08:19)
[2017-03-26] MEDS: HEMOCYTE-PLUS PO SCH (08:19)
[2017-03-26] MEDS: VOLTAREN 1 % GEL MULTI DOSE TUBE TOP SCH ×4 (10:55→22:05)
[2017-03-26] MEDS: ALDACTONE TAB 25 MG PO SCH (10:56)
[2017-03-26] MEDS: ZESTRIL TAB 5 MG PO SCH (10:56)
[2017-03-26] MEDS: MAGNESIUM SULFATE 1 GM/100 mL PREMIX 1 GM/100 ML BAG IV SCH ×2 (10:57→14:32)
--- NOTE | 2017-03-26 10:59 | RAD ---
HISTORY: Abdominal pain Study: Acute abdominal series Comparison: No Findings: The trachea is midline. The cardiac silhouette is enlarged. No congestive heart failure is noted.. The lungs are clear without focal infiltrate or effusion. The bony thorax is unremarkable. There is a pacemaker present on the left. Flat plate and upright evaluation of the abdomen demonstrates a nonspecific, nonobstructive bowel gas pattern. No pneumoperitoneum is identified. There is a moderately large amount of stool in the left colon.. No pathological soft tissue mass or calcification can be observed. The bony structures are grossly intact. IMPRESSION: 1. Cardiomegaly without congestive heart failure 2. No evidence for acute abdominal pathology identified. Reported By:
[2017-03-26] MEDS ORDERED: MILK OF MAGNESIA PO SCH (11:18)
[2017-03-26] MEDS: COLACE CAP 100 MG PO SCH ×2 (11:55→20:41)
[2017-03-26] MEDS: MIRALAX POWDER (1 DOSE 17GM) PO SCH ×2 (11:55→20:41)
[2017-03-26] MEDS: MAG-OX TAB PO SCH (11:55)
[2017-03-26] MEDS: MILK OF MAGNESIA PO SCH ×3 (14:19→20:41)
[2017-03-26] MEDS ORDERED: ACCUNEB 1.25 MG NEBULE ONE (20:46)
[2017-03-27] MEDS: LEVSIN/MAALOX/LIDOC VISC PO SCH ×4 (00:48→17:42)
[2017-03-27] MEDS: TYLENOL 325 MG TAB PO PRN ×2 (02:42→23:10)
[2017-03-27] MEDS: NS 1000 ML 1,000 ML IV SCH (05:30)
[2017-03-27] MEDS: ACCUNEB 1.25 MG NEBULE NEB SCH ×3 (05:32→21:31)
[2017-03-27] MEDS: VOLTAREN 1 % GEL MULTI DOSE TUBE TOP SCH ×3 (05:46→22:53)
[2017-03-27] MEDS: MAG-OX TAB PO SCH (06:01)
[2017-03-27 06:27] LABS: BASOPHILS % (AUTO) 0.7 % (0.2-1.0); EOSINOPHILS % (AUTO) 1.3 % (0.9-2.9); HEMATOCRIT 24.5 % (42.0-54.0); HEMOGLOBIN 8.1 g/dL (13.5-18.0); LYMPHOCYTES # (AUTO) 1.4 X10^3/uL (1.3-2.9); LYMPHOCYTES % (AUTO) 38.2 % (21.0-51.0); MEAN CORPUSCULAR HEMOGLOBIN 30.1 pg (27.0-34.0); MEAN CORPUSCULAR VOLUME 91.1 fL (80.0-100.0); MEAN PLATELET VOLUME 10.8 fL (7.4-11.0); MONOCYTES # (AUTO) 0.5 x10^3/uL (0.3-0.8); MONOCYTES % (AUTO) 13.9 % (0.0-13.0); NEUTROPHILS # (AUTO) 1.7 x10^3/uL (2.2-4.8); NEUTROPHILS % (AUTO) 45.9 % (42.0-75.0); PLATELET COUNT 98 X10^3/uL (150.0-450.0); RED BLOOD COUNT 2.69 X10^6/uL (4.7-6.0); RED CELL DISTRIBUTION WIDTH 13.2 % (11.6-16.5); WHITE BLOOD COUNT 3.6 X10^3/uL (3.6-10.0)
[2017-03-27 07:02] LABS: ANISOCYTOSIS 1+; HYPOCHROMASIA 1+; PLATELET MORPHOLOGY COMMENT NORMAL (NORMAL); POIKILOCYTOSIS 1+
[2017-03-27 07:10] LABS: ALANINE AMINOTRANSFERASE 12 Units/L (12-78); ALBUMIN 2.9 g/dL (3.4-5.0); ALKALINE PHOSPHATASE 78 Units/L (46-116); ASPARTATE AMINO TRANSFERASE 20 Units/L (15-37); BLOOD UREA NITROGEN 7 mg/dL (7-18); CALCIUM 9.1 mg/dL (8.5-10.1); CARBON DIOXIDE 24.4 mmol/L (21-32); CHLORIDE 106 mmol/L (98-107); CREATININE 0.79 mg/dL (0.70-1.30); MAGNESIUM 1.6 mg/dL (1.7-2.9); SODIUM 139 mmol/L (136-145); TOTAL PROTEIN 5.9 g/dL (6.4-8.2); eGFR BLACK RACES > 60 (>60); eGFR NON BLACK RACES > 60 (>60)
[2017-03-27] MEDS ORDERED: MILK OF MAGNESIA PO PRN (07:40)
[2017-03-27] MEDS ORDERED: MAGNESIUM SULFATE 1 GM/100 mL PREMIX 1 GM/100 ML BAG IV SCH (08:00)
[2017-03-27] MEDS: ALBUMIN HUMAN 25%- 100ML 100 ML IV SCH (09:47)
[2017-03-27] MEDS ORDERED: NS 100 ML IV 100 ML IV ONE (14:00)
--- NOTE | 2017-03-27 16:47 | CT ---
CT abdomen and pelvis with contrast Indication: Abdominal pain Technique: Helical images through the abdomen and pelvis after IV contrast. Coronal and sagittal refo rmats provided. Findings: Limited images through lower chest show marked cardiomegaly pacemaker leads bilateral effus ions larger on the right. There is dependent atelectasis. Review of bone windows demonstrates no dest ructive osseous lesion, with spine and pelvis degenerative changes noted. Abdomen: Gallbladder is absent. The liver, spleen, adrenal glands and pancreas show no acute abnormal ity. Stomach and small bowel are normal. Appendix is normal. There is wall thickening of the cecum an d rectum with perirectal stranding and presacral edema. Mild stranding in the right lower quadrant is also noted. Kidneys are normal with right renal cyst seen. Vascular plaque is minimal. Pelvis: Urinary bladder is normal. Rectal wall thickening noted. Prostate gland appears normal. Diffu se anasarca noted. Impression: 1. Cardiomegaly and pleural effusions. Body wall anasarca. Correlate clinically for volume overload. 2. Rectal wall thickening and cecal wall thickening. Multi focal colitis is possible. This could be i nflammatory or infectious. Minimal vascular plaque is noted but correlate clinically to exclude ische derrick. 3. Spine degenerative change in other incidental findings as above. Reported By:
[2017-03-27] MEDS: ZANTAC PO SCH ×2 (17:29→20:53)
[2017-03-27] MEDS: CIPRO TAB 500 MG PO SCH ×2 (17:30→20:53)
[2017-03-27] MEDS: MEGACE PO SCH ×2 (17:30→20:52)
[2017-03-27] MEDS: ZESTRIL TAB 5 MG PO SCH (17:41)
[2017-03-27] MEDS: PREVACID PO SCH (17:42)
[2017-03-27] MEDS: ALDACTONE TAB 25 MG PO SCH (17:42)
[2017-03-27] MEDS: LASIX PO SCH (17:42)
[2017-03-27] MEDS: MICRO K EXTEN CAP 10 MEQ PO SCH (17:42)
[2017-03-27] MEDS: HEMOCYTE-PLUS PO SCH (17:43)
[2017-03-27] MEDS: MIRALAX POWDER (1 DOSE 17GM) PO SCH (20:53)
--- NOTE | 2017-03-27 20:59 | PCM.PROG ---
Progress Note - Progress Note for Day of Date: 03/26/17 - Subjective Subjective: WAS ADMITTED FOR CHF. HE IS ALERT AND ORIENTED, SITTING UP IN BED ON MORNING ROUNDS. TODAY, PATIENT IS NOTED WITH COMPLAINTS OF LEFT SIDE ABDOMINAL PAIN, LEFT LEG PAIN, AND WEAKNESS. HE CONTINUES WITH LOOSE STOOLS. ON EXAMINATION, PATIENT LUNGS ARE NOTED CLEAR BILATERALLY TO AUSCULTATION. ABDOMEN IS SOFT, FLAT, AND TENDER. HYPERACTIVE BOWEL SOUNDS NOTED IN ALL QUADRANTS. SWELLING TO BILATERAL LOWER EXTREMITIES APPEARS TO BE BACK TO PATIENTS BASELINE. HIS VITAL SIGNS THIS MORNING ARE 97.6-66-24-98%-113/59. A CBC, CMP, AND CHEST XRAY WERE OBTAINED. ABNORMAL LAB VALUES INCLUDE THE FOLLOWING: WBC 3.5, RBC 2.67, HGB 8.2, HCT 24.3, TOTAL PROTEIN 6.1, ALBUMIN 2.9 , MAGNESIUM 1.3. CHEST XRAY REPORTED CARDIOMEGALY, LUNGS CLEAR. STAFF REPORTS THAT PATIENT IS COUGHING WHEN HE EATS AND APPEARS TO HAVE DIFFICULTY SWALLOWING. WE WILL CONSULT SPEECH THERAPY FOR AN EVALUATION. WE PLAN TO OBTAIN AN ABDOMINAL SERIES FOR ABDOMINAL PAIN. TODAY, WE PLAN TO INCREASE HEMOCYTE TO 2 TABS DAILY, START VOLTAREN GEL TID FOR THE LEG PAIN, ALDACTONE 25MG DAILY, LISINOPRIL 5MG DAILY, AND ADMINISTER MAGNESIUM SULFATE 2GM IV DAILY. WE WILL SUPPLEMENT WITH PO POTASSIUM AND DECREASE HOME MEDICATION LASIX TO LASIX 40MG PO DAILY. WE PLAN TO FOLLOW UP WITH AM LABS AND CONTINUE TO MONITOR PATIENT. - Past Medical Family Social History Past Med/Fam/Surg Hx: No changes since H&P Allergies: Allergies No Known Drug Allergies Allergy (Verified 01/31/17 18:10) - Review of Systems ROS: No change since H&P - Vital Signs and I&O's Vital Signs: Temperature 98.3 F Pulse Rate [Left Brachial] 92 Pulse Rate [Apical] 78 Pulse Rate 92 Respiratory Rate 20 Blood Pressure [Right Arm] 165/94 Blood Pressure [Left Arm] 123/61 Blood Pressure 154/92 O2 Sat by Pulse Oximetry 100 Intake and Output: Intake & Output 03/25/17 03/26/17 03/27/17 03/28/17 11:59 11:59 11:59 11:59 Intake Total 2482 2300 1470 360 Output Total 100 1375 300 Balance 2382 925 1170 360 - Physical Exam Oriented: Normal Eyes: Normal Ear: Normal Nose: Normal Throat: Normal Respiratory: Normal Cardiovascular: Normal : Normal Auscultation: Bowel Sounds: Normal Palpation: Normal Tenderness: Diffuse Skin: Normal Musculoskeletal: Normal, Instability Psychiatric: Normal Mood Description: Calm Affect: Normal Speech Pattern: Clear, Appropriate - Laboratory and Diagnostics Result Diagrams: 03/27/17 05:50 03/27/17 05:50 Labs: 03/24/17 18:25 Stool Stool Culture - Preliminary 03/24/17 18:25 Stool - Final Laboratory WBC 3.6 X10^3/uL (3.6-10.0) 03/27/17 05:50 RBC 2.69 X10^6/uL (4.7-6.0) L 03/27/17 05:50 Hgb 8.1 g/dL (13.5-18.0) L 03/27/17 05:50 Hct 24.5 % (42.0-54.0) L 03/27/17 05:50 MCV 91.1 fL (80.0-100.0) 03/27/17 05:50 MCH 30.1 pg (27.0-34.0) 03/27/17 05:50 MCHC 33.0 g/dL (33.0-35.0) 03/27/17 05:50 RDW 13.2 % (11.6-16.5) 03/27/17 05:50 Plt Count 98 X10^3/uL (150.0-450.0) L 03/27/17 05:50 Plt Count Comment Decreased (ADEQUATE) 03/27/17 05:50 MPV 10.8 fL (7.4-11.0) 03/27/17 05:50 Neut % 45.9 % (42.0-75.0) 03/27/17 05:50 Lymph % 38.2 % (21.0-51.0) 03/27/17 05:50 [place] % 13.9 % (0.0-13.0) H 03/27/17 05:50 Eos % 1.3 % (0.9-2.9) 03/27/17 05:50 Baso % 0.7 % (0.2-1.0) 03/27/17 05:50 Neut # 1.7 x10^3/uL (2.2-4.8) L 03/27/17 05:50 Lymph # 1.4 X10^3/uL (1.3-2.9) 03/27/17 05:50 [place] # 0.5 x10^3/uL (0.3-0.8) 03/27/17 05:50 Eos # 0.0 x10^3/uL (0.0-0.2) 03/27/17 05:50 Baso # 0.0 X10^3/uL (0.0-0.1) 03/27/17 05:50 Absolute Nucleated RBC 0.5 /100WBC 03/27/17 05:50 Total Counted 100 03/27/17 05:50 Neutrophils % (Manual) 45 % (39-76) 03/27/17 05:50 Lymphocytes % (Manual) 47 % (13-43) H 03/27/17 05:50 Monocytes % (Manual) 7 % (4-9) 03/27/17 05:50 Eosinophils % (Manual) 1 % (0-6) 03/27/17 05:50 Plt Morphology Comment Normal (NORMAL) 03/27/17 05:50 RBC Morphology Abnormal (NORMAL) 03/27/17 05:50 Hypochromasia 1+ A 03/27/17 05:50 Poikilocytosis 1+ A 03/27/17 05:50 Anisocytosis 1+ A 03/27/17 05:50 INR Target Range - 03/23/17 17:52 INR 1.18 (0.8-1.3) 03/23/17 17:52 D-Dimer 2380 ng/mL (0-400) H* 03/23/17 17:52 Sodium 139 mmol/L (136-145) 03/27/17 05:50 Corrected Sodium TNP 03/27/17 05:50 Potassium 3.7 mmol/L (3.5-5.1) 03/27/17 05:50 Chloride 106 mmol/L (98-107) 03/27/17 05:50 Carbon Dioxide 24.4 mmol/L (21-32) 03/27/17 05:50 BUN 7 mg/dL (7-18) 03/27/17 05:50 Creatinine 0.79 mg/dL (0.70-1.30) 03/27/17 05:50 Est GFR (MDRD) Af Amer > 60 (>60) 03/27/17 05:50 Est GFR (MDRD) Non-Af > 60 (>60) 03/27/17 05:50 Glucose 98 mg/dL (65-99) 03/27/17 05:50 Calcium 9.1 mg/dL (8.5-10.1) 03/27/17 05:50 Corrected Calcium 10.0 mg/dL (8.5-10.1) 03/27/17 05:50 Phosphorus 4.7 mg/dL (2.6-4.7) 03/23/17 17:52 Magnesium 1.6 mg/dL (1.7-2.9) L 03/27/17 05:50 Total Bilirubin 0.40 mg/dL (0.2-1.0) 03/27/17 05:50 AST 20 Units/L (15-37) 03/27/17 05:50 ALT 12 Units/L (12-78) 03/27/17 05:50 Alkaline Phosphatase 78 Units/L (46-116) 03/27/17 05:50 Creatine Kinase 62 Units/L (39-308) 03/23/17 17:52 CK-MB (CK-2) < 1.0 ng/mL (0-4.0) 03/23/17 17:52 CK/CKMB % Calc 1.6 % (<4) 03/23/17 17:52 Troponin I 0.24 ng/mL (0-1.5) 03/23/17 17:52 Total Protein 5.9 g/dL (6.4-8.2) L 03/27/17 05:50 Albumin 2.9 g/dL (3.4-5.0) L 03/27/17 05:50 Globulin 3.0 g/dL (2.5-4.5) 03/27/17 05:50 Albumin/Globulin Ratio 1.0 Ratio (1.1-2.1) L 03/27/17 05:50 Stool Description 175g, dark green, 03/24/17 18:25 Stl Occult Blood (IFOB) Negative (NEGATIVE) 03/24/17 18:25 Stool for White Cells Positive (NEGATIVE) A 03/24/17 18:25 Stl C. diff Tox B Gene Negative (NEGATIVE) 03/24/17 18:25 Stl C. diff 027-NAP1-BI Negative (NEGATIVE) 03/24/17 18:25 Cryptosporid parvum Ag Negative (NEGATIVE) 03/24/17 18:25 E. histolytica Antigen Negative (NEGATIVE) 03/24/17 18:25 Giardia lamblia Ag Negative (NEGATIVE) 03/24/17 18:25 H. pylori IgG Antibody Negative (NEGATIVE) 03/24/17 06:00 - Plan (1) CHF exacerbation Status: Acute Qualifiers: Congestive heart failure type: systolic Qualified Code(s): I50.23 - Acute on chronic systolic (congestive) heart failure Plan: ALBUTEROL NEB TX TID, LASIX 40MG DAILY, ALDACTONE 25MG DAILY, LISINOPRIL 5MG DAILY, CONTINUE TO MONITOR LABS AND CHEST XRAY (2) Abdominal pain Status: Inactive Qualifiers: Abdominal location: generalized Qualified Code(s): R10.84 - Generalized abdominal pain (3) Anemia Status: Inactive Qualifiers: Anemia type: iron deficiency Qualified Code(s): D64.9 - Anemia, unspecified Plan: HEMOCYTE PLUS 2 TABS DAILY, CONTINUE TO MONITOR (4) Decreased appetite Status: Acute Plan: MEGACE 40MG PO BID, CONTINUE TO MONITOR (5) Hypokalemia Status: Inactive Plan: POTASSIUM PROTOCOL, CONTINUE TO MONITOR (6) Hypomagnesemia Status: Inactive Plan: MAGNESIUM SULFATE 2GM IV X 1, MAG-OS 400MG DAILY, CONTINUE TO MONITOR
[2017-03-27] MEDS ORDERED: COLACE CAP 100 MG PO SCH (21:00)
--- NOTE | 2017-03-27 21:30 | PCM.PROG ---
Progress Note - Progress Note for Day of Date: 03/27/17 - Subjective Subjective: WAS ADMITTED FOR CHF. HE IS ALERT AND ORIENTED, LYING IN BED ON MORNING ROUNDS. TODAY, PATIENT CONTINUES WITH COMPLAINTS OF LEFT SIDE ABDOMINAL PAIN, LEFT LEG PAIN, AND WEAKNESS. PATIENT REPORTS SEVERAL LOOSE STOOLS. ON EXAMINATION, PATIENTS LUNGS ARE NOTED CLEAR TO AUSCULTATION. ABDOMEN IS SOFT, FLAT, AND TENDER. HYPERACTIVE BOWEL SOUNDS ARE NOTED IN ALL QUADRANTS. HIS VITAL SIGNS THIS MORNING ARE 98.4-66-24-99%-123/61. CBC AND CMP WERE OBTAINED. ABNORMAL LAB VALUES INCLUDE THE FOLLOWING: WBC RBC 2.69, HGB 8.1, HCT 24.5, TOTAL PROTEIN 5.9, ALBUMIN 2.9, MAGNESIUM 1.6. YESTERDAY, WE OBTAINED AN ABDOMINAL SERIES. IT REPORTED A MODERATELY LARGE AMOUNT OF STOOL IN THE LEFT COLON, NO EVIDENCE FOR ACUTE ABDOMINAL PATHOLOGY IDENTIFIED. TODAY, WE WILL START MIRALAX 17GM DAILY AND MILK OF MAGNESIA QID PRN FOR CONSTIPATION AND ADMINISTER MAGNESIUM SULFATE 2GM IV X 1. WE PLAN TO OBTAIN A CT ABD/PELVIS WITH CONTRAST. OTHERWISE, WE WILL CONTINUE CURRENT PLAN OF CARE. PATIENTS SISTER WAS NOTIFED THAT NO LONG-TERM IN [place] WILL ACCEPT PATIENTS INSURANCE DUE TO IT BEING OUT OF STATE MEDICAID. PATIENTS SISTER STATES THAT SHE WILL TAKE PATIENT HOME WHEN HE IS DISCHARGED UNTIL SHE CAN GET HIS MEDICAID CHANGED. WE PLAN TO FOLLOW UP WITH AM LABS AND CONTINUE TO MONITOR PATIENT. - Past Medical Family Social History Past Med/Fam/Surg Hx: No changes since H&P Allergies: Allergies No Known Drug Allergies Allergy (Verified 01/31/17 18:10) - Review of Systems ROS: No change since H&P - Vital Signs and I&O's Vital Signs: Temperature 98.3 F Pulse Rate [Left Brachial] 92 Pulse Rate [Apical] 78 Pulse Rate 92 Respiratory Rate 20 Blood Pressure [Right Arm] 165/94 Blood Pressure [Left Arm] 123/61 Blood Pressure 154/92 O2 Sat by Pulse Oximetry 100 Intake and Output: Intake & Output 03/25/17 03/26/17 03/27/17 03/28/17 11:59 11:59 11:59 11:59 Intake Total 2482 2300 1470 360 Output Total 100 1375 300 Balance 2382 925 1170 360 - Physical Exam Oriented: Normal Eyes: Normal Ear: Normal Nose: Normal Throat: Normal Respiratory: Normal Cardiovascular: Normal : Normal Auscultation: Bowel Sounds: Normal Palpation: Normal Tenderness: Diffuse Skin: Normal Musculoskeletal: Normal, Instability Psychiatric: Normal Mood Description: Calm Affect: Normal Speech Pattern: Clear, Appropriate - Laboratory and Diagnostics Result Diagrams: 03/27/17 05:50 03/27/17 05:50 Labs: 03/24/17 18:25 Stool Stool Culture - Preliminary 03/24/17 18:25 Stool - Final Laboratory WBC 3.6 X10^3/uL (3.6-10.0) 03/27/17 05:50 RBC 2.69 X10^6/uL (4.7-6.0) L 03/27/17 05:50 Hgb 8.1 g/dL (13.5-18.0) L 03/27/17 05:50 Hct 24.5 % (42.0-54.0) L 03/27/17 05:50 MCV 91.1 fL (80.0-100.0) 03/27/17 05:50 MCH 30.1 pg (27.0-34.0) 03/27/17 05:50 MCHC 33.0 g/dL (33.0-35.0) 03/27/17 05:50 RDW 13.2 % (11.6-16.5) 03/27/17 05:50 Plt Count 98 X10^3/uL (150.0-450.0) L 03/27/17 05:50 Plt Count Comment Decreased (ADEQUATE) 03/27/17 05:50 MPV 10.8 fL (7.4-11.0) 03/27/17 05:50 Neut % 45.9 % (42.0-75.0) 03/27/17 05:50 Lymph % 38.2 % (21.0-51.0) 03/27/17 05:50 [place] % 13.9 % (0.0-13.0) H 03/27/17 05:50 Eos % 1.3 % (0.9-2.9) 03/27/17 05:50 Baso % 0.7 % (0.2-1.0) 03/27/17 05:50 Neut # 1.7 x10^3/uL (2.2-4.8) L 03/27/17 05:50 Lymph # 1.4 X10^3/uL (1.3-2.9) 03/27/17 05:50 [place] # 0.5 x10^3/uL (0.3-0.8) 03/27/17 05:50 Eos # 0.0 x10^3/uL (0.0-0.2) 03/27/17 05:50 Baso # 0.0 X10^3/uL (0.0-0.1) 03/27/17 05:50 Absolute Nucleated RBC 0.5 /100WBC 03/27/17 05:50 Total Counted 100 03/27/17 05:50 Neutrophils % (Manual) 45 % (39-76) 03/27/17 05:50 Lymphocytes % (Manual) 47 % (13-43) H 03/27/17 05:50 Monocytes % (Manual) 7 % (4-9) 03/27/17 05:50 Eosinophils % (Manual) 1 % (0-6) 03/27/17 05:50 Plt Morphology Comment Normal (NORMAL) 03/27/17 05:50 RBC Morphology Abnormal (NORMAL) 03/27/17 05:50 Hypochromasia 1+ A 03/27/17 05:50 Poikilocytosis 1+ A 03/27/17 05:50 Anisocytosis 1+ A 03/27/17 05:50 INR Target Range - 03/23/17 17:52 INR 1.18 (0.8-1.3) 03/23/17 17:52 D-Dimer 2380 ng/mL (0-400) H* 03/23/17 17:52 Sodium 139 mmol/L (136-145) 03/27/17 05:50 Corrected Sodium TNP 03/27/17 05:50 Potassium 3.7 mmol/L (3.5-5.1) 03/27/17 05:50 Chloride 106 mmol/L (98-107) 03/27/17 05:50 Carbon Dioxide 24.4 mmol/L (21-32) 03/27/17 05:50 BUN 7 mg/dL (7-18) 03/27/17 05:50 Creatinine 0.79 mg/dL (0.70-1.30) 03/27/17 05:50 Est GFR (MDRD) Af Amer > 60 (>60) 03/27/17 05:50 Est GFR (MDRD) Non-Af > 60 (>60) 03/27/17 05:50 Glucose 98 mg/dL (65-99) 03/27/17 05:50 Calcium 9.1 mg/dL (8.5-10.1) 03/27/17 05:50 Corrected Calcium 10.0 mg/dL (8.5-10.1) 03/27/17 05:50 Phosphorus 4.7 mg/dL (2.6-4.7) 03/23/17 17:52 Magnesium 1.6 mg/dL (1.7-2.9) L 03/27/17 05:50 Total Bilirubin 0.40 mg/dL (0.2-1.0) 03/27/17 05:50 AST 20 Units/L (15-37) 03/27/17 05:50 ALT 12 Units/L (12-78) 03/27/17 05:50 Alkaline Phosphatase 78 Units/L (46-116) 03/27/17 05:50 Creatine Kinase 62 Units/L (39-308) 03/23/17 17:52 CK-MB (CK-2) < 1.0 ng/mL (0-4.0) 03/23/17 17:52 CK/CKMB % Calc 1.6 % (<4) 03/23/17 17:52 Troponin I 0.24 ng/mL (0-1.5) 03/23/17 17:52 Total Protein 5.9 g/dL (6.4-8.2) L 03/27/17 05:50 Albumin 2.9 g/dL (3.4-5.0) L 03/27/17 05:50 Globulin 3.0 g/dL (2.5-4.5) 03/27/17 05:50 Albumin/Globulin Ratio 1.0 Ratio (1.1-2.1) L 03/27/17 05:50 Stool Description 175g, dark green, 03/24/17 18:25 Stl Occult Blood (IFOB) Negative (NEGATIVE) 03/24/17 18:25 Stool for White Cells Positive (NEGATIVE) A 03/24/17 18:25 Stl C. diff Tox B Gene Negative (NEGATIVE) 03/24/17 18:25 Stl C. diff [id number] Negative (NEGATIVE) 03/24/17 18:25 Cryptosporid parvum Ag Negative (NEGATIVE) 03/24/17 18:25 E. histolytica Antigen Negative (NEGATIVE) 03/24/17 18:25 Giardia lamblia Ag Negative (NEGATIVE) 03/24/17 18:25 H. pylori IgG Antibody Negative (NEGATIVE) 03/24/17 06:00 - Plan (1) CHF exacerbation Status: Acute Qualifiers: Congestive heart failure type: systolic Qualified Code(s): I50.23 - Acute on chronic systolic (congestive) heart failure Plan: ALBUTEROL NEB TX TID, LASIX 40MG DAILY, ALDACTONE 25MG DAILY, LISINOPRIL 5MG DAILY, CONTINUE TO MONITOR LABS AND CHEST XRAY (2) Abdominal pain Status: Inactive Qualifiers: Abdominal location: generalized Qualified Code(s): R10.84 - Generalized abdominal pain Plan: CT ABD/PELVIS WITH CONTRAST, GI COCKTAIL QID, CONTINUE TO MONITOR (3) Anemia Status: Inactive Qualifiers: Anemia type: iron deficiency Qualified Code(s): D64.9 - Anemia, unspecified Plan: HEMOCYTE PLUS 2 TABS DAILY, CONTINUE TO MONITOR (4) Decreased appetite Status: Acute Plan: MEGACE 40MG PO BID, CONTINUE TO MONITOR (5) Hypokalemia Status: Inactive Plan: POTASSIUM PROTOCOL, CONTINUE TO MONITOR (6) Hypomagnesemia Status: Inactive Plan: MAGNESIUM SULFATE 2GM IV X 1, MAG-OS 400MG DAILY, CONTINUE TO MONITOR
[2017-03-28] MEDS: LEVSIN/MAALOX/LIDOC VISC PO SCH ×2 (00:04→05:23)
[2017-03-28] MEDS: VOLTAREN 1 % GEL MULTI DOSE TUBE TOP SCH (05:26)
[2017-03-28] MEDS: ACCUNEB 1.25 MG NEBULE NEB SCH (05:44)
[2017-03-28] MEDS: MAG-OX TAB PO SCH (06:08)
[2017-03-28 06:24] LABS: BASOPHILS % (AUTO) 0.8 % (0.2-1.0); EOSINOPHILS % (AUTO) 0.6 % (0.9-2.9); HEMATOCRIT 23.1 % (42.0-54.0); HEMOGLOBIN 7.8 g/dL (13.5-18.0); LYMPHOCYTES # (AUTO) 1.2 X10^3/uL (1.3-2.9); LYMPHOCYTES % (AUTO) 43.4 % (21.0-51.0); MEAN CORPUSCULAR HEMOGLOBIN 30.7 pg (27.0-34.0); MEAN CORPUSCULAR HGB CONC 33.8 g/dL (33.0-35.0); MEAN CORPUSCULAR VOLUME 90.7 fL (80.0-100.0); MEAN PLATELET VOLUME 11.1 fL (7.4-11.0); MONOCYTES # (AUTO) 0.4 x10^3/uL (0.3-0.8); MONOCYTES % (AUTO) 15.8 % (0.0-13.0); NEUTROPHILS % (AUTO) 39.4 % (42.0-75.0); PLATELET COUNT 89 X10^3/uL (150.0-450.0); RED BLOOD COUNT 2.55 X10^6/uL (4.7-6.0); RED CELL DISTRIBUTION WIDTH 13.1 % (11.6-16.5); WHITE BLOOD COUNT 2.7 X10^3/uL (3.6-10.0)
[2017-03-28 06:34] LABS: ALANINE AMINOTRANSFERASE 11 Units/L (12-78); ALKALINE PHOSPHATASE 76 Units/L (46-116); ASPARTATE AMINO TRANSFERASE 25 Units/L (15-37); BLOOD UREA NITROGEN 8 mg/dL (7-18); CALCIUM 9.5 mg/dL (8.5-10.1); CARBON DIOXIDE 21.7 mmol/L (21-32); CHLORIDE 106 mmol/L (98-107); COR CA(FOR HYPOALB) 10.3 mg/dL (8.5-10.1); CREATININE 0.79 mg/dL (0.70-1.30); SODIUM 139 mmol/L (136-145); TOTAL PROTEIN 5.8 g/dL (6.4-8.2); eGFR BLACK RACES > 60 (>60); eGFR NON BLACK RACES > 60 (>60)
[2017-03-28 07:49] LABS: ANISOCYTOSIS SLIGHT; HYPOCHROMASIA 1+; PLATELET MORPHOLOGY COMMENT NORMAL (NORMAL); POIKILOCYTOSIS PRESENT; SPHEROCYTES PRESENT
[2017-03-28] MEDS: ALDACTONE TAB 25 MG PO SCH (09:29)
[2017-03-28] MEDS: ZANTAC PO SCH (09:29)
[2017-03-28] MEDS: PREVACID PO SCH (09:29)
[2017-03-28] MEDS: LASIX PO SCH (09:29)
[2017-03-28] MEDS: MICRO K EXTEN CAP 10 MEQ PO SCH (09:29)
[2017-03-28] MEDS: HEMOCYTE-PLUS PO SCH (09:30)
[2017-03-28] MEDS: ZESTRIL TAB 5 MG PO SCH (09:30)
[2017-03-28] MEDS: CIPRO TAB 500 MG PO SCH (09:30)
[2017-03-28] MEDS: MEGACE PO SCH (09:31)
[2017-03-28] MEDS: ALBUMIN HUMAN 25%- 100ML 100 ML IV SCH (09:31)
[2017-03-28 11:59] VITALS: BP 172/83
== END 2017-03-28 12:35 | disposition home or self-care (01) | DRG 293 ==
LOC: ER 18:02 → MED/SURG 21:36 → OBSVTOIN 03-26 08:00
PROVIDERS: ADMIT Internal Medicine; ATTEND Internal Medicine
DX: I50.23 Acute on chronic systolic (congestive) heart failure (principal); R07.89 Other chest pain; R94.31 Abnormal electrocardiogram [ECG] [EKG]; I25.10 Atherosclerotic heart disease of native coronary artery without angina pectoris; E78.2 Mixed hyperlipidemia; K21.9 Gastro-esophageal reflux disease without esophagitis; I10 Essential (primary) hypertension; R06.02 Shortness of breath; R60.0 Localized edema; M79.605 Pain in left leg; M79.604 Pain in right leg; R10.84 Generalized abdominal pain; D64.89 Other specified anemias; E87.6 Hypokalemia; R13.11 Dysphagia, oral phase; I51.7 Cardiomegaly; R19.7 Diarrhea, unspecified; R26.89 Other abnormalities of gait and mobility; R63.0 Anorexia; R79.1 Abnormal coagulation profile
CPT/HCPCS: 36415; 71010; 74022; 74177; 80053; 82270; 82550; 82553; 83630; 83735; 84100; 84132; 84484; 85025; 85378; 85610; 86677; 87045; 87328; 87329; 87336; 87427; 87493; 87899; 93005; 93970; 94640; 94760; 96365; 99284; A4216; A4222; P9047; S0179; G0378; J0744; J1940; J2270; J2405; J7613

== ENCOUNTER 2017-04-03 19:05 | Emergency (ER) | payer OTHER, MEDICAID ==
[2017-04-03 19:18] VITALS: BMI 20.9
--- NOTE | 2017-04-03 19:27 | DR.GENAD ---
HPI - PCP Primary Care Physician: [email or web address] - HPI Comment HPI Comment: PAIN WORSE TONIGHT. PATIENT HAVE EXERTIONAL DYSPNEA. HISTORY CHF ON LASIX AND IS TAKING MEDICATION INSTRUCTED. HAVE CHRONIC ABDOMINAL PAIN PARTLY DUE TO GI PROBLEMS AND PANCREATITIS. NON PRODUCTIVE COUGH. NO FEVER. PAIN WORSE TONIGHT. - Complaint/Symptoms Chief Complaint Doctors Comments: CHEST PAIN, ABDOMINAL PAIN AND INCREASING LOWER EXTREMITY EDEMA TIMES SEVERAL DAYS. Chief Complaint:: chest pain abd pain swelling in legs - Nurses notes reviewed Nurses Notes Review: Yes - Source History Provided: Patient, EMS - Mode of Arrival Mode of Arrival: Stretcher - Timing Onset of Chief Complaint: 04/03/17 Came on: Suddenly - Duration Duration: Constant Duration: Hours - Severity Severity: Moderate <MARÍA QUINN - Last Filed: 04/03/17 19:51> - Complaint/Symptoms Chief Complaint Doctors Comments: Patient states he has been taking his medicines and he had a bowel movement today and it was normal. He denies nausea or vomiting or constipation. <LYRIC CLINTON - Last Filed: 04/04/17 04:06> PMH - PMH Past Medical History: Yes Past Medical History: Angina, Coronary Artery Disease, CVA, Dyslipidemia, GERD, Hypertension Past Surgical History: Yes Surgical History: Cholecystectomy, Other - Family History History of Family Medical Conditions: Yes Family Medical History: Hypertension - Social History Does any household member use tobacco: No Alcohol Use: None Do you use any recreational Drugs:: No Lives With: Family Lives Where: Home - infectious screening In the last 2 months have you had wt loss of >10#?: NO Have you had fever, night sweats or hemotysis?: No Have you traveled outside the country in the last 6 months?: No Isolation: Standard <MARÍA QUINN - Last Filed: 04/03/17 19:51> ROS - Review of Systems Constitutional: Weakness, Fatigue, Loss of Appetite. negative: Chills, Fever Eyes: No Symptoms Reported. negative: Eye Pain, Discharge ENTM: No Symptoms Reported. negative: Ear Pain, Nose Discharge, Nose Congestion , Throat Pain Respiratoy: Non-Productive Cough, Short of Breath, Wheezing. negative: No Symptoms Reported Cardiovascular: Chest Pain, Edema Gastrointestinal/Abdominal: Abdominal Pain, Nausea. negative: Diarrhea, Vomiting Genitourinary: No Symptoms Reported. negative: Dysuria, Frequency, Hematuria Neurological: Headache, Weakness, Dizziness, Speech Problem (CHRONIC) Musculoskeletal: Back Pain, Muscle Pain, Neck Pain Integumentary: Change in Color Hematologic/Lymphatic: Easy Bleeding, Easy Bruising Endocrine: No Symptoms Reported All Other Systems: Reviewed and Negative Unable to Obtain Due To: Dementia <MARIETTA QUINNMARIE - Last Filed: 04/03/17 19:51> PE - General Limitations: No Limitations General Appearance: Alert, In Distress - Head Head Exam: Normal Inspection - Eyes Eye exam: PERRL, EOMI. negative: Scleral Icterus, Conjunctival Injection - ENT ENT Exam: Normal External Ear Exam External Ear Exam: Normal External Inspection TM/Canal Exam: Bilateral Normal Nose Exam: Normal Nose Exam Mouth Exam: Normal Inspection Throat Exam: Normal Inspection - Neck Neck Exam: Trachea Midline - Chest Chest Inspection: Symmetric Chest Wall Rise - Respiratory Respiratory Exam: Respiratory Distress. negative: Accessory Muscle Use Respiratory Exam: Bilateral Rhonchi, Upper Rhonchi, Lower Rhonchi - Cardiovascular Cardiovascular Exam: Regular Rate, Normal Rhythm, Normal Heart Sounds - Abdominal Exam Abdominal Exam: Normal Bowel Sounds, Soft, Tenderness Abdominal Tenderness: Diffuse, Moderate - Extremities Extremities Exam: Edema (2PLUS) - Back Back Exam: Normal Inspection - Neurologic Neurological Exam: Alert, Oriented X3 - Psychiatric Psychiatric Exam: Normal Affect, Normal Mood - Skin Skin Exam: Erythema <CHEYENNEMARIETTAMARIE - Last Filed: 04/03/17 19:51> - Vital Signs Vitals: Temperature 99.2 F Pulse Rate [Left] 82 Pulse Rate 87 Respiratory Rate 20 Blood Pressure [Right Arm] 137/89 Blood Pressure [Left Arm] 138/78 Blood Pressure 140/73 O2 Sat by Pulse Oximetry 100 MDM - Differential Diagnosis Differential Diagnosis: CHEST PAIN, ABDOMINAL PAIN, EDEMA <MARÍA QUINN - Last Filed: 04/03/17 19:51> Course - Reevaluation 1st: Improved - Consultation Called: 23:20 Call Returned: 23:25 (Patient to be treated as outpatient) Consultation Comments: [id number] Montgomery and states patient diuresed wll and is on appropriate medicines will try continued outpatient treatments with medicines adjustment if needed. Patient to return if gets worst. - Education/Counseling Education/Counseling: Patient, Family Educated On: Treatment, Diagnosis, Prognosis, Needs for Follow Up <LYRIC CLINTON - Last Filed: 04/04/17 04:06> ROR - Labs Reviewed Result Diagrams: 04/03/17 19:20 04/03/17 19:20 <MARÍA QUINN - Last Filed: 04/03/17 19:51> - Labs Reviewed Laboratory Results Reviewed?: Yes (all labs and x-ray results reviewed and discussed with patient) Result Diagrams: 04/03/17 19:20 04/04/17 03:25 - XRAY XRAY Interpreted by: Radiologist (cxr: Midabdominal small bowel prominence isn nonspecific. Developing obstruction not completely excluded. recomment followup) , Self (CXR: cardiomegaly without acute abnormality) - EKG Rate: 83 [place]: Normal Rhythm: Paced (atrial-sensed ventricular paced rhythm) <LYRIC CLINTON - Last Filed: 04/04/17 04:06> - Labs Reviewed Laboratory: WBC 4.1 X10^3/uL (3.6-10.0) 04/03/17 19:20 RBC 3.02 X10^6/uL (4.7-6.0) L 04/03/17 19:20 Hgb 9.1 g/dL (13.5-18.0) L 04/03/17 19:20 Hct 27.0 % (42.0-54.0) L 04/03/17 19:20 MCV 89.5 fL (80.0-100.0) 04/03/17 19:20 MCH 30.0 pg (27.0-34.0) 04/03/17 19:20 MCHC 33.6 g/dL (33.0-35.0) 04/03/17 19:20 RDW 14.1 % (11.6-16.5) 04/03/17 19:20 Plt Count 139 X10^3/uL (150.0-450.0) L 04/03/17 19:20 MPV 10.0 fL (7.4-11.0) 04/03/17 19:20 Neut % 37.4 % (42.0-75.0) L 04/03/17 19:20 Lymph % 48.2 % (21.0-51.0) 04/03/17 19:20 [place] % 13.7 % (0.0-13.0) H 04/03/17 19:20 Eos % 0.4 % (0.9-2.9) L 04/03/17 19:20 Baso % 0.3 % (0.2-1.0) 04/03/17 19:20 Neut # 1.5 x10^3/uL (2.2-4.8) L 04/03/17 19:20 Lymph # 2.0 X10^3/uL (1.3-2.9) 04/03/17 19:20 [place] # 0.6 x10^3/uL (0.3-0.8) 04/03/17 19:20 Eos # 0.0 x10^3/uL (0.0-0.2) 04/03/17 19:20 Baso # 0.0 X10^3/uL (0.0-0.1) 04/03/17 19:20 Absolute Nucleated RBC 0.1 /100WBC 04/03/17 19:20 INR Target Range - 04/03/17 19:20 INR 1.33 (0.8-1.3) H 04/03/17 19:20 PTT 29.0 SECONDS (22.9-36.5) 04/03/17 19:20 PTT Comment - 04/03/17 19:20 Sodium 142 mmol/L (136-145) 04/03/17 19:20 Corrected Sodium TNP 04/03/17 19:20 Potassium 3.6 mmol/L (3.5-5.1) 04/04/17 03:25 Chloride 106 mmol/L (98-107) 04/03/17 19:20 Carbon Dioxide 24.6 mmol/L (21-32) 04/03/17 19:20 BUN 6 mg/dL (7-18) L 04/03/17 19:20 Creatinine 0.94 mg/dL (0.70-1.30) 04/03/17 19:20 Est GFR (MDRD) Af Amer > 60 (>60) 04/03/17 19:20 Est GFR (MDRD) Non-Af > 60 (>60) 04/03/17 19:20 Glucose 101 mg/dL (65-99) H 04/03/17 19:20 Calcium 8.5 mg/dL (8.5-10.1) 04/03/17 19:20 Corrected Calcium TNP 04/03/17 19:20 Total Bilirubin 0.40 mg/dL (0.2-1.0) 04/03/17 19:20 AST 34 Units/L (15-37) 04/03/17 19:20 ALT 23 Units/L (12-78) 04/03/17 19:20 Alkaline Phosphatase 109 Units/L (46-116) 04/03/17 19:20 Creatine Kinase 64 Units/L (39-308) 04/04/17 03:25 CK-MB (CK-2) < 1.0 ng/mL (0-4.0) 04/04/17 03:25 CK/CKMB % Calc 1.6 % (<4) 04/04/17 03:25 Troponin I 0.07 ng/mL (0-1.5) 04/04/17 03:25 B-Natriuretic Peptide 916 pg/mL (0-79) H* 04/03/17 19:20 Total Protein 6.6 g/dL (6.4-8.2) 04/03/17 19:20 Albumin 3.4 g/dL (3.4-5.0) 04/03/17 19:20 Globulin 3.2 g/dL (2.5-4.5) 04/03/17 19:20 Albumin/Globulin Ratio 1.1 Ratio (1.1-2.1) 04/03/17 19:20 Amylase 80 Units/L (25-115) 04/03/17 19:20 Lipase 160 Units/L (73-393) 04/03/17 19:20 Ethyl Alcohol mg/dL 31 mg/dL (0-19.9) H 04/03/17 19:20 <MARÍA QUINN - Last Filed: 04/03/17 19:51> <LYRIC CLINTON - Last Filed: 04/04/17 04:06> - Diagnosis Discharge Problem: Chest pain, rule out acute myocardial infarction, Acute exacerbation of congestive heart failure, Hypokalemia, Ileus, unspecified, Alcohol intoxication , Dependent edema - Discharge Plan Disposition: 01 HOME, SELF-CARE Condition: Stable - Follow ups/Referrals Follow ups/Referrals: Roberto Carlos Hodges [Primary Care Provider] - 3 days - Instructions Instructions: Hypokalemia, Potassium Content of Foods, Heart Failure, Easy-to- Read, Edema, [id number]
[2017-04-03] MEDS ORDERED: MORPHINE SULFATE INJ 4 MG IVP ONE (19:30)
[2017-04-03] MEDS ORDERED: LASIX IVP ONE ×2 (19:30→19:37)
[2017-04-03] MEDS ORDERED: ZOFRAN INJ 4 MG VIAL IVP ONE (19:30)
[2017-04-03] MEDS ORDERED: ZOFRAN INJ 4 MG VIAL ONE (19:37)
[2017-04-03] MEDS ORDERED: MORPHINE SULFATE INJ 4 MG ONE (19:38)
[2017-04-03 19:49] LABS: BASOPHILS % (AUTO) 0.3 % (0.2-1.0); EOSINOPHILS % (AUTO) 0.4 % (0.9-2.9); HEMOGLOBIN 9.1 g/dL (13.5-18.0); LYMPHOCYTES % (AUTO) 48.2 % (21.0-51.0); MEAN CORPUSCULAR HGB CONC 33.6 g/dL (33.0-35.0); MEAN CORPUSCULAR VOLUME 89.5 fL (80.0-100.0); MONOCYTES # (AUTO) 0.6 x10^3/uL (0.3-0.8); MONOCYTES % (AUTO) 13.7 % (0.0-13.0); NEUTROPHILS # (AUTO) 1.5 x10^3/uL (2.2-4.8); NEUTROPHILS % (AUTO) 37.4 % (42.0-75.0); PLATELET COUNT 139 X10^3/uL (150.0-450.0); RED BLOOD COUNT 3.02 X10^6/uL (4.7-6.0); RED CELL DISTRIBUTION WIDTH 14.1 % (11.6-16.5); WHITE BLOOD COUNT 4.1 X10^3/uL (3.6-10.0)
[2017-04-03 20:01] LABS: ALANINE AMINOTRANSFERASE 23 Units/L (12-78); ALBUMIN 3.4 g/dL (3.4-5.0); ALKALINE PHOSPHATASE 109 Units/L (46-116); ASPARTATE AMINO TRANSFERASE 34 Units/L (15-37); BLOOD UREA NITROGEN 6 mg/dL (7-18); CALCIUM 8.5 mg/dL (8.5-10.1); CARBON DIOXIDE 24.6 mmol/L (21-32); CHLORIDE 106 mmol/L (98-107); CKMB % 1.5 % (<4); CREATINE KINASE 67 Units/L (39-308); CREATINE KINASE MB < 1.0 ng/mL (0-4.0); CREATININE 0.94 mg/dL (0.70-1.30); SODIUM 142 mmol/L (136-145); TOTAL PROTEIN 6.6 g/dL (6.4-8.2); TROPONIN I 0.05 ng/mL (0-1.5); eGFR BLACK RACES > 60 (>60); eGFR NON BLACK RACES > 60 (>60)
[2017-04-03] MEDS ORDERED: POTASSIUM CHLORIDE LIQ 20 MEQ UDC PO ONE (20:12)
[2017-04-03] MEDS ORDERED: PEPCID 20 MG IV PREMIX* 20 MG/50 ML BAG IV ONE ×2 (20:12→20:17)
[2017-04-03] MEDS ORDERED: POTASSIUM CHLORIDE LIQ 20 MEQ UDC ONE (20:17)
[2017-04-03 20:35] LABS: B-TYPE NATRIURETIC PEPTIDE 916 pg/mL (0-79)
[2017-04-03 20:55] LABS: AMYLASE 80 Units/L (25-115); LIPASE 160 Units/L (73-393)
--- NOTE | 2017-04-03 22:46 | RAD ---
Abdomen single view Indication: Chest and abdominal pain with leg swelling. Findings: Clips project over the gallbladder fossa compatible with cholecystectomy. There is no free air or pneumatosis. Gas stool are seen in the colon. Mid abdominal small bowel is mildly prominent. Impression: Midabdominal small bowel prominence is nonspecific. Developing obstruction not completely excluded. Follow-up radiographically to resolution. Reported By:
--- NOTE | 2017-04-03 22:49 | RAD ---
Chest AP portable Indication: Chest pain Comparison: 03/25/2017. Findings: There is no pneumothorax or effusion. There is no consolidation. Pacemaker leads and AICD l ead projects as expected. Heart size is enlarged. Impression: Cardiomegaly without other acute abnormality seen. Reported By:
[2017-04-04] MEDS ORDERED: K-LYTE EFFERVESCENT ONE (01:28)
[2017-04-04 01:51] LABS: CKMB % 1.5 % (<4); CREATINE KINASE 66 Units/L (39-308); CREATINE KINASE MB < 1.0 ng/mL (0-4.0); TROPONIN I 0.07 ng/mL (0-1.5)
[2017-04-04] MEDS ORDERED: K-LYTE EFFERVESCENT PO SCH (02:00)
[2017-04-04 03:54] LABS: CKMB % 1.6 % (<4); CREATINE KINASE 64 Units/L (39-308); CREATINE KINASE MB < 1.0 ng/mL (0-4.0); TROPONIN I 0.07 ng/mL (0-1.5)
[2017-04-04 05:22] VITALS: BP 131/71
== END 2017-04-04 05:49 | disposition home or self-care (01) ==
LOC: ER 19:07
DX: I50.9 Heart failure, unspecified (principal); R07.89 Other chest pain; E87.6 Hypokalemia; K56.7 Ileus, unspecified; F10.129 Alcohol abuse with intoxication, unspecified; R60.9 Edema, unspecified; I51.7 Cardiomegaly
CPT/HCPCS: 36415; 71010; 74000; 80053; 80320; 82150; 82550; 82553; 83690; 83880; 84132; 84484; 85025; 85610; 85730; 93005; 96365; 96374; 96375; 99283; A4222; S0028; G6040; J1940; J2270; J2405

== ENCOUNTER → 2017-04-27 | Emergency (ER) | payer OTHER, MEDICAID ==
[~2017-04-27] MED LIST: K-DUR TAB 20 MEQ PO ONE; K-LYTE EFFERVESCENT ONE; K-LYTE EFFERVESCENT PO ONE
[2017-04-27 22:46] VITALS: BMI 19.5
--- NOTE | 2017-04-27 23:07 | DR.GENAD ---
HPI - PCP Primary Care Physician: VIOLET - Complaint/Symptoms Chief Complaint:: HURTING IN MY CHEST FOR 2 HRS, MY STOMACH HURTS AND MY LEG, POINTING TO ABD AND RIGHT LEG. DENIES ANY N/V/D. SHORT OF BREATH WHEN WALKING. - Source History Provided: Patient - Mode of Arrival Mode of Arrival: Ambulatory - Timing Onset of Chief Complaint: 04/27/17 PMH - PMH Past Medical History: Yes Past Medical History: Angina, Coronary Artery Disease, CVA, Dyslipidemia, GERD, Hypertension Past Surgical History: Yes Surgical History: Cholecystectomy, Other Past Surgical History Comment: PACEMAKER/DEFIBRILLATOR? - Family History History of Family Medical Conditions: Yes Family Medical History: Hypertension - Social History Does patient currently use any type of tobacco product: No Have you used tobacco products in the last 12 months: No Type of Tobacco Use: None Does any household member use tobacco: No Alcohol Use: DAILY Do you use any recreational Drugs:: No Lives Where: Home - infectious screening Have you traveled outside the country in the last 6 months?: No Isolation: Standard ROS - Review of Systems Eyes: No Symptoms Reported ENTM: No Symptoms Reported Respiratoy: No Symptoms Reported Cardiovascular: No Symptoms Reported Gastrointestinal/Abdominal: No Symptoms Reported Genitourinary: No Symptoms Reported Neurological: No Symptoms Reported Musculoskeletal: No Symptoms Reported Integumentary: No Symptoms Reported Hematologic/Lymphatic: No Symptoms Reported Endocrine: No Symptoms Reported Psychiatric: No Symptoms Reported All Other Systems: Reviewed and Negative PE - Vital Signs Vitals: Pulse Rate [Apical] 70 Pulse Rate 70 Respiratory Rate 16 Blood Pressure [Right Arm] 131/71 Blood Pressure [Left Arm] 156/79 Blood Pressure 157/81 O2 Sat by Pulse Oximetry 100 - General General Appearance: Alert, In No Apparent Distress - Head Head Exam: Normal Inspection, Atraumatic - Eyes Eye exam: Normal Appearance, PERRL, EOMI - ENT ENT Exam: Normal Exam External Ear Exam: Normal External Inspection TM/Canal Exam: Bilateral Normal Nose Exam: Normal Nose Exam Mouth Exam: Normal Inspection Throat Exam: Normal Inspection - Neck Neck Exam: Normal Inspection - Chest Chest Inspection: Normal Inspection - Respiratory Respiratory Exam: Normal Lung Sounds Bilat Respiratory Exam: Bilateral Clear to Auscultation - Cardiovascular Cardiovascular Exam: Regular Rate, Normal Rhythm - Abdominal Exam Abdominal Exam: Normal Inspection Abdominal Tenderness: negative: RUQ, RLQ, LUQ, LLQ, Epigastrium, Suprapubic, Diffuse, Mild, Moderate, Severe, Other - Extremities Extremities Exam: Normal Inspection, Full ROM - Back Back Exam: Normal Inspection, Full ROM - Neurologic Neurological Exam: Alert, Oriented X3, CN II-XII Intact - Psychiatric Psychiatric Exam: Normal Affect, Normal Mood - Skin Skin Exam: Warm, Dry, Intact ROR - Labs Reviewed Laboratory Results Reviewed?: Yes (low potassium) Result Diagrams: 04/27/17 23:12 04/27/17 23:12 Laboratory: WBC 4.0 X10^3/uL (3.6-10.0) 04/27/17 23:12 RBC 3.04 X10^6/uL (4.7-6.0) L 04/27/17 23:12 Hgb 9.2 g/dL (13.5-18.0) L 04/27/17 23:12 Hct 26.7 % (42.0-54.0) L 04/27/17 23:12 MCV 87.8 fL (80.0-100.0) 04/27/17 23:12 MCH 30.1 pg (27.0-34.0) 04/27/17 23:12 MCHC 34.3 g/dL (33.0-35.0) 04/27/17 23:12 RDW 14.9 % (11.6-16.5) 04/27/17 23:12 Plt Count 141 X10^3/uL (150.0-450.0) L 04/27/17 23:12 MPV 9.2 fL (7.4-11.0) 04/27/17 23:12 Neut % 39.4 % (42.0-75.0) L 04/27/17 23:12 Lymph % 47.7 % (21.0-51.0) 04/27/17 23:12 [place] % 11.1 % (0.0-13.0) 04/27/17 23:12 Eos % 0.7 % (0.9-2.9) L 04/27/17 23:12 Baso % 1.1 % (0.2-1.0) H 04/27/17 23:12 Neut # 1.6 x10^3/uL (2.2-4.8) L 04/27/17 23:12 Lymph # 1.9 X10^3/uL (1.3-2.9) 04/27/17 23:12 [place] # 0.4 x10^3/uL (0.3-0.8) 04/27/17 23:12 Eos # 0.0 x10^3/uL (0.0-0.2) 04/27/17 23:12 Baso # 0.0 X10^3/uL (0.0-0.1) 04/27/17 23:12 Absolute Nucleated RBC 0.0 /100WBC 04/27/17 23:12 Sodium 141 mmol/L (136-145) 04/27/17 23:12 Corrected Sodium TNP 04/27/17 23:12 Potassium 2.9 mmol/L (3.5-5.1) L* 04/27/17 23:12 Chloride 106 mmol/L (98-107) 04/27/17 23:12 Carbon Dioxide 19.7 mmol/L (21-32) L 04/27/17 23:12 BUN 11 mg/dL (7-18) 04/27/17 23:12 Creatinine 1.02 mg/dL (0.70-1.30) 04/27/17 23:12 Est GFR (MDRD) Af Amer > 60 (>60) 04/27/17 23:12 Est GFR (MDRD) Non-Af > 60 (>60) 04/27/17 23:12 Glucose 91 mg/dL (65-99) 04/27/17 23:12 Calcium 8.4 mg/dL (8.5-10.1) L 04/27/17 23:12 Corrected Calcium TNP 04/27/17 23:12 Total Bilirubin 0.20 mg/dL (0.2-1.0) 04/27/17 23:12 AST 27 Units/L (15-37) 04/27/17 23:12 ALT 14 Units/L (12-78) 04/27/17 23:12 Alkaline Phosphatase 152 Units/L (46-116) H 04/27/17 23:12 Creatine Kinase 64 Units/L (39-308) 04/27/17 23:12 CK-MB (CK-2) < 1.0 ng/mL (0-4.0) 04/27/17 23:12 CK/CKMB % Calc 1.6 % (<4) 04/27/17 23:12 Troponin I 0.08 ng/mL (0-1.5) 04/27/17 23:12 C-Reactive Protein 1.10 mg/L (0-3.0) 04/27/17 23:12 Total Protein 6.8 g/dL (6.4-8.2) 04/27/17 23:12 Albumin 3.4 g/dL (3.4-5.0) 04/27/17 23:12 Globulin 3.4 g/dL (2.5-4.5) 04/27/17 23:12 Albumin/Globulin Ratio 1.0 Ratio (1.1-2.1) L 04/27/17 23:12 Influenza Type A (PCR) Negative (NEGATIVE) 04/27/17 23:12 Influenza Type B (PCR) Negative (NEGATIVE) 04/27/17 23:12 - Diagnosis Discharge Problem: Hypokalemia - Discharge Plan Condition: Stable - Follow ups/Referrals Follow ups/Referrals: Roberto Carlos Hodges [Primary Care Provider] - 3 days - Instructions
[2017-04-27 23:25] LABS: BASOPHILS % (AUTO) 1.1 % (0.2-1.0); EOSINOPHILS % (AUTO) 0.7 % (0.9-2.9); HEMATOCRIT 26.7 % (42.0-54.0); HEMOGLOBIN 9.2 g/dL (13.5-18.0); LYMPHOCYTES # (AUTO) 1.9 X10^3/uL (1.3-2.9); LYMPHOCYTES % (AUTO) 47.7 % (21.0-51.0); MEAN CORPUSCULAR HEMOGLOBIN 30.1 pg (27.0-34.0); MEAN CORPUSCULAR HGB CONC 34.3 g/dL (33.0-35.0); MEAN CORPUSCULAR VOLUME 87.8 fL (80.0-100.0); MEAN PLATELET VOLUME 9.2 fL (7.4-11.0); MONOCYTES # (AUTO) 0.4 x10^3/uL (0.3-0.8); MONOCYTES % (AUTO) 11.1 % (0.0-13.0); NEUTROPHILS # (AUTO) 1.6 x10^3/uL (2.2-4.8); NEUTROPHILS % (AUTO) 39.4 % (42.0-75.0); PLATELET COUNT 141 X10^3/uL (150.0-450.0); RED BLOOD COUNT 3.04 X10^6/uL (4.7-6.0); RED CELL DISTRIBUTION WIDTH 14.9 % (11.6-16.5)
[2017-04-27 23:40] LABS: ALANINE AMINOTRANSFERASE 14 Units/L (12-78); ALBUMIN 3.4 g/dL (3.4-5.0); ALKALINE PHOSPHATASE 152 Units/L (46-116); ASPARTATE AMINO TRANSFERASE 27 Units/L (15-37); BLOOD UREA NITROGEN 11 mg/dL (7-18); CALCIUM 8.4 mg/dL (8.5-10.1); CARBON DIOXIDE 19.7 mmol/L (21-32); CHLORIDE 106 mmol/L (98-107); CKMB % 1.6 % (<4); CREATINE KINASE 64 Units/L (39-308); CREATINE KINASE MB < 1.0 ng/mL (0-4.0); CREATININE 1.02 mg/dL (0.70-1.30); SODIUM 141 mmol/L (136-145); TOTAL PROTEIN 6.8 g/dL (6.4-8.2); TROPONIN I 0.08 ng/mL (0-1.5); eGFR BLACK RACES > 60 (>60); eGFR NON BLACK RACES > 60 (>60)
[2017-04-28 06:10] VITALS: BP 152/72
== END ==
LOC: ER 22:52
DX: E87.6 Hypokalemia (principal)
CPT/HCPCS: 36415; 80053; 82550; 82553; 84132; 84484; 85025; 86140; 87502; 93005; 99283

== ENCOUNTER 2017-05-09 10:01 | Inpatient (IN) | payer OTHER, MEDICAID ==
[2017-05-09] MEDS ORDERED: ASPIRIN PO ONE (10:17)
[2017-05-09] MEDS ORDERED: NITROSTAT SL PRN (10:17)
[2017-05-09] MEDS ORDERED: LEVSIN/MAALOX/LIDOC VISC PO ONE (10:18)
[2017-05-09] MEDS ORDERED: LEVSIN/MAALOX/LIDOC VISC ONE (10:21)
[2017-05-09] MEDS ORDERED: ASPIRIN ONE (10:21)
--- NOTE | 2017-05-09 10:21 | DR.GENAD ---
HPI - PCP Primary Care Physician: Carroll - Complaint/Symptoms Chief Complaint Doctors Comments: Patient is complaining of epigastric and xiphoid chest pain for the past 24 hours getting worst today with RETANA and problems catching his breath when he walks. States he has been taking his water pills but his legs has been swelling. He denies cold, cough, fever, chills, nausea, vomiting or any recent trauma. States he has HIV but is not taking any medicines because the doctor in [place] told him the virus was hidding from him. States he is a patient of Dr. Hodges. Chief Complaint:: "Starting last night I have just been hurting in my abdomen and chest. I seem to be giving out of breath just walking to the bathroom." - Nurses notes reviewed Nurses Notes Review: Yes - Source History Provided: Patient - Mode of Arrival Mode of Arrival: EMS - Timing Onset of Chief Complaint: 05/08/17 Came on: Gradually - Duration Duration: Constant How lon Duration: Hours - Location Location: epigastric and xiphoid tendernes - Severity Severity: Moderate - Modifying Factors Worsens:: nothing Improves:: nothing PMH - PMH Past Medical History: Yes Past Medical History: Angina, Coronary Artery Disease, CVA, Dyslipidemia, GERD, Hypertension Past Surgical History: Yes Surgical History: Cholecystectomy, Other - Family History History of Family Medical Conditions: Yes Family Medical History: Hypertension - Social History Does patient currently use any type of tobacco product: No Have you used tobacco products in the last 12 months: No Type of Tobacco Use: None Does any household member use tobacco: No Alcohol Use: Heavy Do you use any recreational Drugs:: No Lives With: Family Lives Where: Home - infectious screening In the last 2 months have you had wt loss of >10#?: NO Have you had fever, night sweats or hemotysis?: No Have you traveled outside the country in the last 6 months?: No Isolation: Standard ROS - Review of Systems Constitutional: No Symptoms Reported, See HPI, Loss of Appetite. negative: Chills, Diaphoresis, Fever, Malaise, Weakness, Irritable, Fatigue, Other Eyes: No Symptoms Reported ENTM: No Symptoms Reported Respiratoy: No Symptoms Reported, Short of Breath Cardiovascular: No Symptoms Reported, Chest Pain, Edema. negative: See HPI, Palpitations, Syncope, Cyanosis, Skin Mottling, Other Gastrointestinal/Abdominal: No Symptoms Reported, Abdominal Pain, Constipation. negative: See HPI, Diarrhea, Nausea, Vomiting, Food Intolerance, Other Genitourinary: No Symptoms Reported. negative: See HPI, Discharge, Dysuria, Frequency, Hematuria, Pain, Bleeding, Other Neurological: No Symptoms Reported Musculoskeletal: No Symptoms Reported Integumentary: No Symptoms Reported. negative: See HPI, Change in Color, Change in Hair/Nails, Dryness, Lesions, Lumps, Rash, Itching, Wound, Bruises, Juandice, Other Hematologic/Lymphatic: No Symptoms Reported. negative: See HPI, Anemia, Blood Clots, Easy Bleeding, Easy Bruising, Swollen Glands, Lymphadenopathy, Other Endocrine: No Symptoms Reported, Unexplained Weight Loss, Decreased Appetite Psychiatric: No Symptoms Reported PE - Vital Signs Vitals: Temperature 97.5 F Pulse Rate 76 Respiratory Rate 18 Blood Pressure [Right Arm] 152/72 Blood Pressure [Left Arm] 161/67 Blood Pressure 171/102 O2 Sat by Pulse Oximetry 100 - General Limitations: No Limitations General Appearance: Alert, In No Apparent Distress - Head Head Exam: Normal Inspection, Atraumatic, Normocephalic - Eyes Eye exam: Normal Appearance, PERRL, EOMI. negative: Scleral Icterus, Conjunctival Injection, Nystagmus, Miosis, Mydrasis, Periorbital Swelling, Periorbital Tenderness, Other - ENT ENT Exam: Normal Exam, Normal Oropharynx, Normal External Ear Exam, Mucous Membranes Moist, TM's Normal Bilaterally External Ear Exam: Normal External Inspection TM/Canal Exam: Bilateral Normal Nose Exam: Normal Nose Exam Mouth Exam: Normal Inspection Throat Exam: Normal Inspection. negative: Tonsillar Erythema, Tonsillomegaly, Tonsillar Exudate, R Peritonsillar Mass, L Peritonsillar Mass, Muffled Voice, Other - Neck Neck Exam: Normal Inspection, Full ROM, Trachea Midline - Chest Chest Inspection: Normal Inspection, Symmetric Chest Wall Rise. negative: Tenderness, Rash, Abscess, Other - Respiratory Respiratory Exam: Normal Lung Sounds Bilat Respiratory Exam: Bilateral Clear to Auscultation - Cardiovascular Cardiovascular Exam: Regular Rate, Normal Rhythm, Normal Heart Sounds, Systolic Murmur - Abdominal Exam Abdominal Exam: Normal Inspection, Normal Bowel Sounds, Soft. negative: Distention, Tenderness, Guarding, Rebound, Rigidity, Dimnished Bowel Sounds, Hyperactive Bowel Sounds, Hypoactive Bowel Sounds, Organomegaly, Trauma, Incision, Ascites, Mass, Bruit, Pulsatile Mass, Hernia, Other Abdominal Tenderness: negative: RUQ, RLQ, LUQ, LLQ, Epigastrium, Suprapubic, Diffuse, Mild, Moderate, Severe, Other - Extremities Extremities Exam: Normal Inspection, Full ROM, Normal Capillary Refill, Edema (1 -2+ pretibial edema). negative: Tenderness - Back Back Exam: Normal Inspection, Full ROM. negative: Tenderness, (R) CVA Tenderness, (L) CVA Tenderness, Muscle Spasm, Paraspinal Tenderness, Vertebral Tenderness, Rashes, (R) Sciatic Notch Tenderness, (L) Sciatic Notch Tendern, (R ) Straight Leg Raise, (L) Straight Leg Raise, Other - Neurologic Neurological Exam: Alert, Oriented X3, CN II-XII Intact. negative: Normal Gait (gait not tested) - Psychiatric Psychiatric Exam: Normal Affect, Normal Mood. negative: Depressed, Agitated, Anxious, Flat Affect, Manic, Homicidal Ideation, Suicidal Ideation, Other - Skin Skin Exam: Warm, Dry, Intact, Normal Color. negative: Rash, Cyanosis, Diaphoresis, Erythema, Pallor, Mottled, Other Course - Consultation Called: 16:45 Call Returned: 16:45 (Dr. Hodges to admit) - Education/Counseling Education/Counseling: Patient Educated On: Treatment, Diagnosis, Needs for Follow Up ROR - Labs Reviewed Laboratory Results Reviewed?: Yes (all labs and x-ray results reviewed and discussed with patient) Result Diagrams: 05/09/17 10:36 05/09/17 10:36 Laboratory: WBC 3.9 X10^3/uL (3.6-10.0) 05/09/17 10:36 RBC 3.91 X10^6/uL (4.7-6.0) L 05/09/17 10:36 Hgb 11.2 g/dL (13.5-18.0) L 05/09/17 10:36 Hct 34.6 % (42.0-54.0) L 05/09/17 10:36 MCV 88.6 fL (80.0-100.0) 05/09/17 10:36 MCH 28.7 pg (27.0-34.0) 05/09/17 10:36 MCHC 32.4 g/dL (33.0-35.0) L 05/09/17 10:36 RDW 16.5 % (11.6-16.5) 05/09/17 10:36 Plt Count 136 X10^3/uL (150.0-450.0) L 05/09/17 10:36 MPV 9.7 fL (7.4-11.0) 05/09/17 10:36 Neut % 54.6 % (42.0-75.0) 05/09/17 10:36 Lymph % 37.9 % (21.0-51.0) 05/09/17 10:36 Parke % 6.7 % (0.0-13.0) 05/09/17 10:36 Eos % 0.0 % (0.9-2.9) L 05/09/17 10:36 Baso % 0.8 % (0.2-1.0) 05/09/17 10:36 Neut # 2.1 x10^3/uL (2.2-4.8) L 05/09/17 10:36 Lymph # 1.5 X10^3/uL (1.3-2.9) 05/09/17 10:36 Parke # 0.3 x10^3/uL (0.3-0.8) 05/09/17 10:36 Eos # 0.0 x10^3/uL (0.0-0.2) 05/09/17 10:36 Baso # 0.0 X10^3/uL (0.0-0.1) 05/09/17 10:36 Absolute Nucleated RBC 0.4 /100WBC 05/09/17 10:36 INR Target Range - 05/09/17 10:36 INR 1.82 (0.8-1.3) H 05/09/17 10:36 PTT 27.1 SECONDS (22.9-36.5) 05/09/17 10:36 PTT Comment - 05/09/17 10:36 D-Dimer 3130 ng/mL (0-400) H* 05/09/17 10:36 Sodium 137 mmol/L (136-145) 05/09/17 10:36 Corrected Sodium TNP 05/09/17 10:36 Potassium 4.2 mmol/L (3.5-5.1) 05/09/17 10:36 Chloride 101 mmol/L (98-107) 05/09/17 10:36 Carbon Dioxide 18.6 mmol/L (21-32) L 05/09/17 10:36 BUN 24 mg/dL (7-18) H 05/09/17 10:36 Creatinine 1.43 mg/dL (0.70-1.30) H 05/09/17 10:36 Est GFR (MDRD) Af Amer > 60 (>60) 05/09/17 10:36 Est GFR (MDRD) Non-Af 52 (>60) L 05/09/17 10:36 Glucose 103 mg/dL (65-99) H 05/09/17 10:36 Calcium 9.6 mg/dL (8.5-10.1) 05/09/17 10:36 Corrected Calcium TNP 05/09/17 10:36 Magnesium 1.4 mg/dL (1.7-2.9) L 05/09/17 10:36 Total Bilirubin 1.70 mg/dL (0.2-1.0) H 05/09/17 10:36 AST 147 Units/L (15-37) H 05/09/17 10:36 ALT 79 Units/L (12-78) H 05/09/17 10:36 Alkaline Phosphatase 141 Units/L (46-116) H 05/09/17 10:36 Creatine Kinase 95 Units/L (39-308) 05/09/17 15:32 CK-MB (CK-2) 1.3 ng/mL (0-4.0) 05/09/17 15:32 CK/CKMB % Calc 1.4 % (<4) 05/09/17 15:32 Troponin I 0.10 ng/mL (0-1.5) 05/09/17 15:32 B-Natriuretic Peptide 1790 pg/mL (0-79) H* 05/09/17 10:36 Total Protein 7.8 g/dL (6.4-8.2) 05/09/17 10:36 Albumin 4.1 g/dL (3.4-5.0) 05/09/17 10:36 Globulin 3.7 g/dL (2.5-4.5) 05/09/17 10:36 Albumin/Globulin Ratio 1.1 Ratio (1.1-2.1) 05/09/17 10:36 Specimen Type Random urine 05/09/17 13:45 Urine Color Yellow (YELLOW) 05/09/17 13:45 Urine Appearance Clear (CLEAR) 05/09/17 13:45 Urine pH 5.0 (5.0 - 8.0) 05/09/17 13:45 Ur Specific [place] 1.015 (1.000-1.030) 05/09/17 13:45 Urine Protein 2+ (NEGATIVE) 05/09/17 13:45 Urine Glucose (UA) Negative (NEGATIVE) 05/09/17 13:45 Urine Ketones Negative (NEGATIVE) 05/09/17 13:45 Urine Occult Blood 1+ (NEGATIVE) 05/09/17 13:45 Urine Nitrite Negative (NEGATIVE) 05/09/17 13:45 Urine Bilirubin Negative (NEGATIVE) 05/09/17 13:45 Urine Urobilinogen Normal (NORMAL) 05/09/17 13:45 Ur Leukocyte Esterase Negative (NEGATIVE) 05/09/17 13:45 Urine RBC Rare /HPF (NEGATIVE) 05/09/17 13:45 Urine WBC Rare /HPF (NEGATIVE) 05/09/17 13:45 Ur Squamous Epith Cells Rare /HPF (NEGATIVE) 05/09/17 13:45 Urine Bacteria Negative /HPF (NEGATIVE) 05/09/17 13:45 Ur Culture Indicated? No/not indicated 05/09/17 13:45 H. pylori IgG Antibody Negative (NEGATIVE) 05/09/17 10:36 - EKG Rate: 70 [place]: Normal Rhythm: NSR, Paced Block: None ST: Nonsp - Diagnosis Discharge Problem: Chest pain, rule out acute myocardial infarction, dyspnea r/o Pulmonary embolism, Metabolic acidosis, HIV (human immunodeficiency virus infection), CHF exacerbation Congestive heart failure, acute Qualifiers: Congestive heart failure type: unspecified congestive heart failure type Qualified Code(s): I50.9 - Heart failure, unspecified - Discharge Plan Disposition: 09 ADMITTED INPATIENT Condition: Stable - Follow ups/Referrals Follow ups/Referrals: Roberto Carlos Hodges [Primary Care Provider] - 3 days - Instructions
[2017-05-09 11:06] LABS: BASOPHILS % (AUTO) 0.8 % (0.2-1.0); HEMATOCRIT 34.6 % (42.0-54.0); HEMOGLOBIN 11.2 g/dL (13.5-18.0); LYMPHOCYTES # (AUTO) 1.5 X10^3/uL (1.3-2.9); LYMPHOCYTES % (AUTO) 37.9 % (21.0-51.0); MEAN CORPUSCULAR HEMOGLOBIN 28.7 pg (27.0-34.0); MEAN CORPUSCULAR HGB CONC 32.4 g/dL (33.0-35.0); MEAN CORPUSCULAR VOLUME 88.6 fL (80.0-100.0); MEAN PLATELET VOLUME 9.7 fL (7.4-11.0); MONOCYTES # (AUTO) 0.3 x10^3/uL (0.3-0.8); MONOCYTES % (AUTO) 6.7 % (0.0-13.0); NEUTROPHILS # (AUTO) 2.1 x10^3/uL (2.2-4.8); NEUTROPHILS % (AUTO) 54.6 % (42.0-75.0); PLATELET COUNT 136 X10^3/uL (150.0-450.0); RED BLOOD COUNT 3.91 X10^6/uL (4.7-6.0); RED CELL DISTRIBUTION WIDTH 16.5 % (11.6-16.5); WHITE BLOOD COUNT 3.9 X10^3/uL (3.6-10.0)
--- NOTE | 2017-05-09 11:15 | RAD ---
Examination: Portable AP chest History: Out of breath Comparison reference: 04/03/2017 Findings: Stable cardiomegaly with no change in position of pacing device. The lungs are essentially clear. There is no evidence for pneumonia, pneumothorax or pleural fluid. Impression: Stable cardiomegaly with pacing device. No acute process identified. Reported By:
[2017-05-09 11:27] LABS: ALANINE AMINOTRANSFERASE 79 Units/L (12-78); ALBUMIN 4.1 g/dL (3.4-5.0); ALKALINE PHOSPHATASE 141 Units/L (46-116); ASPARTATE AMINO TRANSFERASE 147 Units/L (15-37); BLOOD UREA NITROGEN 24 mg/dL (7-18); CALCIUM 9.6 mg/dL (8.5-10.1); CARBON DIOXIDE 18.6 mmol/L (21-32); CHLORIDE 101 mmol/L (98-107); CKMB % 1.7 % (<4); CREATINE KINASE 99 Units/L (39-308); CREATINE KINASE MB 1.7 ng/mL (0-4.0); CREATININE 1.43 mg/dL (0.70-1.30); MAGNESIUM 1.4 mg/dL (1.7-2.9); SODIUM 137 mmol/L (136-145); TOTAL PROTEIN 7.8 g/dL (6.4-8.2); TROPONIN I 0.11 ng/mL (0-1.5); eGFR BLACK RACES > 60 (>60); eGFR NON BLACK RACES 52 (>60)
[2017-05-09] MEDS ORDERED: LASIX IVP ONE ×2 (12:01→22:04)
[2017-05-09 12:14] LABS: B-TYPE NATRIURETIC PEPTIDE 1790 pg/mL (0-79)
[2017-05-09 13:52] LABS: BILIRUBIN,URINE NEGATIVE (NEGATIVE); BLOOD/HEMOGLOBIN,URINE 1+ (NEGATIVE); GLUCOSE, URINE NEGATIVE (NEGATIVE); KETONES,URINE NEGATIVE (NEGATIVE); LEUKOCYTE ESTERASE ,URINE NEGATIVE (NEGATIVE); NITRITES,URINE NEGATIVE (NEGATIVE); PROTEIN,URINE 2+ (NEGATIVE); UROBILINOGEN,URINE NORMAL (NORMAL)
[2017-05-09 13:55] LABS: APPEARANCE,URINE CLEAR (CLEAR); COLOR,URINE YELLOW (YELLOW)
[2017-05-09 14:00] LABS: BACTERIA,URINE NEGATIVE /HPF (NEGATIVE); RBC,URINE RARE /HPF (NEGATIVE); SQUAMOUS EPITHELIAL CELL,UR RARE /HPF (NEGATIVE)
[2017-05-09 16:03] LABS: CKMB % 1.4 % (<4); CREATINE KINASE MB 1.3 ng/mL (0-4.0); TROPONIN I 0.1 ng/mL (0-1.5)
[2017-05-09] MEDS ORDERED: LOVENOX INJ 60 MG SYR SC SCH (17:00)
[2017-05-09 18:05] LABS: CKMB % 1.5 % (<4); CREATINE KINASE MB 1.2 ng/mL (0-4.0); TROPONIN I 0.12 ng/mL (0-1.5)
--- NOTE | 2017-05-09 19:39 | DR.CONSULT ---
Consult - Consultation for Day of: Date: 05/09/17 - Chief Complaint Chief Complaint: I'm Sick - Allergies Allergies/Adverse Reactions: Allergies Allergy/AdvReac Type Severity Reaction Status Date / Time No Known Drug Allergies Allergy Verified 04/27/17 22:46 - History of Present Illness History of Present Illness: 72 A/A male H/O HIV and CHF. admited with +BNP and SOB. Unable to obtain pheripheral IV access consulted for CVC placement - Past Medical History Past Medical History: Angina, Coronary Artery Disease, CVA, Dyslipidemia, GERD, Hypertension Additional Medical History: HIV, HEPATITIS C, PACEMAKER - Past Surgical History Surgical History: Cholecystectomy, Other Additional Surgical History: PACEMAKER - Family History Family Medical History: Hypertension - Social History Does patient currently use any type of tobacco product: No Have you used tobacco products in the last 12 months: No Type of Tobacco Use: None Does any household member use tobacco: No Alcohol Use: Heavy - Medications Home Medications: Furosemide [Lasix] 20 mg PO QAM 05/09/17 [History Confirmed 05/09/17] Furosemide [Lasix] 40 mg PO QAM 05/09/17 [History Confirmed 05/09/17] Lisinopril 5 mg PO DAILY 05/09/17 [History Confirmed 05/09/17] Magnesium Oxide [Magnesium] 400 mg PO DAILY 05/09/17 [History Confirmed 05/09/17 ] Megestrol Acetate [Megace] 40 mg PO BID 05/09/17 [History Confirmed 05/09/17] Ondansetron [Zofran Odt] 4 mg PO Q8H PRN 05/09/17 [History Confirmed 05/09/17] Ranitidine HCl [ZANTAC TAB 150 MG *] 150 mg PO DAILY 05/09/17 [History Confirmed 05/09/17] Spironolactone [Aldactone Tab 25 mg] 25 mg PO DAILY 05/09/17 [History Confirmed 05/09/17] - Review of Systems Constitutional: See HPI Respiratory: See HPI Cardiovascular: See HPI Gastrointestinal: Nausea, Vomiting Genitourinary: No Symptoms Reported Musculoskeletal: See HPI Neurological: See HPI, Weakness - Physical Exam Vital Signs: Temperature 97.5 F Pulse Rate 76 Respiratory Rate 18 Blood Pressure [Right Arm] 152/72 Blood Pressure [Left Arm] 161/67 Blood Pressure 171/102 O2 Sat by Pulse Oximetry 100 Oriented: Normal Eyes: Normal Ear: Normal Nose: Normal Throat: Normal Respiratory: Diminished Throughout Cardiovascular: Normal Skin: Decreased [place]urg[place], Bruising Psychiatric: Anxiety Mood Description: Flat, Anxious, Labile Speech Pattern: Delayed - Plan Plan: CVC placement under U/S guidance Procedures (ALL) - Central Line Placement PCM.CLCO: written consent Time out performed: Yes Patient placed pm monitor/pulse ox: Yes MD prep: mask, gown, gloves Centrial line prep: chlorhexidine scrub, sterile drapes applied Local anesthsia used: lidocane 1% Ultrasound used for placement: Yes (RIJ widely patent) Central line lumen ininserted: triple Post procedure: sutured in place, good blood return, all ports aspirated, flushed,capped, sterile dressing applied Post procedure xray: tip oc catheter in good position, no pneumothorax seen Patient tolerated procedure: Yes Complications: none
--- NOTE | 2017-05-09 20:18 | RAD ---
HISTORY: Line placement. Study: Single view of the chest. Comparison: Earlier same day Findings: Redemonstration of cardiomegaly No focal consolidations, pleural effusions or pneumothorax. Osseous s tructures demonstrate no acute abnormality. A new right central catheter terminates over the expecte d area of the SVC. IMPRESSION: 1. No acute cardiopulmonary process. 2. A right central catheter terminating over the expected area of the SVC. Reported By:
[2017-05-09] MEDS: LOVENOX INJ 60 MG SYR SC SCH (21:00)
[2017-05-09] MEDS: NS 1000 ML 1,000 ML IV SCH (21:00)
[2017-05-09] MEDS: ATIVAN TAB 1 MG PO PRN (21:00)
[2017-05-09 23:30] LABS: CKMB % 1.8 % (<4); CREATINE KINASE MB 1.3 ng/mL (0-4.0); TROPONIN I 0.14 ng/mL (0-1.5)
[2017-05-10] MEDS: NS 1000 ML 1,000 ML IV SCH ×2 (05:38→14:18)
[2017-05-10 05:54] LABS: ALANINE AMINOTRANSFERASE 110 Units/L (12-78); ALBUMIN 3.2 g/dL (3.4-5.0); ALKALINE PHOSPHATASE 113 Units/L (46-116); ASPARTATE AMINO TRANSFERASE 208 Units/L (15-37); BLOOD UREA NITROGEN 28 mg/dL (7-18); CALCIUM 8.5 mg/dL (8.5-10.1); CARBON DIOXIDE 23.3 mmol/L (21-32); CHLORIDE 104 mmol/L (98-107); CHOL/HDL RATIO 2.5 (0.0-5.0); CHOLESTEROL 76 mg/dL (0-200); COR CA(FOR HYPOALB) 9.1 mg/dL (8.5-10.1); CREATININE 1.33 mg/dL (0.70-1.30); HDL CHOLESTEROL 31 mg/dL (40-60); SODIUM 139 mmol/L (136-145); TOTAL PROTEIN 6.2 g/dL (6.4-8.2); TRIGLYCERIDES 33 mg/dL (0-150); eGFR BLACK RACES > 60 (>60); eGFR NON BLACK RACES 56 (>60)
[2017-05-10 06:02] LABS: CKMB % 1.6 % (<4); CREATINE KINASE MB 1.2 ng/mL (0-4.0); TROPONIN I 0.19 ng/mL (0-1.5)
[2017-05-10] MEDS ORDERED: K-LYTE EFFERVESCENT PO PRN (07:04)
[2017-05-10] MEDS ORDERED: MAG-OX TAB PO PRN (07:04)
[2017-05-10] MEDS ORDERED: K-RIDER 10 MEQ/NS 100 ML 10 MEQ/100 ML BAG IV PRN (07:04)
[2017-05-10] MEDS: MAGNESIUM SULFATE 1 GM/100 mL PREMIX 1 GM/100 ML BAG IV PRN ×6 (07:41→15:12)
[2017-05-10] MEDS: PROTONIX INJ 40 MG VIAL IVP SCH (08:42)
[2017-05-10] MEDS: LOVENOX INJ 60 MG SYR SC SCH ×2 (08:42→21:15)
[2017-05-10 08:51] LABS: CKMB % 1.5 % (<4); CREATINE KINASE MB 1.1 ng/mL (0-4.0); TROPONIN I 0.18 ng/mL (0-1.5)
[2017-05-10] MEDS ORDERED: PATIENT'S HOME MEDICATION (Ondansetron [Zofran Odt] 4 MG) PO PRN (10:20)
[2017-05-10 10:33] LABS: BASOPHILS % (AUTO) 1.4 % (0.2-1.0); EOSINOPHILS % (AUTO) 0.1 % (0.9-2.9); HEMATOCRIT 30.5 % (42.0-54.0); HEMOGLOBIN 10.1 g/dL (13.5-18.0); LYMPHOCYTES # (AUTO) 1.6 X10^3/uL (1.3-2.9); LYMPHOCYTES % (AUTO) 45.7 % (21.0-51.0); MEAN CORPUSCULAR HEMOGLOBIN 28.7 pg (27.0-34.0); MEAN CORPUSCULAR VOLUME 87.1 fL (80.0-100.0); MEAN PLATELET VOLUME 10.1 fL (7.4-11.0); MONOCYTES # (AUTO) 0.2 x10^3/uL (0.3-0.8); MONOCYTES % (AUTO) 6.7 % (0.0-13.0); NEUTROPHILS # (AUTO) 1.6 x10^3/uL (2.2-4.8); NEUTROPHILS % (AUTO) 46.1 % (42.0-75.0); PLATELET COUNT 127 X10^3/uL (150.0-450.0); RED CELL DISTRIBUTION WIDTH 16.5 % (11.6-16.5); WHITE BLOOD COUNT 3.6 X10^3/uL (3.6-10.0)
[2017-05-10] MEDS: ATIVAN TAB 1 MG PO PRN (11:32)
[2017-05-10] MEDS: ZESTRIL TAB 5 MG PO SCH (13:38)
[2017-05-10] MEDS: ALDACTONE TAB 25 MG PO SCH (13:39)
[2017-05-10] MEDS: MEGACE PO SCH ×2 (13:40→21:16)
[2017-05-10] MEDS: NORCO 5/325 MG TAB PO PRN (13:41)
[2017-05-10] MEDS: ZANTAC PO SCH (13:41)
[2017-05-10] MEDS: LANOXIN PO SCH (14:33)
[2017-05-11] MEDS: NORCO 5/325 MG TAB PO PRN ×3 (01:21→21:18)
[2017-05-11 05:35] LABS: EOSINOPHILS % (AUTO) 0.6 % (0.9-2.9); HEMATOCRIT 25.3 % (42.0-54.0); HEMOGLOBIN 8.6 g/dL (13.5-18.0); LYMPHOCYTES # (AUTO) 1.6 X10^3/uL (1.3-2.9); LYMPHOCYTES % (AUTO) 45.9 % (21.0-51.0); MEAN CORPUSCULAR HEMOGLOBIN 29.2 pg (27.0-34.0); MEAN CORPUSCULAR HGB CONC 33.8 g/dL (33.0-35.0); MEAN CORPUSCULAR VOLUME 86.3 fL (80.0-100.0); MEAN PLATELET VOLUME 10.2 fL (7.4-11.0); MONOCYTES # (AUTO) 0.3 x10^3/uL (0.3-0.8); NEUTROPHILS # (AUTO) 1.5 x10^3/uL (2.2-4.8); NEUTROPHILS % (AUTO) 44.5 % (42.0-75.0); PLATELET COUNT 115 X10^3/uL (150.0-450.0); RED BLOOD COUNT 2.94 X10^6/uL (4.7-6.0); RED CELL DISTRIBUTION WIDTH 16.3 % (11.6-16.5); WHITE BLOOD COUNT 3.4 X10^3/uL (3.6-10.0)
[2017-05-11 05:38] LABS: ALANINE AMINOTRANSFERASE 112 Units/L (12-78); ALBUMIN 2.9 g/dL (3.4-5.0); ALKALINE PHOSPHATASE 128 Units/L (46-116); ASPARTATE AMINO TRANSFERASE 191 Units/L (15-37); BLOOD UREA NITROGEN 21 mg/dL (7-18); CALCIUM 7.8 mg/dL (8.5-10.1); CARBON DIOXIDE 22.2 mmol/L (21-32); CHLORIDE 104 mmol/L (98-107); COR CA(FOR HYPOALB) 8.7 mg/dL (8.5-10.1); COR NA(FOR HYPERGLY) 137 mmol/L (136-145); CREATININE 1.01 mg/dL (0.70-1.30); DIGOXIN < 0.20 ng/mL (0.9-2); MAGNESIUM 1.8 mg/dL (1.7-2.9); SODIUM 137 mmol/L (136-145); eGFR BLACK RACES > 60 (>60); eGFR NON BLACK RACES > 60 (>60)
--- NOTE | 2017-05-11 06:34 | RAD ---
HISTORY: Follow-up congestive heart failure Study: Chest AP portable Comparison: 05/09/2017 Findings: There is a pacemaker present on the left obscuring a portion of the left mid lung. There is a right-s ided central line with its tip in the superior vena cava. The heart remains enlarged. No congestive h eart failure is identified. No acute alveolar infiltrates or pleural effusions are identified. The j[place] thorax is unremarkable. IMPRESSION: Cardiomegaly without congestive heart failure The lungs clear Reported By:
[2017-05-11] MEDS: NS 1000 ML 1,000 ML IV SCH (06:40)
[2017-05-11] MEDS: LASIX PO SCH (09:20)
[2017-05-11] MEDS: PROTONIX INJ 40 MG VIAL IVP SCH (09:20)
[2017-05-11] MEDS: ALDACTONE TAB 25 MG PO SCH (09:20)
[2017-05-11] MEDS: MEGACE PO SCH ×2 (09:21→21:18)
[2017-05-11] MEDS: LANOXIN PO SCH (09:21)
[2017-05-11] MEDS: ZESTRIL TAB 5 MG PO SCH (09:21)
[2017-05-11] MEDS: ZANTAC PO SCH (09:25)
[2017-05-11] MEDS: LOVENOX INJ 60 MG SYR SC SCH ×2 (09:25→21:18)
[2017-05-11] MEDS: NS + KCL 40 MEQ/L 1,000 ML IV SCH ×2 (09:28→21:20)
[2017-05-11] MEDS: ZOFRAN TAB 4 MG PO PRN (10:08)
--- NOTE | 2017-05-11 10:33 | DR.H&P ---
H&P - History & Physical for Day of: H&P Date: 05/09/17 - Chief Complaint Chief Complaint: chest pain, epigastric pain - Allergies Allergies/Adverse Reactions: Allergies Allergy/AdvReac Type Severity Reaction Status Date / Time No Known Drug Allergies Allergy Verified 04/27/17 22:46 - History of Present Illness History of Present Illness: is a 72 year old patient of ours who presented to the emergency room via EMS with reports of chest and epigastric pain. Patient reports that pain started last night and has progressively gotten worse today. He also reports shortness of breath that is worse on exertion. Associated symptoms are loss of appetite, shortness of breath, chest pain, edema , and constipation. Patient denies cold , fever, chills, nausea, or any recent trauma. He is noted with a dry cough. Patient reports a medical history of CVA, CAD, Angina, Pacemaker, Hypertension, Pneumonia, Gerd. On examination, lung sounds are diminished throughout. Abdomen is round, soft, and noted with diffuse tenderness. Bilateral lower extremities are noted with 2+ edema, despite reports of being complaint with diuretics and CHF medications. On arrival to the ER, his vital signs were 97.5, 76, 18, 100% 2L NC, 171/102. Labs , chest xray, and EKG were obtained. Abnormal lab values include the following: Abnormal Labs: RBC 3.91, Hgb 11.2, Hct 34.6, MCHC 32.4, Plt Count 136, INR 1.82 , critically high D-Dimer 3130, Carbon Dioxide 18.6, BUN 24, Creatinine 1.43, GFR non 52, Glucose 103, Magnesium 1.4, Total Bilirubin 1.70, AST 147, ALT 79, Alk Phos 141, BNP 1790. Chest X-Ray reported: @1017 Stable cardiomegaly with no change in position of pacing device. No acute process identified. @1931 No acute cardiopulmonary process. A right central catheter terminating over the expected area of the SVC. EKG reported: Ventricular-paced Rhythm. Rate=70. A chest CT was ordered, however, IV access was unobtainable. We admitted patient to the hospital for further treatment and evaluation of chest pain and CHF exacerbation. We planned to consult anesthesia for central line placement. He was started on normal saline with 40meq KCL at 80ml/hr. We plan to follow up with AM labs and chest xray and continue to monitor patient. - Past Medical History Past Medical History: Angina, Coronary Artery Disease, CVA, Dyslipidemia, GERD, Hypertension Additional Medical History: HIV, HEPATITIS C, PACEMAKER - Past Surgical History Surgical History: Cholecystectomy, Other Additional Surgical History: PACEMAKER - Family History Family Medical History: Hypertension - Social History Does patient currently use any type of tobacco product: No Have you used tobacco products in the last 12 months: No Type of Tobacco Use: None Does any household member use tobacco: No Alcohol Use: Heavy Drug Use: None - Medications Home Medications: Furosemide [Lasix] 20 mg PO QAM 05/09/17 [History Confirmed 05/09/17] Furosemide [Lasix] 40 mg PO QAM 05/09/17 [History Confirmed 05/09/17] Lisinopril 5 mg PO DAILY 05/09/17 [History Confirmed 05/09/17] Magnesium Oxide [Magnesium] 400 mg PO DAILY 05/09/17 [History Confirmed 05/09/17 ] Megestrol Acetate [Megace] 40 mg PO BID 05/09/17 [History Confirmed 05/09/17] Ondansetron [Zofran Odt] 4 mg PO Q8H PRN 05/09/17 [History Confirmed 05/09/17] Ranitidine HCl [ZANTAC TAB 150 MG *] 150 mg PO DAILY 05/09/17 [History Confirmed 05/09/17] Spironolactone [Aldactone Tab 25 mg] 25 mg PO DAILY 05/09/17 [History Confirmed 05/09/17] - Review of Systems Constitutional: Weakness Eyes: No Symptoms Reported. denies: Pain, Vision Change, Conjunctivae Inflammation, Eyelid Inflammation, Redness, Other ENT: No Symptoms Reported, See HPI. denies: Ear Pain, Ear Discharge, Nose Pain , Nose Discharge, Nose Congestion, Mouth Pain, Mouth Swelling, Throat Pain, Throat Swelling, Other Respiratory: Cough, Shortness of Breath, SOB with Excertion. denies: Hemoptysis , Sputum, Wheezing Cardiovascular: Chest Pain, Edema. denies: No Symptoms Reported, Palpitations, Orthopnea, Paroxysmal Noc. Dyspnea, Light Headedness, Other Gastrointestinal: Abdominal Pain, Constipation. denies: Nausea, Vomiting, Diarrhea, Melena, Hematochezia, Other Genitourinary: No Symptoms Reported. denies: See HPI, Dysuria, Frequency, Incontinence, Hematuria, Retention, Other Musculoskeletal: No Symptoms Reported Skin: No Symptoms Reported. denies: Rash, Lesions, Jaundice, Bruising, Wound, Ecchymosis, Other Neurological: Weakness. denies: Confusion, Seizures - Physical Exam Vital Signs: Temperature 97.9 F Pulse Rate [Left Brachial] 70 Pulse Rate 65 Respiratory Rate 20 Blood Pressure [Right Arm] 154/77 Blood Pressure [Left Arm] 123/64 Blood Pressure 171/102 O2 Sat by Pulse Oximetry 97 Oriented: Normal Eyes: Normal. negative: Blurred Vision, Diplopia, Discharge, Pain, Redness, Photophobia, Other Ear: Normal. negative: Right, Left, Swelling, Ecchymosis, Hemotypanum, Abrasion , Laceration Nose: Normal. negative: Injected, Discharge, Blood, Other Throat: Normal Respiratory: Diminished Throughout Cardiovascular: Normal, Edema : Normal Auscultation: Bowel Sounds: Normal Palpation: Normal Tenderness: Diffuse, Epigastric Skin: Normal Musculoskeletal: Instability Psychiatric: Normal Mood Description: Calm Affect: Normal Speech Pattern: Clear - Assessment/Plan (1) CHF exacerbation Qualifiers: Congestive heart failure type: unspecified congestive heart failure type Qualified Code(s): I50.9 - Heart failure, unspecified Status: Acute Plan: continue lasix, continue lisinopril 5mg po daily, continue aldactone 25mg po daily, continue to monitor labs and chest xray (2) Chest pain, rule out acute myocardial infarction Status: Acute Plan: serial cardiac enzymes and ekg, nitrostat 0.4mg sl q5m prn, continue to monitor
--- NOTE | 2017-05-11 10:40 | RAD ---
Examination: KUB History: Bloating and swelling Comparison reference: 04/03/2017 Findings: There is mild gaseous distention of the stomach, segments of small and large bowel primaril y in the left mid abdomen. No mass formation, pathologic calcification or ascites is noted. Impression: Findings consistent with ileus. No definite obstruction identified. Reported By:
[2017-05-11] MEDS: ROBITUSSIN DM PO PRN ×2 (16:26→21:18)
[2017-05-12] MEDS: ROBITUSSIN DM PO PRN (03:12)
[2017-05-12 05:51] LABS: ALANINE AMINOTRANSFERASE 95 Units/L (12-78); ALBUMIN 2.9 g/dL (3.4-5.0); ALKALINE PHOSPHATASE 123 Units/L (46-116); ASPARTATE AMINO TRANSFERASE 125 Units/L (15-37); BLOOD UREA NITROGEN 18 mg/dL (7-18); CALCIUM 7.9 mg/dL (8.5-10.1); CARBON DIOXIDE 22.4 mmol/L (21-32); CHLORIDE 107 mmol/L (98-107); COR CA(FOR HYPOALB) 8.8 mg/dL (8.5-10.1); CREATININE 1.01 mg/dL (0.70-1.30); DIGOXIN < 0.30 ng/mL (0.9-2); SODIUM 139 mmol/L (136-145); TOTAL PROTEIN 5.9 g/dL (6.4-8.2); eGFR BLACK RACES > 60 (>60); eGFR NON BLACK RACES > 60 (>60)
[2017-05-12 06:19] LABS: BASOPHILS % (AUTO) 0.6 % (0.2-1.0); EOSINOPHILS # (AUTO) 0.1 x10^3/uL (0.0-0.2); EOSINOPHILS % (AUTO) 1.4 % (0.9-2.9); HEMATOCRIT 25.7 % (42.0-54.0); HEMOGLOBIN 8.6 g/dL (13.5-18.0); LYMPHOCYTES # (AUTO) 1.6 X10^3/uL (1.3-2.9); LYMPHOCYTES % (AUTO) 43.8 % (21.0-51.0); MEAN CORPUSCULAR HGB CONC 33.3 g/dL (33.0-35.0); MEAN CORPUSCULAR VOLUME 87.2 fL (80.0-100.0); MEAN PLATELET VOLUME 10.2 fL (7.4-11.0); MONOCYTES # (AUTO) 0.3 x10^3/uL (0.3-0.8); MONOCYTES % (AUTO) 8.5 % (0.0-13.0); NEUTROPHILS # (AUTO) 1.7 x10^3/uL (2.2-4.8); NEUTROPHILS % (AUTO) 45.7 % (42.0-75.0); PLATELET COUNT 109 X10^3/uL (150.0-450.0); RED BLOOD COUNT 2.95 X10^6/uL (4.7-6.0); RED CELL DISTRIBUTION WIDTH 16.6 % (11.6-16.5); WHITE BLOOD COUNT 3.7 X10^3/uL (3.6-10.0)
--- NOTE | 2017-05-12 06:41 | RAD ---
HISTORY: Shortness of breath Study: Chest AP portable Comparison: 05/11/2017 Findings: The patient is rotated to the right. There is a right-sided central line in good position. There is a left-sided pacemaker obscuring the left mid lung. The heart remains enlarged. The priya are now somew hat indistinct suggestive of congestive heart failure. There has been interval development of bilater al pleural effusions since the prior examination. No alveolar edema, alveolar infiltrates are identif ied. The bony thorax is unremarkable. IMPRESSION: Cardiomegaly now with mild congestive heart failure in the form of interstitial edema New bilateral pleural effusions Reported By:
[2017-05-12] MEDS: NORCO 5/325 MG TAB PO PRN (09:35)
[2017-05-12] MEDS: MEGACE PO SCH ×2 (09:36→21:58)
[2017-05-12] MEDS: ALDACTONE TAB 25 MG PO SCH (09:36)
[2017-05-12] MEDS: PROTONIX INJ 40 MG VIAL IVP SCH (09:36)
[2017-05-12] MEDS: ZANTAC PO SCH (09:36)
[2017-05-12] MEDS: ZESTRIL TAB 5 MG PO SCH (09:36)
[2017-05-12] MEDS: LOVENOX INJ 60 MG SYR SC SCH ×2 (09:36→21:57)
[2017-05-12] MEDS: LASIX PO SCH (09:36)
[2017-05-12] MEDS: LANOXIN PO SCH (09:38)
[2017-05-12] MEDS: NS + KCL 40 MEQ/L 1,000 ML IV SCH (11:25)
[2017-05-12] MEDS: PROCALAMINE 3 % 1,000 ML IV SCH (11:45)
[2017-05-12] MEDS: ALBUMIN HUMAN 25%- 100ML 100 ML IV SCH (12:03)
--- NOTE | 2017-05-12 12:39 | PCM.PROG ---
Progress Note - Progress Note for Day of Date: 05/10/17 - Subjective Subjective: WAS ADMITTED FOR CHEST PAIN AND CHF EXACERBATION. TODAY, HE IS ALERT AND ORIENTED, SITTING UP IN BED ON MORNING ROUNDS. HE CONTINUES WITH COMPLAINTS OF SHORTNESS OF BREATH AND GENERALIZED WEAKNESS. HE DENIES CHEST PAIN THIS MORNING. ON EXAMINATION, LUNG SOUNDS ARE NOTED TO BE DIMINSHED. ABDOMEN IS ROUND, SOFT, AND NOTED WITH DIFFUSE TENDERNESS. NORMAL BOWEL SOUNDS NOTED IN ALL QUADRANTS. HE IS UTILIZING OXYGEN VIA NASAL CANNULA AT 2L/MIN. BILATERAL LOWER EXTREMITIES ARE NOTED WITH 1+ PITTING EDEMA. HIS VITAL SIGNS THIS MORNING ARE 97.7-71-18-100%-151/83. ABNORMAL LAB VALUES INCLUDE THE FOLLOWING: TBC 3.50, HGB 10.1, HCT 30.5. POTASSIUM 3.4, BUN 28, CREATININE 1.33 , GFR 56, AST 208, ALT 110, TOTAL PROTEIN 6.2, ALBUMIN 3.2, HDL 31. CARDIAC ENZYMES AND EKGS HAVE BEEN UNREMARKABLE. AN ECHO WAS OBTAINED ON THE LAST ADMISSION AND REPORTED AN EJECTION FRACTION OF LESS THAN 45%. WE WILL START DIGOXIN 0.125MG PO DAILY AND CONTINUE HOME MEDICATIONS. OTHERWISE, WE WILL FOLLOW UP WITH AM LABS AND CONTINUE TO MONITOR PATIENT. - Past Medical Family Social History Past Med/Fam/Surg Hx: No changes since H&P Allergies: Allergies No Known Drug Allergies Allergy (Verified 04/27/17 22:46) - Review of Systems ROS: No change since H&P - Vital Signs and I&O's Vital Signs: Temperature 97.7 F Pulse Rate [Left Brachial] 70 Pulse Rate 69 Respiratory Rate 18 Blood Pressure [Right Arm] 168/74 Blood Pressure [Left Arm] 145/77 Blood Pressure 171/102 O2 Sat by Pulse Oximetry 100 Intake and Output: Intake & Output 05/10/17 05/11/17 05/12/17 05/13/17 11:59 11:59 11:59 11:59 Intake Total 360 3000 1640 Output Total 125 200 300 Balance 235 2800 1340 - Physical Exam Oriented: Normal Eyes: Normal. negative: Blurred Vision, Diplopia, Discharge, Pain, Redness, Photophobia, Other Ear: Normal. negative: Right, Left, Swelling, Ecchymosis, Hemotypanum, Abrasion , Laceration Nose: Normal. negative: Injected, Discharge, Blood, Other Throat: Normal Respiratory: Right, Left, Generalized, Diminished Cardiovascular: Normal, Edema : Normal Auscultation: Bowel Sounds: Normal Palpation: Normal Tenderness: Diffuse, Mild Skin: Normal Musculoskeletal: Instability Psychiatric: Normal Mood Description: Calm Affect: Normal Speech Pattern: Clear, Appropriate - Laboratory and Diagnostics Result Diagrams: 05/12/17 04:50 05/12/17 04:50 Labs: Laboratory WBC 3.7 X10^3/uL (3.6-10.0) 05/12/17 04:50 RBC 2.95 X10^6/uL (4.7-6.0) L 05/12/17 04:50 Hgb 8.6 g/dL (13.5-18.0) L 05/12/17 04:50 Hct 25.7 % (42.0-54.0) L 05/12/17 04:50 MCV 87.2 fL (80.0-100.0) 05/12/17 04:50 MCH 29.0 pg (27.0-34.0) 05/12/17 04:50 MCHC 33.3 g/dL (33.0-35.0) 05/12/17 04:50 RDW 16.6 % (11.6-16.5) H 05/12/17 04:50 Plt Count 109 X10^3/uL (150.0-450.0) L 05/12/17 04:50 MPV 10.2 fL (7.4-11.0) 05/12/17 04:50 Neut % 45.7 % (42.0-75.0) 05/12/17 04:50 Lymph % 43.8 % (21.0-51.0) 05/12/17 04:50 [place] % 8.5 % (0.0-13.0) 05/12/17 04:50 Eos % 1.4 % (0.9-2.9) 05/12/17 04:50 Baso % 0.6 % (0.2-1.0) 05/12/17 04:50 Neut # 1.7 x10^3/uL (2.2-4.8) L 05/12/17 04:50 Lymph # 1.6 X10^3/uL (1.3-2.9) 05/12/17 04:50 [place] # 0.3 x10^3/uL (0.3-0.8) 05/12/17 04:50 Eos # 0.1 x10^3/uL (0.0-0.2) 05/12/17 04:50 Baso # 0.0 X10^3/uL (0.0-0.1) 05/12/17 04:50 Absolute Nucleated RBC 0.4 /100WBC 05/12/17 04:50 INR Target Range - 05/09/17 10:36 INR 1.82 (0.8-1.3) H 05/09/17 10:36 PTT 27.1 SECONDS (22.9-36.5) 05/09/17 10:36 PTT Comment - 05/09/17 10:36 D-Dimer 3130 ng/mL (0-400) H* 05/09/17 10:36 Sodium 139 mmol/L (136-145) 05/12/17 04:50 Corrected Sodium TNP 05/12/17 04:50 Potassium 4.2 mmol/L (3.5-5.1) 05/12/17 04:50 Chloride 107 mmol/L (98-107) 05/12/17 04:50 Carbon Dioxide 22.4 mmol/L (21-32) 05/12/17 04:50 BUN 18 mg/dL (7-18) 05/12/17 04:50 Creatinine 1.01 mg/dL (0.70-1.30) 05/12/17 04:50 Est GFR (MDRD) Af Amer > 60 (>60) 05/12/17 04:50 Est GFR (MDRD) Non-Af > 60 (>60) 05/12/17 04:50 Glucose 82 mg/dL (65-99) 05/12/17 04:50 Calcium 7.9 mg/dL (8.5-10.1) L 05/12/17 04:50 Corrected Calcium 8.8 mg/dL (8.5-10.1) 05/12/17 04:50 Magnesium 1.8 mg/dL (1.7-2.9) 05/11/17 04:50 Total Bilirubin 0.50 mg/dL (0.2-1.0) 05/12/17 04:50 AST 125 Units/L (15-37) H 05/12/17 04:50 ALT 95 Units/L (12-78) H 05/12/17 04:50 Alkaline Phosphatase 123 Units/L (46-116) H 05/12/17 04:50 Creatine Kinase 74 Units/L (39-308) 05/10/17 08:14 CK-MB (CK-2) 1.1 ng/mL (0-4.0) 05/10/17 08:14 CK/CKMB % Calc 1.5 % (<4) 05/10/17 08:14 Troponin I 0.18 ng/mL (0-1.5) 05/10/17 08:14 B-Natriuretic Peptide 1090 pg/mL (0-79) H* 05/11/17 04:50 Total Protein 5.9 g/dL (6.4-8.2) L 05/12/17 04:50 Albumin 2.9 g/dL (3.4-5.0) L 05/12/17 04:50 Globulin 3.0 g/dL (2.5-4.5) 05/12/17 04:50 Albumin/Globulin Ratio 1.0 Ratio (1.1-2.1) L 05/12/17 04:50 Triglycerides 33 mg/dL (0-150) 05/10/17 05:20 Cholesterol 76 mg/dL (0-200) 05/10/17 05:20 LDL Cholesterol, Calc 38 mg/dL (0-100) 05/10/17 05:20 HDL Cholesterol 31 mg/dL (40-60) L 05/10/17 05:20 Cholesterol/HDL Ratio 2.5 (0.0-5.0) 05/10/17 05:20 Specimen Type Random urine 05/09/17 13:45 Urine Color Yellow (YELLOW) 05/09/17 13:45 Urine Appearance Clear (CLEAR) 05/09/17 13:45 Urine pH 5.0 (5.0 - 8.0) 05/09/17 13:45 Ur Specific [place] 1.015 (1.000-1.030) 05/09/17 13:45 Urine Protein 2+ (NEGATIVE) 05/09/17 13:45 Urine Glucose (UA) Negative (NEGATIVE) 05/09/17 13:45 Urine Ketones Negative (NEGATIVE) 05/09/17 13:45 Urine Occult Blood 1+ (NEGATIVE) 05/09/17 13:45 Urine Nitrite Negative (NEGATIVE) 05/09/17 13:45 Urine Bilirubin Negative (NEGATIVE) 05/09/17 13:45 Urine Urobilinogen Normal (NORMAL) 05/09/17 13:45 Ur Leukocyte Esterase Negative (NEGATIVE) 05/09/17 13:45 Urine RBC Rare /HPF (NEGATIVE) 05/09/17 13:45 Urine WBC Rare /HPF (NEGATIVE) 05/09/17 13:45 Ur Squamous Epith Cells Rare /HPF (NEGATIVE) 05/09/17 13:45 Urine Bacteria Negative /HPF (NEGATIVE) 05/09/17 13:45 Ur Culture Indicated? No/not indicated 05/09/17 13:45 Digoxin < 0.30 ng/mL (0.9-2) L 05/12/17 04:50 H. pylori IgG Antibody Negative (NEGATIVE) 05/09/17 10:36 - Plan (1) CHF exacerbation Status: Acute Qualifiers: Congestive heart failure type: unspecified congestive heart failure type Qualified Code(s): I50.9 - Heart failure, unspecified Plan: digoxin 0.125mg po daily, continue lasix, continue lisinopril 5mg po daily , continue aldactone 25mg po daily, continue to monitor labs and chest xray (2) Chest pain, rule out acute myocardial infarction Status: Acute Plan: nitrostat 0.4mg sl q5m prn, telemetry, supplemental oxygen, continue to monitor
[2017-05-12 12:58] VITALS: BMI 19.5
[2017-05-12] MEDS: LASIX IVP SCH (21:58)
[2017-05-13 05:58] LABS: BASOPHILS % (AUTO) 0.8 % (0.2-1.0); EOSINOPHILS % (AUTO) 0.7 % (0.9-2.9); HEMATOCRIT 25.4 % (42.0-54.0); HEMOGLOBIN 8.4 g/dL (13.5-18.0); LYMPHOCYTES # (AUTO) 1.4 X10^3/uL (1.3-2.9); LYMPHOCYTES % (AUTO) 43.3 % (21.0-51.0); MEAN CORPUSCULAR HEMOGLOBIN 28.9 pg (27.0-34.0); MEAN CORPUSCULAR HGB CONC 33.2 g/dL (33.0-35.0); MEAN CORPUSCULAR VOLUME 87.2 fL (80.0-100.0); MEAN PLATELET VOLUME 10.8 fL (7.4-11.0); MONOCYTES # (AUTO) 0.3 x10^3/uL (0.3-0.8); MONOCYTES % (AUTO) 9.8 % (0.0-13.0); NEUTROPHILS # (AUTO) 1.4 x10^3/uL (2.2-4.8); NEUTROPHILS % (AUTO) 45.4 % (42.0-75.0); PLATELET COUNT 105 X10^3/uL (150.0-450.0); RED BLOOD COUNT 2.92 X10^6/uL (4.7-6.0); RED CELL DISTRIBUTION WIDTH 16.7 % (11.6-16.5); WHITE BLOOD COUNT 3.1 X10^3/uL (3.6-10.0)
[2017-05-13 06:11] LABS: ALANINE AMINOTRANSFERASE 69 Units/L (12-78); ALBUMIN 3.1 g/dL (3.4-5.0); ALKALINE PHOSPHATASE 94 Units/L (46-116); ASPARTATE AMINO TRANSFERASE 78 Units/L (15-37); BLOOD UREA NITROGEN 17 mg/dL (7-18); CALCIUM 8.8 mg/dL (8.5-10.1); CARBON DIOXIDE 21.6 mmol/L (21-32); CHLORIDE 104 mmol/L (98-107); COR CA(FOR HYPOALB) 9.5 mg/dL (8.5-10.1); CREATININE 0.93 mg/dL (0.70-1.30); DIGOXIN 0.54 ng/mL (0.9-2); SODIUM 137 mmol/L (136-145); TOTAL PROTEIN 6.1 g/dL (6.4-8.2); eGFR BLACK RACES > 60 (>60); eGFR NON BLACK RACES > 60 (>60)
--- NOTE | 2017-05-13 06:54 | RAD ---
HISTORY: Shortness of breath Study: Chest AP portable Comparison: 05/12/2017 Findings: The patient is rotated to the right. There is a right-sided central line in good position within the superior vena cava. There is a left-sided pacemaker obscuring a portion of the left mid lung. The hea rt remains enlarged. No congestive heart failure is identified on today's examination. Bilateral pleu ral effusions appear to be decreasing. No acute infiltrates are identified. The bony thorax is unrema rkable with the exception of chronic rotator cuff disease on the right. IMPRESSION: Cardiomegaly without congestive heart failure Decreasing bilateral pleural effusions No infiltrates Reported By:
[2017-05-13] MEDS: NS + KCL 40 MEQ/L 1,000 ML IV SCH (09:31)
[2017-05-13] MEDS: ALBUMIN HUMAN 25%- 100ML 100 ML IV SCH (09:31)
[2017-05-13] MEDS: NORCO 5/325 MG TAB PO PRN ×2 (09:32→20:27)
[2017-05-13] MEDS: ROBITUSSIN DM PO PRN (09:32)
[2017-05-13] MEDS: LANOXIN PO SCH (09:33)
[2017-05-13] MEDS: ATIVAN TAB 1 MG PO PRN ×2 (09:33→20:25)
[2017-05-13] MEDS: LASIX IVP SCH ×2 (09:35→20:26)
[2017-05-13] MEDS: MEGACE PO SCH ×2 (09:36→20:25)
[2017-05-13] MEDS: PROTONIX INJ 40 MG VIAL IVP SCH (09:36)
[2017-05-13] MEDS: ALDACTONE TAB 25 MG PO SCH (09:36)
[2017-05-13] MEDS: ZANTAC PO SCH (09:36)
[2017-05-13] MEDS: ZESTRIL TAB 5 MG PO SCH (09:36)
[2017-05-13] MEDS: LOVENOX INJ 60 MG SYR SC SCH ×2 (09:37→20:28)
[2017-05-14] MEDS: NS + KCL 40 MEQ/L 1,000 ML IV SCH (04:14)
[2017-05-14 05:50] LABS: ALANINE AMINOTRANSFERASE 55 Units/L (12-78); ALBUMIN 3.3 g/dL (3.4-5.0); ALKALINE PHOSPHATASE 85 Units/L (46-116); ASPARTATE AMINO TRANSFERASE 64 Units/L (15-37); BLOOD UREA NITROGEN 20 mg/dL (7-18); CALCIUM 9.1 mg/dL (8.5-10.1); CARBON DIOXIDE 23.1 mmol/L (21-32); CHLORIDE 102 mmol/L (98-107); COR CA(FOR HYPOALB) 9.7 mg/dL (8.5-10.1); CREATININE 0.95 mg/dL (0.70-1.30); DIGOXIN 0.72 ng/mL (0.9-2); SODIUM 136 mmol/L (136-145); TOTAL PROTEIN 6.2 g/dL (6.4-8.2); eGFR BLACK RACES > 60 (>60); eGFR NON BLACK RACES > 60 (>60)
--- NOTE | 2017-05-14 06:07 | RAD ---
History: shortness of breath Study: Portable AP chest Comparison: Yesterday Findings: There is unchanged moderate severe generalized cardiomegaly. There are intact pacemaker wir e leads from the left. There is an unchanged right jugular venous line in place. There is increased d ensity at the left lung base for which obscures the left hemidiaphragm. There is minimal blunting of the right costophrenic angle. Impression: 1. Unchanged moderate to severe cardiomegaly 2. Persistent left basilar density that may represent atelectasis or consolidation with or without a pleural effusion. 3. Unchanged small right pleural effusion Reported By:
[2017-05-14 06:10] LABS: BASOPHILS % (AUTO) 0.6 % (0.2-1.0); EOSINOPHILS % (AUTO) 0.6 % (0.9-2.9); HEMATOCRIT 25.8 % (42.0-54.0); HEMOGLOBIN 8.6 g/dL (13.5-18.0); LYMPHOCYTES # (AUTO) 1.4 X10^3/uL (1.3-2.9); LYMPHOCYTES % (AUTO) 45.3 % (21.0-51.0); MEAN CORPUSCULAR HEMOGLOBIN 29.1 pg (27.0-34.0); MEAN CORPUSCULAR HGB CONC 33.4 g/dL (33.0-35.0); MEAN CORPUSCULAR VOLUME 87.3 fL (80.0-100.0); MEAN PLATELET VOLUME 10.3 fL (7.4-11.0); MONOCYTES # (AUTO) 0.3 x10^3/uL (0.3-0.8); MONOCYTES % (AUTO) 10.6 % (0.0-13.0); NEUTROPHILS # (AUTO) 1.3 x10^3/uL (2.2-4.8); NEUTROPHILS % (AUTO) 42.9 % (42.0-75.0); PLATELET COUNT 112 X10^3/uL (150.0-450.0); RED BLOOD COUNT 2.96 X10^6/uL (4.7-6.0); RED CELL DISTRIBUTION WIDTH 16.3 % (11.6-16.5); WHITE BLOOD COUNT 3.1 X10^3/uL (3.6-10.0)
[2017-05-14] MEDS: ALBUMIN HUMAN 25%- 100ML 100 ML IV SCH (09:30)
[2017-05-14] MEDS: PROTONIX INJ 40 MG VIAL IVP SCH (09:45)
[2017-05-14] MEDS: ROBITUSSIN DM PO PRN (09:45)
[2017-05-14] MEDS: ZANTAC PO SCH (09:46)
[2017-05-14] MEDS: LANOXIN PO SCH (09:46)
[2017-05-14] MEDS: LASIX IVP SCH ×2 (09:47→21:25)
[2017-05-14] MEDS: ALDACTONE TAB 25 MG PO SCH (09:47)
[2017-05-14] MEDS: ZESTRIL TAB 5 MG PO SCH (09:47)
[2017-05-14] MEDS: MEGACE PO SCH ×2 (09:48→21:25)
[2017-05-14] MEDS: LOVENOX INJ 60 MG SYR SC SCH ×2 (09:48→21:28)
[2017-05-14] MEDS: NORCO 5/325 MG TAB PO PRN ×2 (09:48→17:43)
--- NOTE | 2017-05-14 10:05 | PCM.PROG ---
Progress Note - Progress Note for Day of Date: 05/11/17 - Subjective Subjective: WAS ADMITTED FOR CHEST PAIN AND CHF EXACERBATION. TODAY, HE IS ALERT AND ORIENTED, SITTING UP IN BED ON MORNING ROUNDS. HE CONTINUES WITH COMPLAINTS OF ABDOMINAL PAIN, SHORTNESS OF BREATH, AND GENERALIZED WEAKNESS. HE CONTINUES WITH NON-PRODUCTIVE COUGH BUT DENIES CHEST PAIN THIS MORNING. ON EXAMINATION, LUNG SOUNDS ARE NOTED TO BE DIMINSHED. ABDOMEN IS ROUND , SOFT, AND NOTED WITH DIFFUSE TENDERNESS. NORMAL BOWEL SOUNDS NOTED IN ALL QUADRANTS. HE IS UTILIZING OXYGEN VIA NASAL CANNULA AT 2L/MIN. BILATERAL LOWER EXTREMITIES CONTINUE WITH 1+ PITTING EDEMA. HIS VITAL SIGNS THIS MORNING ARE 9798.2-70-20-100%-147/89. ABNORMAL LAB VALUES INCLUDE THE FOLLOWING: WBC 3.4, RBC 2.94, HGB 8.6, HCT 25.3, POTASSIUM 3.1, BUN 21, GLUCOSE 114, CALCIUM 7.8, AST 191, ALT 112, ALK PHOS 128, TOTAL PROTEIN 6.0, ALBUMIN 2.9, BNP 1090. CARDIAC ENZYMES AND EKGS HAVE BEEN UNREMARKABLE. A CHEST XRAY WAS OBTAINED THIS MORNING AND REPORTED CARDIOMEGALY WITOUT CHF, LUNGS CLEAR. WE OBTAINED A KUB TODAY FOR COMPLAINTS OF ABDOMINAL PAIN. IT REPORTED FINDINGS CONSISTENT WITH ILEUS. NO DEFINITE OBSTRUCTION IDENTIFIED.WE WILL HOLD PATIENT NPO TODAY. OTHERWISE, WE WILL FOLLOW UP WITH AM LABS AND CONTINUE TO MONITOR PATIENT. - Past Medical Family Social History Past Med/Fam/Surg Hx: No changes since H&P Allergies: Allergies No Known Drug Allergies Allergy (Verified 04/27/17 22:46) - Review of Systems ROS: No change since H&P - Vital Signs and I&O's Vital Signs: Temperature 97.6 F Pulse Rate [Left Brachial] 70 Pulse Rate 70 Respiratory Rate 20 Blood Pressure [Right Arm] 168/74 Blood Pressure [Left Arm] 178/80 Blood Pressure 171/102 O2 Sat by Pulse Oximetry 97 Intake and Output: Intake & Output 05/11/17 05/12/17 05/13/17 05/14/17 11:59 11:59 11:59 11:59 Intake Total 3000 1640 460 970 Output Total 415 804 3710 1150 Balance 2800 1340 -1240 -180 - Physical Exam Oriented: Normal Eyes: Normal. negative: Blurred Vision, Diplopia, Discharge, Pain, Redness, Photophobia, Other Ear: Normal. negative: Right, Left, Swelling, Ecchymosis, Hemotypanum, Abrasion , Laceration Nose: Normal. negative: Injected, Discharge, Blood, Other Throat: Normal Respiratory: Right, Left, Generalized, Diminished Cardiovascular: Normal, Edema : Normal Auscultation: Bowel Sounds: Normal Palpation: Normal Tenderness: Diffuse, Moderate Skin: Normal Musculoskeletal: Instability Psychiatric: Normal Mood Description: Calm Affect: Normal Speech Pattern: Clear, Appropriate - Laboratory and Diagnostics Result Diagrams: 05/14/17 05:00 05/14/17 05:00 Labs: Laboratory WBC 3.1 X10^3/uL (3.6-10.0) L 05/14/17 05:00 RBC 2.96 X10^6/uL (4.7-6.0) L 05/14/17 05:00 Hgb 8.6 g/dL (13.5-18.0) L 05/14/17 05:00 Hct 25.8 % (42.0-54.0) L 05/14/17 05:00 MCV 87.3 fL (80.0-100.0) 05/14/17 05:00 MCH 29.1 pg (27.0-34.0) 05/14/17 05:00 MCHC 33.4 g/dL (33.0-35.0) 05/14/17 05:00 RDW 16.3 % (11.6-16.5) 05/14/17 05:00 Plt Count 112 X10^3/uL (150.0-450.0) L 05/14/17 05:00 MPV 10.3 fL (7.4-11.0) 05/14/17 05:00 Neut % 42.9 % (42.0-75.0) 05/14/17 05:00 Lymph % 45.3 % (21.0-51.0) 05/14/17 05:00 [place] % 10.6 % (0.0-13.0) 05/14/17 05:00 Eos % 0.6 % (0.9-2.9) L 05/14/17 05:00 Baso % 0.6 % (0.2-1.0) 05/14/17 05:00 Neut # 1.3 x10^3/uL (2.2-4.8) L 05/14/17 05:00 Lymph # 1.4 X10^3/uL (1.3-2.9) 05/14/17 05:00 [place] # 0.3 x10^3/uL (0.3-0.8) 05/14/17 05:00 Eos # 0.0 x10^3/uL (0.0-0.2) 05/14/17 05:00 Baso # 0.0 X10^3/uL (0.0-0.1) 05/14/17 05:00 Absolute Nucleated RBC 0.3 /100WBC 05/14/17 05:00 INR Target Range - 05/09/17 10:36 INR 1.82 (0.8-1.3) H 05/09/17 10:36 PTT 27.1 SECONDS (22.9-36.5) 05/09/17 10:36 PTT Comment - 05/09/17 10:36 D-Dimer 3130 ng/mL (0-400) H* 05/09/17 10:36 Sodium 136 mmol/L (136-145) 05/14/17 05:00 Corrected Sodium TNP 05/14/17 05:00 Potassium 4.4 mmol/L (3.5-5.1) 05/14/17 05:00 Chloride 102 mmol/L (98-107) 05/14/17 05:00 Carbon Dioxide 23.1 mmol/L (21-32) 05/14/17 05:00 BUN 20 mg/dL (7-18) H 05/14/17 05:00 Creatinine 0.95 mg/dL (0.70-1.30) 05/14/17 05:00 Est GFR (MDRD) Af Amer > 60 (>60) 05/14/17 05:00 Est GFR (MDRD) Non-Af > 60 (>60) 05/14/17 05:00 Glucose 95 mg/dL (65-99) 05/14/17 05:00 Calcium 9.1 mg/dL (8.5-10.1) 05/14/17 05:00 Corrected Calcium 9.7 mg/dL (8.5-10.1) 05/14/17 05:00 Magnesium 1.8 mg/dL (1.7-2.9) 05/11/17 04:50 Total Bilirubin 1.10 mg/dL (0.2-1.0) H 05/14/17 05:00 AST 64 Units/L (15-37) H 05/14/17 05:00 ALT 55 Units/L (12-78) 05/14/17 05:00 Alkaline Phosphatase 85 Units/L (46-116) 05/14/17 05:00 Creatine Kinase 74 Units/L (39-308) 05/10/17 08:14 CK-MB (CK-2) 1.1 ng/mL (0-4.0) 05/10/17 08:14 CK/CKMB % Calc 1.5 % (<4) 05/10/17 08:14 Troponin I 0.18 ng/mL (0-1.5) 05/10/17 08:14 B-Natriuretic Peptide 1090 pg/mL (0-79) H* 05/11/17 04:50 Total Protein 6.2 g/dL (6.4-8.2) L 05/14/17 05:00 Albumin 3.3 g/dL (3.4-5.0) L 05/14/17 05:00 Globulin 2.9 g/dL (2.5-4.5) 05/14/17 05:00 Albumin/Globulin Ratio 1.1 Ratio (1.1-2.1) 05/14/17 05:00 Triglycerides 33 mg/dL (0-150) 05/10/17 05:20 Cholesterol 76 mg/dL (0-200) 05/10/17 05:20 LDL Cholesterol, Calc 38 mg/dL (0-100) 05/10/17 05:20 HDL Cholesterol 31 mg/dL (40-60) L 05/10/17 05:20 Cholesterol/HDL Ratio 2.5 (0.0-5.0) 05/10/17 05:20 Specimen Type Random urine 05/09/17 13:45 Urine Color Yellow (YELLOW) 05/09/17 13:45 Urine Appearance Clear (CLEAR) 05/09/17 13:45 Urine pH 5.0 (5.0 - 8.0) 05/09/17 13:45 Ur Specific [place] 1.015 (1.000-1.030) 05/09/17 13:45 Urine Protein 2+ (NEGATIVE) 05/09/17 13:45 Urine Glucose (UA) Negative (NEGATIVE) 05/09/17 13:45 Urine Ketones Negative (NEGATIVE) 05/09/17 13:45 Urine Occult Blood 1+ (NEGATIVE) 05/09/17 13:45 Urine Nitrite Negative (NEGATIVE) 05/09/17 13:45 Urine Bilirubin Negative (NEGATIVE) 05/09/17 13:45 Urine Urobilinogen Normal (NORMAL) 05/09/17 13:45 Ur Leukocyte Esterase Negative (NEGATIVE) 05/09/17 13:45 Urine RBC Rare /HPF (NEGATIVE) 05/09/17 13:45 Urine WBC Rare /HPF (NEGATIVE) 05/09/17 13:45 Ur Squamous Epith Cells Rare /HPF (NEGATIVE) 05/09/17 13:45 Urine Bacteria Negative /HPF (NEGATIVE) 05/09/17 13:45 Ur Culture Indicated? No/not indicated 05/09/17 13:45 Digoxin 0.72 ng/mL (0.9-2) L 05/14/17 05:00 H. pylori IgG Antibody Negative (NEGATIVE) 05/09/17 10:36 - Plan (1) CHF exacerbation Status: Acute Qualifiers: Congestive heart failure type: unspecified congestive heart failure type Qualified Code(s): I50.9 - Heart failure, unspecified Plan: digoxin 0.125mg po daily, continue lasix, continue lisinopril 5mg po daily , continue aldactone 25mg po daily, continue to monitor labs and chest xray (2) Chest pain, rule out acute myocardial infarction Status: Acute Plan: nitrostat 0.4mg sl q5m prn, telemetry, supplemental oxygen, continue to monitor (3) Abdominal pain Status: Acute Qualifiers: Abdominal location: generalized Qualified Code(s): R10.84 - Generalized abdominal pain Plan: OBTAIN KUB, NPO, ZOFRAN 4MG Q8H PRN NAUSEA, PROTONIX 40MG IVP DAILY, ZANTAC 150MG PO DAILY, CONTINUE TO MONITOR (4) Hypertension Status: Chronic Qualifiers: Hypertension type: essential hypertension Qualified Code(s): I10 - Essential (primary) hypertension Plan: CONTINUE LISINOPRIL 5MG PO DAILY, CONTINUE TO MONITOR (5) COPD (chronic obstructive pulmonary disease) Status: Chronic Qualifiers: COPD type: chronic bronchitis Chronic bronchitis type: unspecified Qualified Code(s): J42 - Unspecified chronic bronchitis Plan: CONTINUE TO MONITOR
[2017-05-14] MEDS: MILK OF MAGNESIA PO SCH ×3 (10:54→16:59)
[2017-05-14] MEDS: COLACE CAP 100 MG PO SCH ×2 (10:54→21:25)
[2017-05-14] MEDS: MIRALAX POWDER (1 DOSE 17GM) PO SCH (10:54)
--- NOTE | 2017-05-14 11:59 | PCM.PROG ---
Progress Note - Progress Note for Day of Date: 05/12/17 - Subjective Subjective: WAS ADMITTED FOR CHEST PAIN AND CHF EXACERBATION. TODAY, HE IS ALERT AND ORIENTED, SITTING UP IN BED ON MORNING ROUNDS. HE CONTINUES WITH COMPLAINTS OF ABDOMINAL PAIN, GENERALIZED WEAKNESS, AND INCREASED SHORTNESS OF BREATH. HE REPORTS THAT SHORTNESS OF BREATH HAS WORSENED SINCE YESTERDAY. HE CONTINUES WITH NON-PRODUCTIVE COUGH BUT DENIES CHEST PAIN THIS MORNING. ON EXAMINATION, LUNG SOUNDS ARE NOTED TO BE DIMINSHED. ABDOMEN IS ROUND , SOFT, AND NOTED WITH DIFFUSE TENDERNESS. NORMAL BOWEL SOUNDS NOTED IN ALL QUADRANTS. HE IS UTILIZING OXYGEN VIA NASAL CANNULA AT 2L/MIN. BILATERAL LOWER EXTREMITIES CONTINUE WITH EDEMA, BUT HAVE SLIGHTLY IMPROVED SINCE YESTERDAY. HIS VITAL SIGNS THIS MORNING ARE 97.7-70-18-100%-145/77. ABNORMAL LAB VALUES INCLUDE THE FOLLOWING: RBC 2.95, HGB 8.6, HCT 25.7, CALCIUM 7.9, AST 125, ALT 95 , ALK PHOS 123, TOTAL PROTEIN 5.9, ALBUMIN 2.9. A CHEST XRAY WAS OBTAINED THIS MORNING AND REPORTED CARDIOMEGALY NOW WITH MILD CONGESTIVE HEART FAILURE IN THE FORM OF INTERSTITIAL EDEMA. NEW BILATERAL PLEURAL EFFUSIONS. WE WILL CONTINUE TO HOLD PATIENT NPO TODAY, HE CONTINUES WITH ABDOMINAL PAIN AND HAS NOT HAD A BOWEL MOVEMENT. WE WILL START PROCALAMINE AT 40ML/HR, ALBUMIN 25% IV DAILY, AND INCREASE LASIX TO 20MG IV BID. OTHERWISE, WE WILL CONTINUE WITH CURRENT PLAN OF CARE TODAY. WE WILL FOLLOW UP WITH AM LABS AND CONTINUE TO MONITOR PATIENT. - Past Medical Family Social History Past Med/Fam/Surg Hx: No changes since H&P Allergies: Allergies No Known Drug Allergies Allergy (Verified 04/27/17 22:46) - Review of Systems ROS: No change since H&P - Vital Signs and I&O's Vital Signs: Temperature 97.6 F Pulse Rate [Left Brachial] 70 Pulse Rate 70 Respiratory Rate 20 Blood Pressure [Right Arm] 168/74 Blood Pressure [Left Arm] 178/80 Blood Pressure 171/102 O2 Sat by Pulse Oximetry 97 Intake and Output: Intake & Output 05/11/17 05/12/17 05/13/17 05/14/17 11:59 11:59 11:59 11:59 Intake Total 3000 1640 460 970 Output Total 713 955 2598 1150 Balance 2800 1340 -1240 -180 - Physical Exam Oriented: Normal Eyes: Normal. negative: Blurred Vision, Diplopia, Discharge, Pain, Redness, Photophobia, Other Ear: Normal. negative: Right, Left, Swelling, Ecchymosis, Hemotypanum, Abrasion , Laceration Nose: Normal. negative: Injected, Discharge, Blood, Other Throat: Normal Respiratory: Right, Left, Generalized, Diminished Cardiovascular: Normal, Edema : Normal Auscultation: Bowel Sounds: Normal Palpation: Normal Tenderness: Diffuse, Moderate Skin: Normal Musculoskeletal: Instability Psychiatric: Normal Mood Description: Calm Affect: Normal Speech Pattern: Clear, Appropriate - Laboratory and Diagnostics Result Diagrams: 05/14/17 05:00 05/14/17 05:00 Labs: Laboratory WBC 3.1 X10^3/uL (3.6-10.0) L 05/14/17 05:00 RBC 2.96 X10^6/uL (4.7-6.0) L 05/14/17 05:00 Hgb 8.6 g/dL (13.5-18.0) L 05/14/17 05:00 Hct 25.8 % (42.0-54.0) L 05/14/17 05:00 MCV 87.3 fL (80.0-100.0) 05/14/17 05:00 MCH 29.1 pg (27.0-34.0) 05/14/17 05:00 MCHC 33.4 g/dL (33.0-35.0) 05/14/17 05:00 RDW 16.3 % (11.6-16.5) 05/14/17 05:00 Plt Count 112 X10^3/uL (150.0-450.0) L 05/14/17 05:00 MPV 10.3 fL (7.4-11.0) 05/14/17 05:00 Neut % 42.9 % (42.0-75.0) 05/14/17 05:00 Lymph % 45.3 % (21.0-51.0) 05/14/17 05:00 [place] % 10.6 % (0.0-13.0) 05/14/17 05:00 Eos % 0.6 % (0.9-2.9) L 05/14/17 05:00 Baso % 0.6 % (0.2-1.0) 05/14/17 05:00 Neut # 1.3 x10^3/uL (2.2-4.8) L 05/14/17 05:00 Lymph # 1.4 X10^3/uL (1.3-2.9) 05/14/17 05:00 [place] # 0.3 x10^3/uL (0.3-0.8) 05/14/17 05:00 Eos # 0.0 x10^3/uL (0.0-0.2) 05/14/17 05:00 Baso # 0.0 X10^3/uL (0.0-0.1) 05/14/17 05:00 Absolute Nucleated RBC 0.3 /100WBC 05/14/17 05:00 INR Target Range - 05/09/17 10:36 INR 1.82 (0.8-1.3) H 05/09/17 10:36 PTT 27.1 SECONDS (22.9-36.5) 05/09/17 10:36 PTT Comment - 05/09/17 10:36 D-Dimer 3130 ng/mL (0-400) H* 05/09/17 10:36 Sodium 136 mmol/L (136-145) 05/14/17 05:00 Corrected Sodium TNP 05/14/17 05:00 Potassium 4.4 mmol/L (3.5-5.1) 05/14/17 05:00 Chloride 102 mmol/L (98-107) 05/14/17 05:00 Carbon Dioxide 23.1 mmol/L (21-32) 05/14/17 05:00 BUN 20 mg/dL (7-18) H 05/14/17 05:00 Creatinine 0.95 mg/dL (0.70-1.30) 05/14/17 05:00 Est GFR (MDRD) Af Amer > 60 (>60) 05/14/17 05:00 Est GFR (MDRD) Non-Af > 60 (>60) 05/14/17 05:00 Glucose 95 mg/dL (65-99) 05/14/17 05:00 Calcium 9.1 mg/dL (8.5-10.1) 05/14/17 05:00 Corrected Calcium 9.7 mg/dL (8.5-10.1) 05/14/17 05:00 Magnesium 1.8 mg/dL (1.7-2.9) 05/11/17 04:50 Total Bilirubin 1.10 mg/dL (0.2-1.0) H 05/14/17 05:00 AST 64 Units/L (15-37) H 05/14/17 05:00 ALT 55 Units/L (12-78) 05/14/17 05:00 Alkaline Phosphatase 85 Units/L (46-116) 05/14/17 05:00 Creatine Kinase 74 Units/L (39-308) 05/10/17 08:14 CK-MB (CK-2) 1.1 ng/mL (0-4.0) 05/10/17 08:14 CK/CKMB % Calc 1.5 % (<4) 05/10/17 08:14 Troponin I 0.18 ng/mL (0-1.5) 05/10/17 08:14 B-Natriuretic Peptide 1090 pg/mL (0-79) H* 05/11/17 04:50 Total Protein 6.2 g/dL (6.4-8.2) L 05/14/17 05:00 Albumin 3.3 g/dL (3.4-5.0) L 05/14/17 05:00 Globulin 2.9 g/dL (2.5-4.5) 05/14/17 05:00 Albumin/Globulin Ratio 1.1 Ratio (1.1-2.1) 05/14/17 05:00 Triglycerides 33 mg/dL (0-150) 05/10/17 05:20 Cholesterol 76 mg/dL (0-200) 05/10/17 05:20 LDL Cholesterol, Calc 38 mg/dL (0-100) 05/10/17 05:20 HDL Cholesterol 31 mg/dL (40-60) L 05/10/17 05:20 Cholesterol/HDL Ratio 2.5 (0.0-5.0) 05/10/17 05:20 Specimen Type Random urine 05/09/17 13:45 Urine Color Yellow (YELLOW) 05/09/17 13:45 Urine Appearance Clear (CLEAR) 05/09/17 13:45 Urine pH 5.0 (5.0 - 8.0) 05/09/17 13:45 Ur Specific [place] 1.015 (1.000-1.030) 05/09/17 13:45 Urine Protein 2+ (NEGATIVE) 05/09/17 13:45 Urine Glucose (UA) Negative (NEGATIVE) 05/09/17 13:45 Urine Ketones Negative (NEGATIVE) 05/09/17 13:45 Urine Occult Blood 1+ (NEGATIVE) 05/09/17 13:45 Urine Nitrite Negative (NEGATIVE) 05/09/17 13:45 Urine Bilirubin Negative (NEGATIVE) 05/09/17 13:45 Urine Urobilinogen Normal (NORMAL) 05/09/17 13:45 Ur Leukocyte Esterase Negative (NEGATIVE) 05/09/17 13:45 Urine RBC Rare /HPF (NEGATIVE) 05/09/17 13:45 Urine WBC Rare /HPF (NEGATIVE) 05/09/17 13:45 Ur Squamous Epith Cells Rare /HPF (NEGATIVE) 05/09/17 13:45 Urine Bacteria Negative /HPF (NEGATIVE) 05/09/17 13:45 Ur Culture Indicated? No/not indicated 05/09/17 13:45 Digoxin 0.72 ng/mL (0.9-2) L 05/14/17 05:00 H. pylori IgG Antibody Negative (NEGATIVE) 05/09/17 10:36 - Plan (1) CHF exacerbation Status: Acute Qualifiers: Congestive heart failure type: unspecified congestive heart failure type Qualified Code(s): I50.9 - Heart failure, unspecified Plan: lasix 20mg iv bid, digoxin 0.125mg po daily, continue lisinopril 5mg po daily, continue aldactone 25mg po daily, continue to monitor labs and chest xray (2) Chest pain, rule out acute myocardial infarction Status: Acute Plan: nitrostat 0.4mg sl q5m prn, telemetry, supplemental oxygen, continue to monitor (3) Abdominal pain Status: Acute Qualifiers: Abdominal location: generalized Qualified Code(s): R10.84 - Generalized abdominal pain Plan: OBTAIN KUB, NPO, ZOFRAN 4MG Q8H PRN NAUSEA, PROTONIX 40MG IVP DAILY, ZANTAC 150MG PO DAILY, CONTINUE TO MONITOR (4) Hypertension Status: Chronic Qualifiers: Hypertension type: essential hypertension Qualified Code(s): I10 - Essential (primary) hypertension Plan: CONTINUE LISINOPRIL 5MG PO DAILY, CONTINUE TO MONITOR (5) COPD (chronic obstructive pulmonary disease) Status: Chronic Qualifiers: COPD type: chronic bronchitis Chronic bronchitis type: unspecified Qualified Code(s): J42 - Unspecified chronic bronchitis Plan: CONTINUE TO MONITOR (6) Hypoproteinemia Status: Acute Plan: procalamine at 40ml/hr, continue to monitor (7) Hypoalbuminemia Status: Acute Plan: albumin 25% iv daily, continue to monitor
[2017-05-14] MEDS: ZOFRAN TAB 4 MG PO PRN (17:43)
[2017-05-14] MEDS: PROCALAMINE 3 % 1,000 ML IV SCH (17:46)
--- NOTE | 2017-05-14 21:39 | PCM.PROG ---
Progress Note - Progress Note for Day of Date: 05/13/17 - Subjective Subjective: WAS ADMITTED FOR CHEST PAIN AND CHF EXACERBATION. TODAY, HE IS ALERT AND ORIENTED, SITTING UP IN BED ON MORNING ROUNDS. HE CONTINUES WITH COMPLAINTS OF ABDOMINAL PAIN AND SHORTNESS OF BREATH. HE REPORTS THAT SHORTNESS OF BREATH IS SLIGHTLY IMPROVED SINCE YESTERDAY. HE CONTINUES WITH NON- PRODUCTIVE COUGH BUT DENIES CHEST PAIN THIS MORNING. ON EXAMINATION, LUNG SOUNDS CONTINUE TO BE DIMINSHED. ABDOMEN IS ROUND, SOFT, AND NOTED WITH DIFFUSE TENDERNESS. NORMAL BOWEL SOUNDS NOTED IN ALL QUADRANTS. HE IS UTILIZING OXYGEN VIA NASAL CANNULA AT 2L/MIN. BILATERAL LOWER EXTREMITIES CONTINUE WITH EDEMA, BUT ARE IMPROVING. HIS VITAL SIGNS THIS MORNING ARE 98.0-71-20-98%-166/84. ABNORMAL LAB VALUES INCLUDE THE FOLLOWING: WBC 3.1, RBC 2.92, HGB 8.4, HCT 25.4 , AST 71, TOTAL PROTEIN 6.8, ALBUMIN 3.1, DIGOXIN <0.30. A CHEST XRAY WAS OBTAINED THIS MORNING AND REPORTED CARDIOMEGALY WITHOUT CONGESTIVE HEART FAILURE. DECREASING BILATERAL PLEURAL EFFUSIONS. NO INFILTRATES. PATIENT REMAINS NPO TODAY, HE CONTINUES WITH ABDOMINAL PAIN AND HAS NOT HAD A BOWEL MOVEMENT. WE WILL CONSULT PHYSICAL THERAPY TODAY, PATIENT CONTINUES WITH WEAKNESS. OTHERWISE, WE WILL CONTINUE WITH CURRENT PLAN OF CARE TODAY. WE WILL FOLLOW UP WITH AM LABS AND CONTINUE TO MONITOR PATIENT. - Past Medical Family Social History Past Med/Fam/Surg Hx: No changes since H&P Allergies: Allergies No Known Drug Allergies Allergy (Verified 04/27/17 22:46) - Review of Systems ROS: No change since H&P - Vital Signs and I&O's Vital Signs: Temperature 97.8 F Pulse Rate [Left Brachial] 69 Pulse Rate 70 Respiratory Rate 18 Blood Pressure [Right Arm] 168/74 Blood Pressure [Left Arm] 159/90 Blood Pressure 171/102 O2 Sat by Pulse Oximetry 97 Intake and Output: Intake & Output 05/12/17 05/13/17 05/14/17 05/15/17 11:59 11:59 11:59 11:59 Intake Total 1640 460 970 760 Output Total 300 1700 1150 Balance 1340 -1240 -180 760 - Physical Exam Oriented: Normal Eyes: Normal. negative: Blurred Vision, Diplopia, Discharge, Pain, Redness, Photophobia, Other Ear: Normal. negative: Right, Left, Swelling, Ecchymosis, Hemotypanum, Abrasion , Laceration Nose: Normal. negative: Injected, Discharge, Blood, Other Throat: Normal Respiratory: Right, Left, Generalized, Diminished Cardiovascular: Normal, Edema : Normal Auscultation: Bowel Sounds: Normal Palpation: Normal Tenderness: Diffuse, Moderate Skin: Normal Musculoskeletal: Instability Psychiatric: Normal Mood Description: Calm Affect: Normal Speech Pattern: Clear, Appropriate - Laboratory and Diagnostics Result Diagrams: 05/14/17 05:00 05/14/17 05:00 Labs: Laboratory WBC 3.1 X10^3/uL (3.6-10.0) L 05/14/17 05:00 RBC 2.96 X10^6/uL (4.7-6.0) L 05/14/17 05:00 Hgb 8.6 g/dL (13.5-18.0) L 05/14/17 05:00 Hct 25.8 % (42.0-54.0) L 05/14/17 05:00 MCV 87.3 fL (80.0-100.0) 05/14/17 05:00 MCH 29.1 pg (27.0-34.0) 05/14/17 05:00 MCHC 33.4 g/dL (33.0-35.0) 05/14/17 05:00 RDW 16.3 % (11.6-16.5) 05/14/17 05:00 Plt Count 112 X10^3/uL (150.0-450.0) L 05/14/17 05:00 MPV 10.3 fL (7.4-11.0) 05/14/17 05:00 Neut % 42.9 % (42.0-75.0) 05/14/17 05:00 Lymph % 45.3 % (21.0-51.0) 05/14/17 05:00 [place] % 10.6 % (0.0-13.0) 05/14/17 05:00 Eos % 0.6 % (0.9-2.9) L 05/14/17 05:00 Baso % 0.6 % (0.2-1.0) 05/14/17 05:00 Neut # 1.3 x10^3/uL (2.2-4.8) L 05/14/17 05:00 Lymph # 1.4 X10^3/uL (1.3-2.9) 05/14/17 05:00 [place] # 0.3 x10^3/uL (0.3-0.8) 05/14/17 05:00 Eos # 0.0 x10^3/uL (0.0-0.2) 05/14/17 05:00 Baso # 0.0 X10^3/uL (0.0-0.1) 05/14/17 05:00 Absolute Nucleated RBC 0.3 /100WBC 05/14/17 05:00 INR Target Range - 05/09/17 10:36 INR 1.82 (0.8-1.3) H 05/09/17 10:36 PTT 27.1 SECONDS (22.9-36.5) 05/09/17 10:36 PTT Comment - 05/09/17 10:36 D-Dimer 3130 ng/mL (0-400) H* 05/09/17 10:36 Sodium 136 mmol/L (136-145) 05/14/17 05:00 Corrected Sodium TNP 05/14/17 05:00 Potassium 4.4 mmol/L (3.5-5.1) 05/14/17 05:00 Chloride 102 mmol/L (98-107) 05/14/17 05:00 Carbon Dioxide 23.1 mmol/L (21-32) 05/14/17 05:00 BUN 20 mg/dL (7-18) H 05/14/17 05:00 Creatinine 0.95 mg/dL (0.70-1.30) 05/14/17 05:00 Est GFR (MDRD) Af Amer > 60 (>60) 05/14/17 05:00 Est GFR (MDRD) Non-Af > 60 (>60) 05/14/17 05:00 Glucose 95 mg/dL (65-99) 05/14/17 05:00 Calcium 9.1 mg/dL (8.5-10.1) 05/14/17 05:00 Corrected Calcium 9.7 mg/dL (8.5-10.1) 05/14/17 05:00 Magnesium 1.8 mg/dL (1.7-2.9) 05/11/17 04:50 Total Bilirubin 1.10 mg/dL (0.2-1.0) H 05/14/17 05:00 AST 64 Units/L (15-37) H 05/14/17 05:00 ALT 55 Units/L (12-78) 05/14/17 05:00 Alkaline Phosphatase 85 Units/L (46-116) 05/14/17 05:00 Creatine Kinase 74 Units/L (39-308) 05/10/17 08:14 CK-MB (CK-2) 1.1 ng/mL (0-4.0) 05/10/17 08:14 CK/CKMB % Calc 1.5 % (<4) 05/10/17 08:14 Troponin I 0.18 ng/mL (0-1.5) 05/10/17 08:14 B-Natriuretic Peptide 1090 pg/mL (0-79) H* 05/11/17 04:50 Total Protein 6.2 g/dL (6.4-8.2) L 05/14/17 05:00 Albumin 3.3 g/dL (3.4-5.0) L 05/14/17 05:00 Globulin 2.9 g/dL (2.5-4.5) 05/14/17 05:00 Albumin/Globulin Ratio 1.1 Ratio (1.1-2.1) 05/14/17 05:00 Triglycerides 33 mg/dL (0-150) 05/10/17 05:20 Cholesterol 76 mg/dL (0-200) 05/10/17 05:20 LDL Cholesterol, Calc 38 mg/dL (0-100) 05/10/17 05:20 HDL Cholesterol 31 mg/dL (40-60) L 05/10/17 05:20 Cholesterol/HDL Ratio 2.5 (0.0-5.0) 05/10/17 05:20 Specimen Type Random urine 05/09/17 13:45 Urine Color Yellow (YELLOW) 05/09/17 13:45 Urine Appearance Clear (CLEAR) 05/09/17 13:45 Urine pH 5.0 (5.0 - 8.0) 05/09/17 13:45 Ur Specific [place] 1.015 (1.000-1.030) 05/09/17 13:45 Urine Protein 2+ (NEGATIVE) 05/09/17 13:45 Urine Glucose (UA) Negative (NEGATIVE) 05/09/17 13:45 Urine Ketones Negative (NEGATIVE) 05/09/17 13:45 Urine Occult Blood 1+ (NEGATIVE) 05/09/17 13:45 Urine Nitrite Negative (NEGATIVE) 05/09/17 13:45 Urine Bilirubin Negative (NEGATIVE) 05/09/17 13:45 Urine Urobilinogen Normal (NORMAL) 05/09/17 13:45 Ur Leukocyte Esterase Negative (NEGATIVE) 05/09/17 13:45 Urine RBC Rare /HPF (NEGATIVE) 05/09/17 13:45 Urine WBC Rare /HPF (NEGATIVE) 05/09/17 13:45 Ur Squamous Epith Cells Rare /HPF (NEGATIVE) 05/09/17 13:45 Urine Bacteria Negative /HPF (NEGATIVE) 05/09/17 13:45 Ur Culture Indicated? No/not indicated 05/09/17 13:45 Digoxin 0.72 ng/mL (0.9-2) L 05/14/17 05:00 H. pylori IgG Antibody Negative (NEGATIVE) 05/09/17 10:36 - Plan (1) CHF exacerbation Status: Acute Qualifiers: Congestive heart failure type: unspecified congestive heart failure type Qualified Code(s): I50.9 - Heart failure, unspecified Plan: lasix 20mg iv bid, digoxin 0.125mg po daily, continue lisinopril 5mg po daily, continue aldactone 25mg po daily, continue to monitor labs and chest xray (2) Chest pain, rule out acute myocardial infarction Status: Acute Plan: nitrostat 0.4mg sl q5m prn, telemetry, supplemental oxygen, continue to monitor (3) Abdominal pain Status: Acute Qualifiers: Abdominal location: generalized Qualified Code(s): R10.84 - Generalized abdominal pain Plan: NPO, ZOFRAN 4MG Q8H PRN NAUSEA, PROTONIX 40MG IVP DAILY, ZANTAC 150MG PO DAILY, CONTINUE TO MONITOR (4) Hypertension Status: Chronic Qualifiers: Hypertension type: essential hypertension Qualified Code(s): I10 - Essential (primary) hypertension Plan: CONTINUE LISINOPRIL 5MG PO DAILY, CONTINUE TO MONITOR (5) COPD (chronic obstructive pulmonary disease) Status: Chronic Qualifiers: COPD type: chronic bronchitis Chronic bronchitis type: unspecified Qualified Code(s): J42 - Unspecified chronic bronchitis Plan: CONTINUE TO MONITOR (6) Hypoproteinemia Status: Acute Plan: procalamine at 40ml/hr, continue to monitor (7) Hypoalbuminemia Status: Acute Plan: albumin 25% iv daily, continue to monitor
[2017-05-15] MEDS: MILK OF MAGNESIA PO SCH ×5 (05:13→20:50)
[2017-05-15] MEDS: NS + KCL 40 MEQ/L 1,000 ML IV SCH (05:13)
[2017-05-15 05:49] LABS: ALANINE AMINOTRANSFERASE 45 Units/L (12-78); ALBUMIN 3.6 g/dL (3.4-5.0); ALKALINE PHOSPHATASE 86 Units/L (46-116); ASPARTATE AMINO TRANSFERASE 44 Units/L (15-37); BLOOD UREA NITROGEN 19 mg/dL (7-18); CALCIUM 8.8 mg/dL (8.5-10.1); CARBON DIOXIDE 24.5 mmol/L (21-32); CHLORIDE 102 mmol/L (98-107); CREATININE 0.91 mg/dL (0.70-1.30); DIGOXIN 0.49 ng/mL (0.9-2); SODIUM 136 mmol/L (136-145); TOTAL PROTEIN 6.5 g/dL (6.4-8.2); eGFR BLACK RACES > 60 (>60); eGFR NON BLACK RACES > 60 (>60)
[2017-05-15 05:58] LABS: BASOPHILS % (AUTO) 0.4 % (0.2-1.0); EOSINOPHILS % (AUTO) 0.4 % (0.9-2.9); HEMATOCRIT 25.2 % (42.0-54.0); HEMOGLOBIN 8.5 g/dL (13.5-18.0); LYMPHOCYTES # (AUTO) 1.6 X10^3/uL (1.3-2.9); MEAN CORPUSCULAR HEMOGLOBIN 29.2 pg (27.0-34.0); MEAN CORPUSCULAR HGB CONC 33.7 g/dL (33.0-35.0); MEAN CORPUSCULAR VOLUME 86.7 fL (80.0-100.0); MEAN PLATELET VOLUME 10.5 fL (7.4-11.0); MONOCYTES # (AUTO) 0.4 x10^3/uL (0.3-0.8); MONOCYTES % (AUTO) 10.2 % (0.0-13.0); NEUTROPHILS # (AUTO) 1.6 x10^3/uL (2.2-4.8); PLATELET COUNT 108 X10^3/uL (150.0-450.0); RED BLOOD COUNT 2.91 X10^6/uL (4.7-6.0); RED CELL DISTRIBUTION WIDTH 16.6 % (11.6-16.5); WHITE BLOOD COUNT 3.6 X10^3/uL (3.6-10.0)
--- NOTE | 2017-05-15 07:23 | RAD ---
History: CHF and shortness of breath Study: Portable AP chest Comparison: Yesterday Findings: There is unchanged moderate to severe cardiomegaly with intact pacemaker wire leads from th e left. There is an unchanged catheter via the right jugular vein with the tip in the SVC. There is p ersistent density at the left lung base behind the heart which obscures the left hemidiaphragm. The c ostophrenic angles are indistinct. There is no significant vascular congestion. Impression: 1. Unchanged moderate to severe cardiomegaly 2. Probable small pleural effusions. Unchanged retrocardiac density at the left lung base that may re present fluid or atelectasis or basilar consolidation. Reported By:
--- NOTE | 2017-05-15 07:24 | RAD ---
History: Abdominal pain Study: KUB Comparison: May 11 Findings: The bowel gas pattern is within normal limits, improved from May 11. There are bindu cystectomy clips. There are degenerative changes of the lower lumbar spine. Impression: No acute disease Reported By:
[2017-05-15] MEDS: ALBUMIN HUMAN 25%- 100ML 100 ML IV SCH (08:59)
[2017-05-15] MEDS: NORCO 5/325 MG TAB PO PRN ×3 (09:00→20:49)
[2017-05-15] MEDS: LANOXIN PO SCH (09:00)
[2017-05-15] MEDS: ZESTRIL TAB 5 MG PO SCH (09:00)
[2017-05-15] MEDS: ALDACTONE TAB 25 MG PO SCH (09:00)
[2017-05-15] MEDS: LASIX IVP SCH ×2 (09:00→20:50)
[2017-05-15] MEDS: PROTONIX INJ 40 MG VIAL IVP SCH (09:00)
[2017-05-15] MEDS: LOVENOX INJ 60 MG SYR SC SCH ×2 (09:01→20:53)
[2017-05-15] MEDS: MIRALAX POWDER (1 DOSE 17GM) PO SCH (09:01)
[2017-05-15] MEDS: MEGACE PO SCH ×2 (09:01→20:50)
[2017-05-15] MEDS: ZANTAC PO SCH (09:02)
[2017-05-15] MEDS ORDERED: POTASSIUM CHL 40 MEQ/NS 0.45% 500 ML 40 MEQ/500 ML BAG IV PRN (13:40)
[2017-05-15] MEDS ORDERED: POTASSIUM CHL 60 MEQ/NS 0.45% 500 ML 60 MEQ/500 ML BAG IV PRN (13:41)
[2017-05-15] MEDS: COLACE CAP 100 MG PO SCH (20:49)
[2017-05-15] MEDS: ATIVAN TAB 1 MG PO PRN (20:49)
[2017-05-15] MEDS: ROBITUSSIN DM PO PRN (20:50)
[2017-05-16 06:11] LABS: BASOPHILS % (AUTO) 0.6 % (0.2-1.0); EOSINOPHILS % (AUTO) 0.6 % (0.9-2.9); HEMATOCRIT 24.9 % (42.0-54.0); HEMOGLOBIN 8.5 g/dL (13.5-18.0); LYMPHOCYTES # (AUTO) 1.6 X10^3/uL (1.3-2.9); LYMPHOCYTES % (AUTO) 45.9 % (21.0-51.0); MEAN CORPUSCULAR HEMOGLOBIN 29.3 pg (27.0-34.0); MEAN CORPUSCULAR HGB CONC 34.2 g/dL (33.0-35.0); MEAN CORPUSCULAR VOLUME 85.7 fL (80.0-100.0); MEAN PLATELET VOLUME 10.3 fL (7.4-11.0); MONOCYTES # (AUTO) 0.3 x10^3/uL (0.3-0.8); MONOCYTES % (AUTO) 8.6 % (0.0-13.0); NEUTROPHILS # (AUTO) 1.6 x10^3/uL (2.2-4.8); NEUTROPHILS % (AUTO) 44.3 % (42.0-75.0); PLATELET COUNT 101 X10^3/uL (150.0-450.0); RED CELL DISTRIBUTION WIDTH 16.5 % (11.6-16.5); WHITE BLOOD COUNT 3.5 X10^3/uL (3.6-10.0)
[2017-05-16 06:32] LABS: ALANINE AMINOTRANSFERASE 38 Units/L (12-78); ALBUMIN 3.8 g/dL (3.4-5.0); ALKALINE PHOSPHATASE 81 Units/L (46-116); ASPARTATE AMINO TRANSFERASE 38 Units/L (15-37); BLOOD UREA NITROGEN 18 mg/dL (7-18); CALCIUM 8.6 mg/dL (8.5-10.1); CARBON DIOXIDE 22.7 mmol/L (21-32); CHLORIDE 104 mmol/L (98-107); CREATININE 0.97 mg/dL (0.70-1.30); DIGOXIN 0.81 ng/mL (0.9-2); SODIUM 138 mmol/L (136-145); TOTAL PROTEIN 6.6 g/dL (6.4-8.2); eGFR BLACK RACES > 60 (>60); eGFR NON BLACK RACES > 60 (>60)
[2017-05-16] MEDS: NS + KCL 40 MEQ/L 1,000 ML IV SCH ×3 (06:32→22:35)
[2017-05-16] MEDS: NORCO 5/325 MG TAB PO PRN (06:35)
--- NOTE | 2017-05-16 06:51 | RAD ---
Chest, one-view Indication: CHF, shortness of breath Comparison: 05/15/2017 Findings: There is stable cardiomegaly without congestive failure. Left-sided AICD is unchanged. Righ t IJ CVL appears well positioned without pneumothorax. There are stable small layering bilateral effu sions and adjacent bibasilar opacities. No new focal infiltrate is identified. No acute osseous abnor mality is seen. Impression: Stable cardiomegaly and small layering bilateral effusions. No new abnormality since prior exam. Reported By:
[2017-05-16] MEDS: ALBUMIN HUMAN 25%- 100ML 100 ML IV SCH (08:13)
[2017-05-16] MEDS: MIRALAX POWDER (1 DOSE 17GM) PO SCH (08:14)
[2017-05-16] MEDS: ATIVAN TAB 1 MG PO PRN (08:14)
[2017-05-16] MEDS: ZESTRIL TAB 5 MG PO SCH (08:14)
[2017-05-16] MEDS: ZANTAC PO SCH (08:15)
[2017-05-16] MEDS: LASIX IVP SCH ×2 (08:15→21:56)
[2017-05-16] MEDS: MILK OF MAGNESIA PO SCH ×4 (08:16→21:56)
[2017-05-16] MEDS: ALDACTONE TAB 25 MG PO SCH (08:16)
[2017-05-16] MEDS: PROTONIX INJ 40 MG VIAL IVP SCH (08:17)
[2017-05-16] MEDS: LANOXIN PO SCH (08:23)
[2017-05-16] MEDS: MEGACE PO SCH ×2 (08:23→21:56)
[2017-05-16] MEDS: LOVENOX INJ 60 MG SYR SC SCH ×2 (08:24→22:01)
--- NOTE | 2017-05-16 16:11 | RAD ---
Examination: KUB History: Abdominal pain Comparison reference: 05/15/2017 Findings: There is increasing selective small-bowel dilatation with a paucity of colon gas. There is a hazy density over the flanks and pelvis. No pathologic calcification or discrete mass is seen. Impression: Increasing intestinal distention, primarily small bowel. Although this could represent an ileus, the possibility of a developing intestinal obstruction should be clinically considered. The h azy opacity over the abdomen and pelvis is suggestive of associated ascites. Follow-up imaging with C T may be appropriate. Reported By:
--- NOTE | 2017-05-16 16:24 | CT ---
HISTORY: Altered mental status. History of hypertension, HIV, and hepatitis-C. Study: CT brain without contrast Comparison: None. Technique: Multiple axial images of the brain were obtained from the skull base to the vertex without administra tion of IV contrast. Dose reduction techniques including Automated Exposure Control (AEC) and adjust ment of mA and kV were utilized. Findings: Age-related cortical atrophy and chronic small vessel ischemic changes. 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 No acute intraparenchymal hemorrhage or mass can be identified. No extra-axial fluid collections are seen. No alteration in the attenuation of the brain parenchyma can be identified to suggest acute or subacu te ischemic change. The ventricular system is symmetric and nondilated. The extracranial structures are grossly unremarkable. IMPRESSION: No obvious acute intracranial pathology. If clinically concerned for acute ischemia/infar ction, MRI brain is more sensitive. Reported By:
[2017-05-16] MEDS ORDERED: NS 50 ML IV 50 ML IV ONE (17:39)
[2017-05-16] MEDS: PROCALAMINE 3 % 1,000 ML IV SCH (17:50)
[2017-05-16] MEDS: ATIVAN INJ 2 MG VIAL IVP PRN (21:48)
[2017-05-16] MEDS: MORPHINE SULFATE INJ 2 MG INJ IVP PRN (21:58)
[2017-05-16] MEDS: COLACE CAP 100 MG PO SCH (22:32)
[2017-05-17] MEDS: MORPHINE SULFATE INJ 2 MG INJ IVP PRN ×2 (06:28→20:28)
[2017-05-17] MEDS ORDERED: D5 LR IV ONE (07:21)
[2017-05-17] MEDS: ALBUMIN HUMAN 25%- 100ML 100 ML IV SCH (09:44)
[2017-05-17] MEDS: D5 LR 1000 ML 1,000 ML IV SCH ×2 (09:57→18:24)
[2017-05-17 10:22] LABS: BASOPHILS % (AUTO) 0.5 % (0.2-1.0); HEMATOCRIT 32.6 % (42.0-54.0); HEMOGLOBIN 9.9 g/dL (13.5-18.0); LYMPHOCYTES # (AUTO) 0.7 X10^3/uL (1.3-2.9); LYMPHOCYTES % (AUTO) 10.4 % (21.0-51.0); MEAN CORPUSCULAR HEMOGLOBIN 28.8 pg (27.0-34.0); MEAN CORPUSCULAR HGB CONC 30.5 g/dL (33.0-35.0); MEAN CORPUSCULAR VOLUME 94.4 fL (80.0-100.0); MEAN PLATELET VOLUME 11.6 fL (7.4-11.0); MONOCYTES # (AUTO) 0.3 x10^3/uL (0.3-0.8); MONOCYTES % (AUTO) 3.6 % (0.0-13.0); NEUTROPHILS # (AUTO) 6.1 x10^3/uL (2.2-4.8); NEUTROPHILS % (AUTO) 85.5 % (42.0-75.0); PLATELET COUNT 114 X10^3/uL (150.0-450.0); RED BLOOD COUNT 3.45 X10^6/uL (4.7-6.0); RED CELL DISTRIBUTION WIDTH 17.6 % (11.6-16.5); WHITE BLOOD COUNT 7.2 X10^3/uL (3.6-10.0)
[2017-05-17] MEDS: LANOXIN PO SCH (10:23)
[2017-05-17] MEDS: ALDACTONE TAB 25 MG PO SCH (10:23)
[2017-05-17] MEDS: MEGACE PO SCH ×2 (10:24→20:40)
[2017-05-17] MEDS: MILK OF MAGNESIA PO SCH ×4 (10:24→20:40)
[2017-05-17] MEDS: ZESTRIL TAB 5 MG PO SCH (10:25)
[2017-05-17] MEDS: MIRALAX POWDER (1 DOSE 17GM) PO SCH (10:25)
[2017-05-17] MEDS: ZANTAC PO SCH (10:26)
[2017-05-17] MEDS: LASIX IVP SCH ×2 (10:27→23:13)
[2017-05-17] MEDS: LOVENOX INJ 60 MG SYR SC SCH ×2 (10:27→20:39)
[2017-05-17] MEDS: PROTONIX INJ 40 MG VIAL IVP SCH (10:28)
--- NOTE | 2017-05-17 10:49 | CT ---
HISTORY: Increasing abdominal distention. Study: CT abdomen and pelvis without contrast Comparison: KUB dated May 16, 2017. Technique: Multiple axial images of the abdomen and pelvis were obtained from the lung bases to the pubic symphy sis without the administration of IV contrast. Dose reduction techniques including Automated Exposur e Control (AEC) and adjustment of mA and kV were utilized. Findings: Study limited secondary to lack of IV and oral contrast. Moderate-sized pleural effusions with associated compressive atelectasis versus early infiltrate. Car diomegaly. The visualized liver, spleen, pancreas, adrenals, and kidneys appear normal. The gallblad naida is surgically absent. Moderate amount of free fluid in within the abdomen that is nonspecific. N o obvious free air or pathologic lymphadenopathy. Lack of oral contrast and collapse of the majority of the bowel loops limits evaluation. The large and small bowel is otherwise unremarkable. The urina ry bladder is grossly unremarkable. Degenerative changes of the spine. No aggressive osseous lesions. Scattered vascular calcifications. IMPRESSION: Moderate amount of nonspecific ascites. The visualized liver otherwise demonstrates a no rmal noncontrast appearance. Remaining exam is unremarkable. Reported By:
[2017-05-17] MEDS: CIPRO IV 400 MG PREMIX* 400 MG/200 ML IV.SOLN. IV SCH ×2 (11:04→20:28)
[2017-05-17] MEDS: FLAGYL IV PREMIX 500 MG BAG 500 MG/100 ML BAG IV SCH ×3 (11:04→20:37)
[2017-05-17 11:47] LABS: ALANINE AMINOTRANSFERASE 125 Units/L (12-78); ALBUMIN 4.8 g/dL (3.4-5.0); ALKALINE PHOSPHATASE 81 Units/L (46-116); ASPARTATE AMINO TRANSFERASE 338 Units/L (15-37); BLOOD UREA NITROGEN 33 mg/dL (7-18); CALCIUM 9.5 mg/dL (8.5-10.1); CHLORIDE 102 mmol/L (98-107); COR NA(FOR HYPERGLY) 138 mmol/L (136-145); CREATININE 1.92 mg/dL (0.70-1.30); SODIUM 137 mmol/L (136-145); TOTAL PROTEIN 7.5 g/dL (6.4-8.2); eGFR BLACK RACES 45 (>60); eGFR NON BLACK RACES 37 (>60)
[2017-05-17 12:15] LABS: CARBON DIOXIDE 11.3 mmol/L (21-32)
[2017-05-17] MEDS ORDERED: KAYEXALATE PR ONE (14:40)
[2017-05-17] MEDS ORDERED: NS 1000 ML 1,000 ML IV ONE (14:42)
--- NOTE | 2017-05-17 15:19 | RAD ---
HISTORY: 72-year-old male with shortness of breath. Study: Frontal view of the chest. Comparison: Chest radiograph 05/16/2017. Findings: Surgical and support devices are stable. The trachea is midline. The cardiac silhouette is stably enlarged. Mild improvement pattern wire ae ration with persistent but trace bilateral effusions. No pneumothorax. Soft tissues are unremarkable. Osseous structures are unremarkable. IMPRESSION: 1. Improved pattern of aeration with resolving effusions and no other significant interval change. Reported By:
[2017-05-17] MEDS: PROCALAMINE 3 % 1,000 ML IV SCH (18:15)
[2017-05-17] MEDS: ATIVAN INJ 2 MG VIAL IVP PRN (20:28)
[2017-05-17] MEDS: COLACE CAP 100 MG PO SCH (20:40)
[2017-05-18] MEDS: FLAGYL IV PREMIX 500 MG BAG 500 MG/100 ML BAG IV SCH (04:30)
[2017-05-18 05:18] LABS: BASOPHILS % (AUTO) 0.1 % (0.2-1.0); HEMATOCRIT 25.5 % (42.0-54.0); HEMOGLOBIN 8.5 g/dL (13.5-18.0); LYMPHOCYTES # (AUTO) 0.8 X10^3/uL (1.3-2.9); LYMPHOCYTES % (AUTO) 11.9 % (21.0-51.0); MEAN CORPUSCULAR HEMOGLOBIN 28.9 pg (27.0-34.0); MEAN CORPUSCULAR HGB CONC 33.2 g/dL (33.0-35.0); MEAN PLATELET VOLUME 10.5 fL (7.4-11.0); MONOCYTES # (AUTO) 0.4 x10^3/uL (0.3-0.8); MONOCYTES % (AUTO) 6.9 % (0.0-13.0); NEUTROPHILS # (AUTO) 5.2 x10^3/uL (2.2-4.8); NEUTROPHILS % (AUTO) 81.1 % (42.0-75.0); PLATELET COUNT 94 X10^3/uL (150.0-450.0); RED BLOOD COUNT 2.93 X10^6/uL (4.7-6.0); RED CELL DISTRIBUTION WIDTH 17.1 % (11.6-16.5); WHITE BLOOD COUNT 6.4 X10^3/uL (3.6-10.0)
[2017-05-18 05:27] LABS: ALANINE AMINOTRANSFERASE 168 Units/L (12-78); ALBUMIN 3.9 g/dL (3.4-5.0); ALKALINE PHOSPHATASE 76 Units/L (46-116); ASPARTATE AMINO TRANSFERASE 409 Units/L (15-37); BLOOD UREA NITROGEN 39 mg/dL (7-18); CALCIUM 9.1 mg/dL (8.5-10.1); CARBON DIOXIDE 23.5 mmol/L (21-32); CHLORIDE 106 mmol/L (98-107); COR NA(FOR HYPERGLY) 139 mmol/L (136-145); CREATININE 1.39 mg/dL (0.70-1.30); SODIUM 139 mmol/L (136-145); TOTAL PROTEIN 6.5 g/dL (6.4-8.2); eGFR BLACK RACES > 60 (>60); eGFR NON BLACK RACES 54 (>60)
[2017-05-18] MEDS: D5 LR 1000 ML 1,000 ML IV SCH ×2 (05:50→09:11)
[2017-05-18] MEDS ORDERED: VERSED 100 MG in NS 100 ML IV 80 ML IV PRN (08:39)
[2017-05-18] MEDS ORDERED: DURAGESIC 100 mcg/HR PATCH TD SCH (09:00)
--- NOTE | 2017-05-18 10:23 | PCM.PROG ---
Progress Note - Progress Note for Day of Date: 05/14/17 - Subjective Subjective: WAS ADMITTED FOR CHEST PAIN AND CHF EXACERBATION. TODAY, HE IS ALERT AND ORIENTED, SITTING UP IN BED ON MORNING ROUNDS. HE CONTINUES WITH COMPLAINTS OF ABDOMINAL PAIN AND SHORTNESS OF BREATH, HOWEVER, REPORTS THAT SYMPTOMS HAVE SLIGHTLY IMPROVED SINCE YESTERDAY. HE REPORTS THAT SHORTNESS OF BREATH IS SLIGHTLY IMPROVED SINCE YESTERDAY. HE CONTINUES WITH NON- PRODUCTIVE COUGH. ON EXAMINATION, LUNG SOUNDS CONTINUE TO BE DIMINSHED. ABDOMEN IS ROUND, SOFT, AND NOTED WITH MILD, DIFFUSE TENDERNESS. NORMAL BOWEL SOUNDS NOTED IN ALL QUADRANTS. HE IS UTILIZING OXYGEN VIA NASAL CANNULA AT 2L/MIN. HIS VITAL SIGNS THIS MORNING ARE 97.6-70-20-97%-178/80. ABNORMAL LAB VALUES INCLUDE THE FOLLOWING: WBC 3.1, RBC 2.96, HGB 8.6, HCT 25.8, BUN 20, TOTAL BILI 1.10, AST 64, TOTAL PROTEIN 6.2, ALBUMIN 3.3, DIGOXIN 0.72. A CHEST XRAY WAS OBTAINED THIS MORNING AND REPORTED UNCHANGED MODERATE TO SEVERE CARDIOMEGALY. PERSISTENT LEFT BASILAR DENSITY THAT MAY REPRESENT ATELECTASIS OR CONSOLIDATION WITH OR WITHOUT A PLEURAL EFFUSION. UNCHANGED SMALL RIGHT PLEURAL EFFUSION. WE WILL RESUME A FULL LIQUID DIET TODAY. PHYSICAL THERAPY CONTINUES TO WORK WITH PATIENT. OTHERWISE, WE WILL CONTINUE WITH CURRENT PLAN OF CARE. WE WILL FOLLOW UP WITH AM LABS AND CONTINUE TO MONITOR PATIENT. - Past Medical Family Social History Past Med/Fam/Surg Hx: No changes since H&P Allergies: Allergies No Known Drug Allergies Allergy (Verified 04/27/17 22:46) - Review of Systems ROS: No change since H&P - Vital Signs and I&O's Vital Signs: Temperature 97.6 F Pulse Rate [Left Brachial] 70 Pulse Rate 71 Respiratory Rate 20 Blood Pressure [Right Arm] 175/99 Blood Pressure [Left Arm] 141/81 Blood Pressure 171/102 O2 Sat by Pulse Oximetry 100 Intake and Output: Intake & Output 05/15/17 05/16/17 05/17/17 05/18/17 11:59 11:59 11:59 11:59 Intake Total 7780 997 9331 456 Output Total 320 875 Balance 820 -175 2598 456 - Physical Exam Oriented: Normal Eyes: Normal. negative: Blurred Vision, Diplopia, Discharge, Pain, Redness, Photophobia, Other Ear: Normal. negative: Right, Left, Swelling, Ecchymosis, Hemotypanum, Abrasion , Laceration Nose: Normal. negative: Injected, Discharge, Blood, Other Throat: Normal Respiratory: Right, Left, Generalized, Diminished Cardiovascular: Normal, Edema : Normal Auscultation: Bowel Sounds: Normal Tenderness: Diffuse, Mild Skin: Normal Musculoskeletal: Instability Psychiatric: Normal Mood Description: Calm Affect: Normal Speech Pattern: Unclear, Delayed - Laboratory and Diagnostics Result Diagrams: 05/18/17 04:18 05/18/17 04:18 Labs: 05/15/17 12:51 Sputum - Expectorated Sputum Sputum Culture - Final 05/15/17 12:51 Sputum - Expectorated Sputum - Final Laboratory WBC 6.4 X10^3/uL (3.6-10.0) 05/18/17 04:18 RBC 2.93 X10^6/uL (4.7-6.0) L 05/18/17 04:18 Hgb 8.5 g/dL (13.5-18.0) L 05/18/17 04:18 Hct 25.5 % (42.0-54.0) L 05/18/17 04:18 MCV 87.0 fL (80.0-100.0) 05/18/17 04:18 MCH 28.9 pg (27.0-34.0) 05/18/17 04:18 MCHC 33.2 g/dL (33.0-35.0) 05/18/17 04:18 RDW 17.1 % (11.6-16.5) H 05/18/17 04:18 Plt Count 94 X10^3/uL (150.0-450.0) L 05/18/17 04:18 MPV 10.5 fL (7.4-11.0) 05/18/17 04:18 Neut % 81.1 % (42.0-75.0) H 05/18/17 04:18 Lymph % 11.9 % (21.0-51.0) L 05/18/17 04:18 [place] % 6.9 % (0.0-13.0) 05/18/17 04:18 Eos % 0.0 % (0.9-2.9) L 05/18/17 04:18 Baso % 0.1 % (0.2-1.0) L 05/18/17 04:18 Neut # 5.2 x10^3/uL (2.2-4.8) H 05/18/17 04:18 Lymph # 0.8 X10^3/uL (1.3-2.9) L 05/18/17 04:18 [place] # 0.4 x10^3/uL (0.3-0.8) 05/18/17 04:18 Eos # 0.0 x10^3/uL (0.0-0.2) 05/18/17 04:18 Baso # 0.0 X10^3/uL (0.0-0.1) 05/18/17 04:18 Absolute Nucleated RBC 0.3 /100WBC 05/18/17 04:18 INR Target Range - 05/09/17 10:36 INR 1.82 (0.8-1.3) H 05/09/17 10:36 PTT 27.1 SECONDS (22.9-36.5) 05/09/17 10:36 PTT Comment - 05/09/17 10:36 D-Dimer 3130 ng/mL (0-400) H* 05/09/17 10:36 Sodium 139 mmol/L (136-145) 05/18/17 04:18 Corrected Sodium 139 mmol/L (136-145) 05/18/17 04:18 Potassium 5.4 mmol/L (3.5-5.1) H 05/18/17 04:18 Chloride 106 mmol/L (98-107) 05/18/17 04:18 Carbon Dioxide 23.5 mmol/L (21-32) 05/18/17 04:18 BUN 39 mg/dL (7-18) H 05/18/17 04:18 Creatinine 1.39 mg/dL (0.70-1.30) H 05/18/17 04:18 Est GFR (MDRD) Af Amer > 60 (>60) 05/18/17 04:18 Est GFR (MDRD) Non-Af 54 (>60) L 05/18/17 04:18 Glucose 119 mg/dL (65-99) H 05/18/17 04:18 POC Glucose (mg/dL) 120 mg/dL (65-99) H 05/17/17 09:53 Calcium 9.1 mg/dL (8.5-10.1) 05/18/17 04:18 Corrected Calcium TNP 05/18/17 04:18 Magnesium 1.8 mg/dL (1.7-2.9) 05/11/17 04:50 Total Bilirubin 0.90 mg/dL (0.2-1.0) 05/18/17 04:18 AST 409 Units/L (15-37) H 05/18/17 04:18 ALT 168 Units/L (12-78) H 05/18/17 04:18 Alkaline Phosphatase 76 Units/L (46-116) 05/18/17 04:18 Ammonia 16 umol/L (11-32) 05/17/17 10:45 Creatine Kinase 74 Units/L (39-308) 05/10/17 08:14 CK-MB (CK-2) 1.1 ng/mL (0-4.0) 05/10/17 08:14 CK/CKMB % Calc 1.5 % (<4) 05/10/17 08:14 Troponin I 0.18 ng/mL (0-1.5) 05/10/17 08:14 B-Natriuretic Peptide 1090 pg/mL (0-79) H* 05/11/17 04:50 Total Protein 6.5 g/dL (6.4-8.2) 05/18/17 04:18 Albumin 3.9 g/dL (3.4-5.0) 05/18/17 04:18 Globulin 2.6 g/dL (2.5-4.5) 05/18/17 04:18 Albumin/Globulin Ratio 1.5 Ratio (1.1-2.1) 05/18/17 04:18 Triglycerides 33 mg/dL (0-150) 05/10/17 05:20 Cholesterol 76 mg/dL (0-200) 05/10/17 05:20 LDL Cholesterol, Calc 38 mg/dL (0-100) 05/10/17 05:20 HDL Cholesterol 31 mg/dL (40-60) L 05/10/17 05:20 Cholesterol/HDL Ratio 2.5 (0.0-5.0) 05/10/17 05:20 Specimen Type Random urine 05/09/17 13:45 Urine Color Yellow (YELLOW) 05/09/17 13:45 Urine Appearance Clear (CLEAR) 05/09/17 13:45 Urine pH 5.0 (5.0 - 8.0) 05/09/17 13:45 Ur Specific [place] 1.015 (1.000-1.030) 05/09/17 13:45 Urine Protein 2+ (NEGATIVE) 05/09/17 13:45 Urine Glucose (UA) Negative (NEGATIVE) 05/09/17 13:45 Urine Ketones Negative (NEGATIVE) 05/09/17 13:45 Urine Occult Blood 1+ (NEGATIVE) 05/09/17 13:45 Urine Nitrite Negative (NEGATIVE) 05/09/17 13:45 Urine Bilirubin Negative (NEGATIVE) 05/09/17 13:45 Urine Urobilinogen Normal (NORMAL) 05/09/17 13:45 Ur Leukocyte Esterase Negative (NEGATIVE) 05/09/17 13:45 Urine RBC Rare /HPF (NEGATIVE) 05/09/17 13:45 Urine WBC Rare /HPF (NEGATIVE) 05/09/17 13:45 Ur Squamous Epith Cells Rare /HPF (NEGATIVE) 05/09/17 13:45 Urine Bacteria Negative /HPF (NEGATIVE) 05/09/17 13:45 Ur Culture Indicated? No/not indicated 05/09/17 13:45 Digoxin 0.81 ng/mL (0.9-2) L 05/16/17 04:34 H. pylori IgG Antibody Negative (NEGATIVE) 05/09/17 10:36 - Plan (1) CHF exacerbation Status: Acute Qualifiers: Congestive heart failure type: unspecified congestive heart failure type Qualified Code(s): I50.9 - Heart failure, unspecified Plan: lasix 20mg iv bid, digoxin 0.125mg po daily, continue lisinopril 5mg po daily, continue aldactone 25mg po daily, continue to monitor labs and chest xray (2) Chest pain, rule out acute myocardial infarction Status: Acute Plan: nitrostat 0.4mg sl q5m prn, telemetry, supplemental oxygen, continue to monitor (3) Abdominal pain Status: Acute Qualifiers: Abdominal location: generalized Qualified Code(s): R10.84 - Generalized abdominal pain Plan: CONTINUE ZOFRAN 4MG Q8H PRN NAUSEA, PROTONIX 40MG IVP DAILY, ZANTAC 150MG PO DAILY, CONTINUE TO MONITOR (4) Hypertension Status: Chronic Qualifiers: Hypertension type: essential hypertension Qualified Code(s): I10 - Essential (primary) hypertension Plan: CONTINUE LISINOPRIL 5MG PO DAILY, CONTINUE TO MONITOR (5) COPD (chronic obstructive pulmonary disease) Status: Chronic Qualifiers: COPD type: chronic bronchitis Chronic bronchitis type: unspecified Qualified Code(s): J42 - Unspecified chronic bronchitis Plan: CONTINUE TO MONITOR (6) Hypoproteinemia Status: Acute Plan: procalamine at 40ml/hr, continue to monitor (7) Hypoalbuminemia Status: Acute Plan: albumin 25% iv daily, continue to monitor
--- NOTE | 2017-05-18 10:30 | PCM.PROG ---
Progress Note - Progress Note for Day of Date: 05/15/17 - Subjective Subjective: WAS ADMITTED FOR CHEST PAIN AND CHF EXACERBATION. TODAY, HE IS ALERT AND ORIENTED, SITTING UP IN BED ON MORNING ROUNDS. HE DENIES ABDOMINAL PAIN THIS MORNING, BUT CONTINUES WITH SHORTNESS OF BREATH AND WEAKNESS. HE HAS A NON-PRODUCTIVE COUGH ON MORNING ROUNDS. ON EXAMINATION, LUNG SOUNDS CONTINUE TO BE DIMINSHED. ABDOMEN IS ROUND, SOFT, AND NON-TENDER. NORMAL BOWEL SOUNDS NOTED IN ALL QUADRANTS. HE IS UTILIZING OXYGEN VIA NASAL CANNULA AT 2L/MIN. HIS VITAL SIGNS THIS MORNING ARE 98.7-76-18-100%-158/88. ABNORMAL LAB VALUES INCLUDE THE FOLLOWING: RBC 2.91, HGB 8.5, HCT 25.2, BUN 19, AST 44, DIGOXIN 0.49. A CHEST XRAY WAS REPEATED THIS MORNING AND REPORTED UNCHANGED MODERATE TO SEVERE CARDIOMEGALY. PROBABLE SMALL PLEURAL EFFUSIONS. UNCHANGED RETROCARDIAC DENSITY AT THE LEFT LUNG BASE THAT MAY REPRESENT FLUID OR ATELECTASIS OR BASILAR CONSOLIDATION. A KUB WAS REPEATED AND REPORTED NO ACUTE DISEASE. PHYSICAL THERAPY CONTINUES TO WORK WITH PATIENT. WE SPOKE WITH PATIENT S SISTER TODAY. THEY ARE IN AGREEMENT WITH PLACEMENT AT [facility] DUE TO THE INABILITY TO SAFELY CARE FOR PATIENT AT HOME. WE WILL SPEAK WITH CASE MANAGEMENT ABOUT THIS. OTHERWISE, WE WILL CONTINUE WITH CURRENT PLAN OF CARE. WE WILL FOLLOW UP WITH AM LABS AND CONTINUE TO MONITOR PATIENT. - Past Medical Family Social History Past Med/Fam/Surg Hx: No changes since H&P Allergies: Allergies No Known Drug Allergies Allergy (Verified 04/27/17 22:46) - Review of Systems ROS: No change since H&P - Vital Signs and I&O's Vital Signs: Temperature 97.6 F Pulse Rate [Left Brachial] 70 Pulse Rate 71 Respiratory Rate 20 Blood Pressure [Right Arm] 175/99 Blood Pressure [Left Arm] 141/81 Blood Pressure 171/102 O2 Sat by Pulse Oximetry 100 Intake and Output: Intake & Output 05/15/17 05/16/17 05/17/17 05/18/17 11:59 11:59 11:59 11:59 Intake Total 2168 285 7026 456 Output Total 320 875 Balance 820 -175 2598 456 - Physical Exam Oriented: Normal Eyes: Normal. negative: Blurred Vision, Diplopia, Discharge, Pain, Redness, Photophobia, Other Ear: Normal. negative: Right, Left, Swelling, Ecchymosis, Hemotypanum, Abrasion , Laceration Nose: Normal. negative: Injected, Discharge, Blood, Other Throat: Normal Respiratory: Right, Left, Generalized, Diminished Cardiovascular: Normal, Edema : Normal Auscultation: Bowel Sounds: Normal Tenderness: Normal Skin: Normal Musculoskeletal: Instability Psychiatric: Normal Mood Description: Calm Affect: Normal Speech Pattern: Unclear, Delayed - Laboratory and Diagnostics Result Diagrams: 05/18/17 04:18 05/18/17 04:18 Labs: 05/15/17 12:51 Sputum - Expectorated Sputum Sputum Culture - Final 05/15/17 12:51 Sputum - Expectorated Sputum - Final Laboratory WBC 6.4 X10^3/uL (3.6-10.0) 05/18/17 04:18 RBC 2.93 X10^6/uL (4.7-6.0) L 05/18/17 04:18 Hgb 8.5 g/dL (13.5-18.0) L 05/18/17 04:18 Hct 25.5 % (42.0-54.0) L 05/18/17 04:18 MCV 87.0 fL (80.0-100.0) 05/18/17 04:18 MCH 28.9 pg (27.0-34.0) 05/18/17 04:18 MCHC 33.2 g/dL (33.0-35.0) 05/18/17 04:18 RDW 17.1 % (11.6-16.5) H 05/18/17 04:18 Plt Count 94 X10^3/uL (150.0-450.0) L 05/18/17 04:18 MPV 10.5 fL (7.4-11.0) 05/18/17 04:18 Neut % 81.1 % (42.0-75.0) H 05/18/17 04:18 Lymph % 11.9 % (21.0-51.0) L 05/18/17 04:18 [place] % 6.9 % (0.0-13.0) 05/18/17 04:18 Eos % 0.0 % (0.9-2.9) L 05/18/17 04:18 Baso % 0.1 % (0.2-1.0) L 05/18/17 04:18 Neut # 5.2 x10^3/uL (2.2-4.8) H 05/18/17 04:18 Lymph # 0.8 X10^3/uL (1.3-2.9) L 05/18/17 04:18 [place] # 0.4 x10^3/uL (0.3-0.8) 05/18/17 04:18 Eos # 0.0 x10^3/uL (0.0-0.2) 05/18/17 04:18 Baso # 0.0 X10^3/uL (0.0-0.1) 05/18/17 04:18 Absolute Nucleated RBC 0.3 /100WBC 05/18/17 04:18 INR Target Range - 05/09/17 10:36 INR 1.82 (0.8-1.3) H 05/09/17 10:36 PTT 27.1 SECONDS (22.9-36.5) 05/09/17 10:36 PTT Comment - 05/09/17 10:36 D-Dimer 3130 ng/mL (0-400) H* 05/09/17 10:36 Sodium 139 mmol/L (136-145) 05/18/17 04:18 Corrected Sodium 139 mmol/L (136-145) 05/18/17 04:18 Potassium 5.4 mmol/L (3.5-5.1) H 05/18/17 04:18 Chloride 106 mmol/L (98-107) 05/18/17 04:18 Carbon Dioxide 23.5 mmol/L (21-32) 05/18/17 04:18 BUN 39 mg/dL (7-18) H 05/18/17 04:18 Creatinine 1.39 mg/dL (0.70-1.30) H 05/18/17 04:18 Est GFR (MDRD) Af Amer > 60 (>60) 05/18/17 04:18 Est GFR (MDRD) Non-Af 54 (>60) L 05/18/17 04:18 Glucose 119 mg/dL (65-99) H 05/18/17 04:18 POC Glucose (mg/dL) 120 mg/dL (65-99) H 05/17/17 09:53 Calcium 9.1 mg/dL (8.5-10.1) 05/18/17 04:18 Corrected Calcium TNP 05/18/17 04:18 Magnesium 1.8 mg/dL (1.7-2.9) 05/11/17 04:50 Total Bilirubin 0.90 mg/dL (0.2-1.0) 05/18/17 04:18 AST 409 Units/L (15-37) H 05/18/17 04:18 ALT 168 Units/L (12-78) H 05/18/17 04:18 Alkaline Phosphatase 76 Units/L (46-116) 05/18/17 04:18 Ammonia 16 umol/L (11-32) 05/17/17 10:45 Creatine Kinase 74 Units/L (39-308) 05/10/17 08:14 CK-MB (CK-2) 1.1 ng/mL (0-4.0) 05/10/17 08:14 CK/CKMB % Calc 1.5 % (<4) 05/10/17 08:14 Troponin I 0.18 ng/mL (0-1.5) 05/10/17 08:14 B-Natriuretic Peptide 1090 pg/mL (0-79) H* 05/11/17 04:50 Total Protein 6.5 g/dL (6.4-8.2) 05/18/17 04:18 Albumin 3.9 g/dL (3.4-5.0) 05/18/17 04:18 Globulin 2.6 g/dL (2.5-4.5) 05/18/17 04:18 Albumin/Globulin Ratio 1.5 Ratio (1.1-2.1) 05/18/17 04:18 Triglycerides 33 mg/dL (0-150) 05/10/17 05:20 Cholesterol 76 mg/dL (0-200) 05/10/17 05:20 LDL Cholesterol, Calc 38 mg/dL (0-100) 05/10/17 05:20 HDL Cholesterol 31 mg/dL (40-60) L 05/10/17 05:20 Cholesterol/HDL Ratio 2.5 (0.0-5.0) 05/10/17 05:20 Specimen Type Random urine 05/09/17 13:45 Urine Color Yellow (YELLOW) 05/09/17 13:45 Urine Appearance Clear (CLEAR) 05/09/17 13:45 Urine pH 5.0 (5.0 - 8.0) 05/09/17 13:45 Ur Specific [place] 1.015 (1.000-1.030) 05/09/17 13:45 Urine Protein 2+ (NEGATIVE) 05/09/17 13:45 Urine Glucose (UA) Negative (NEGATIVE) 05/09/17 13:45 Urine Ketones Negative (NEGATIVE) 05/09/17 13:45 Urine Occult Blood 1+ (NEGATIVE) 05/09/17 13:45 Urine Nitrite Negative (NEGATIVE) 05/09/17 13:45 Urine Bilirubin Negative (NEGATIVE) 05/09/17 13:45 Urine Urobilinogen Normal (NORMAL) 05/09/17 13:45 Ur Leukocyte Esterase Negative (NEGATIVE) 05/09/17 13:45 Urine RBC Rare /HPF (NEGATIVE) 05/09/17 13:45 Urine WBC Rare /HPF (NEGATIVE) 05/09/17 13:45 Ur Squamous Epith Cells Rare /HPF (NEGATIVE) 05/09/17 13:45 Urine Bacteria Negative /HPF (NEGATIVE) 05/09/17 13:45 Ur Culture Indicated? No/not indicated 05/09/17 13:45 Digoxin 0.81 ng/mL (0.9-2) L 05/16/17 04:34 H. pylori IgG Antibody Negative (NEGATIVE) 05/09/17 10:36 - Plan (1) CHF exacerbation Status: Acute Qualifiers: Congestive heart failure type: unspecified congestive heart failure type Qualified Code(s): I50.9 - Heart failure, unspecified Plan: lasix 20mg iv bid, digoxin 0.125mg po daily, continue lisinopril 5mg po daily, continue aldactone 25mg po daily, continue to monitor labs and chest xray (2) Chest pain, rule out acute myocardial infarction Status: Acute Plan: nitrostat 0.4mg sl q5m prn, telemetry, supplemental oxygen, continue to monitor (3) Abdominal pain Status: Acute Qualifiers: Abdominal location: generalized Qualified Code(s): R10.84 - Generalized abdominal pain Plan: CONTINUE ZOFRAN 4MG Q8H PRN NAUSEA, PROTONIX 40MG IVP DAILY, ZANTAC 150MG PO DAILY, CONTINUE TO MONITOR (4) Hypertension Status: Chronic Qualifiers: Hypertension type: essential hypertension Qualified Code(s): I10 - Essential (primary) hypertension Plan: CONTINUE LISINOPRIL 5MG PO DAILY, CONTINUE TO MONITOR (5) COPD (chronic obstructive pulmonary disease) Status: Chronic Qualifiers: COPD type: chronic bronchitis Chronic bronchitis type: unspecified Qualified Code(s): J42 - Unspecified chronic bronchitis Plan: CONTINUE TO MONITOR (6) Hypoproteinemia Status: Acute Plan: procalamine at 40ml/hr, continue to monitor (7) Hypoalbuminemia Status: Acute Plan: albumin 25% iv daily, continue to monitor
--- NOTE | 2017-05-18 10:59 | PCM.PROG ---
Progress Note - Progress Note for Day of Date: 05/18/17 - Subjective Subjective: WAS ADMITTED FOR CHEST PAIN AND CHF EXACERBATION. PATIENT HAD A CHANGE IN STATUS OVER THE WEEKEND. HE WAS NOTED WITH ALTERED MENTAL STATUS AND ABDOMINAL DISTENTION. A CT OF THE BRAIN REPORTED NO OBVOUS ACUTE INTRACRANIAL PATHOLOGY. AN ABDOMINAL CT WITHOUT CONTRAST REPORTED MODERATE AMOUNT OF NONSPECIFIC ASCITES. TODAY, HE IS LYING IN BED WITH EYES CLOSED ON MORNING ROUNDS. HE IS DIFFICULT TO AROUSE AND IS UNRESPONSIVE TO STERNAL RUB. ON EXAMINATION, LUNG SOUNDS ARE NOTED WITH COURSE RHONCHI TO AUSCULTATION. ABDOMEN IS NOTED TO BE DISTENDED. NORMAL BOWEL SOUNDS NOTED IN ALL QUADRANTS. HE IS UTILIZING OXYGEN VIA NASAL CANNULA AT 2L/MIN. HIS VITAL SIGNS THIS MORNING ARE 97.6-70-20-100%-141/81. ABNORMAL LAB VALUES INCLUDE THE FOLLOWING: RBC 2.93, HGB 8.5, HCT 25.2, POTASSIUM DECREASED TO 5.4 FROM 7.6, BUN 39, CREATININE 1.39, AST 409, ALT 168. AST/ALT HAS INCREASED FROM YESTERDAYS VALUES OF 332/125. STAFF REPORTS THAT PATIENTS BLOOD SUGAR DROPPED INTO THE 20S -30S YESTERDAY. IT HAS REMAINED STABLET THROUGHOUT THE NIGHT. A CHEST XRAY WAS THAT WAS OBTAINED YESTERDAY REPORTED IMPROVED PATTERN OF AERATION WITH RESOLVING EFFUSIONS AND NO OTHER SIGNIFICANT INTERVAL CHANGE. WE SPOKE WITH PATIENTS SISTER TODAY REGARDING PATIENTS CONDITION. PATIENTS SISTER WISHES TO STOP ALL CURRENT TREATMENTS AND TO INITIATE PALLIATIVE CARE MEASURES. SHE WISHES TO KEEP PATIENT COMFORTABLE POSSIBLE. WE ARE IN AGREEMENT WITH HER WISHES. PATIENTS SISTER MADE PATIENT A FULL DNR YESTERDAY. WE WILL DISCONTINUE ALL MEDICATIONS BY MOUTH. WE WILL INITIATE ORDERS FOR PALLIATIVE CARE AND CONTINUE TO MONITOR PATIENT. - Past Medical Family Social History Past Med/Fam/Surg Hx: No changes since H&P Allergies: Allergies No Known Drug Allergies Allergy (Verified 04/27/17 22:46) - Review of Systems ROS: No change since H&P - Vital Signs and I&O's Vital Signs: Temperature 97.6 F Pulse Rate [Left Brachial] 70 Pulse Rate 71 Respiratory Rate 20 Blood Pressure [Right Arm] 175/99 Blood Pressure [Left Arm] 141/81 Blood Pressure 171/102 O2 Sat by Pulse Oximetry 100 Intake and Output: Intake & Output 05/15/17 05/16/17 05/17/17 05/18/17 11:59 11:59 11:59 11:59 Intake Total 8226 757 1829 456 Output Total 320 875 Balance 820 -175 2598 456 - Physical Exam Oriented: Unable to test Eyes: Normal. negative: Blurred Vision, Diplopia, Discharge, Pain, Redness, Photophobia, Other Ear: Normal. negative: Right, Left, Swelling, Ecchymosis, Hemotypanum, Abrasion , Laceration Nose: Normal. negative: Injected, Discharge, Blood, Other Throat: Normal Respiratory: Right, Left, Generalized, Diminished, Rhonchi Cardiovascular: Normal, Edema : Normal Auscultation: Bowel Sounds: Normal Palpation: Normal Tenderness: Normal Skin: Normal Musculoskeletal: Instability Psychiatric: Other (UNRESPONSIVE ) Mood Description: Calm Affect: Normal (UNRESPONSIVE ) Speech Pattern: Inappropriate (UNRESPONSIVE ) - Laboratory and Diagnostics Result Diagrams: 05/18/17 04:18 05/18/17 04:18 Labs: 05/15/17 12:51 Sputum - Expectorated Sputum Sputum Culture - Final 05/15/17 12:51 Sputum - Expectorated Sputum - Final Laboratory WBC 6.4 X10^3/uL (3.6-10.0) 05/18/17 04:18 RBC 2.93 X10^6/uL (4.7-6.0) L 05/18/17 04:18 Hgb 8.5 g/dL (13.5-18.0) L 05/18/17 04:18 Hct 25.5 % (42.0-54.0) L 05/18/17 04:18 MCV 87.0 fL (80.0-100.0) 05/18/17 04:18 MCH 28.9 pg (27.0-34.0) 05/18/17 04:18 MCHC 33.2 g/dL (33.0-35.0) 05/18/17 04:18 RDW 17.1 % (11.6-16.5) H 05/18/17 04:18 Plt Count 94 X10^3/uL (150.0-450.0) L 05/18/17 04:18 MPV 10.5 fL (7.4-11.0) 05/18/17 04:18 Neut % 81.1 % (42.0-75.0) H 05/18/17 04:18 Lymph % 11.9 % (21.0-51.0) L 05/18/17 04:18 [place] % 6.9 % (0.0-13.0) 05/18/17 04:18 Eos % 0.0 % (0.9-2.9) L 05/18/17 04:18 Baso % 0.1 % (0.2-1.0) L 05/18/17 04:18 Neut # 5.2 x10^3/uL (2.2-4.8) H 05/18/17 04:18 Lymph # 0.8 X10^3/uL (1.3-2.9) L 05/18/17 04:18 [place] # 0.4 x10^3/uL (0.3-0.8) 05/18/17 04:18 Eos # 0.0 x10^3/uL (0.0-0.2) 05/18/17 04:18 Baso # 0.0 X10^3/uL (0.0-0.1) 05/18/17 04:18 Absolute Nucleated RBC 0.3 /100WBC 05/18/17 04:18 INR Target Range - 05/09/17 10:36 INR 1.82 (0.8-1.3) H 05/09/17 10:36 PTT 27.1 SECONDS (22.9-36.5) 05/09/17 10:36 PTT Comment - 05/09/17 10:36 D-Dimer 3130 ng/mL (0-400) H* 05/09/17 10:36 Sodium 139 mmol/L (136-145) 05/18/17 04:18 Corrected Sodium 139 mmol/L (136-145) 05/18/17 04:18 Potassium 5.4 mmol/L (3.5-5.1) H 05/18/17 04:18 Chloride 106 mmol/L (98-107) 05/18/17 04:18 Carbon Dioxide 23.5 mmol/L (21-32) 05/18/17 04:18 BUN 39 mg/dL (7-18) H 05/18/17 04:18 Creatinine 1.39 mg/dL (0.70-1.30) H 05/18/17 04:18 Est GFR (MDRD) Af Amer > 60 (>60) 05/18/17 04:18 Est GFR (MDRD) Non-Af 54 (>60) L 05/18/17 04:18 Glucose 119 mg/dL (65-99) H 05/18/17 04:18 POC Glucose (mg/dL) 120 mg/dL (65-99) H 05/17/17 09:53 Calcium 9.1 mg/dL (8.5-10.1) 05/18/17 04:18 Corrected Calcium TNP 05/18/17 04:18 Magnesium 1.8 mg/dL (1.7-2.9) 05/11/17 04:50 Total Bilirubin 0.90 mg/dL (0.2-1.0) 05/18/17 04:18 AST 409 Units/L (15-37) H 05/18/17 04:18 ALT 168 Units/L (12-78) H 05/18/17 04:18 Alkaline Phosphatase 76 Units/L (46-116) 05/18/17 04:18 Ammonia 16 umol/L (11-32) 05/17/17 10:45 Creatine Kinase 74 Units/L (39-308) 05/10/17 08:14 CK-MB (CK-2) 1.1 ng/mL (0-4.0) 05/10/17 08:14 CK/CKMB % Calc 1.5 % (<4) 05/10/17 08:14 Troponin I 0.18 ng/mL (0-1.5) 05/10/17 08:14 B-Natriuretic Peptide 1090 pg/mL (0-79) H* 05/11/17 04:50 Total Protein 6.5 g/dL (6.4-8.2) 05/18/17 04:18 Albumin 3.9 g/dL (3.4-5.0) 05/18/17 04:18 Globulin 2.6 g/dL (2.5-4.5) 05/18/17 04:18 Albumin/Globulin Ratio 1.5 Ratio (1.1-2.1) 05/18/17 04:18 Triglycerides 33 mg/dL (0-150) 05/10/17 05:20 Cholesterol 76 mg/dL (0-200) 05/10/17 05:20 LDL Cholesterol, Calc 38 mg/dL (0-100) 05/10/17 05:20 HDL Cholesterol 31 mg/dL (40-60) L 05/10/17 05:20 Cholesterol/HDL Ratio 2.5 (0.0-5.0) 05/10/17 05:20 Specimen Type Random urine 05/09/17 13:45 Urine Color Yellow (YELLOW) 05/09/17 13:45 Urine Appearance Clear (CLEAR) 05/09/17 13:45 Urine pH 5.0 (5.0 - 8.0) 05/09/17 13:45 Ur Specific [place] 1.015 (1.000-1.030) 05/09/17 13:45 Urine Protein 2+ (NEGATIVE) 05/09/17 13:45 Urine Glucose (UA) Negative (NEGATIVE) 05/09/17 13:45 Urine Ketones Negative (NEGATIVE) 05/09/17 13:45 Urine Occult Blood 1+ (NEGATIVE) 05/09/17 13:45 Urine Nitrite Negative (NEGATIVE) 05/09/17 13:45 Urine Bilirubin Negative (NEGATIVE) 05/09/17 13:45 Urine Urobilinogen Normal (NORMAL) 05/09/17 13:45 Ur Leukocyte Esterase Negative (NEGATIVE) 05/09/17 13:45 Urine RBC Rare /HPF (NEGATIVE) 05/09/17 13:45 Urine WBC Rare /HPF (NEGATIVE) 05/09/17 13:45 Ur Squamous Epith Cells Rare /HPF (NEGATIVE) 05/09/17 13:45 Urine Bacteria Negative /HPF (NEGATIVE) 05/09/17 13:45 Ur Culture Indicated? No/not indicated 05/09/17 13:45 Digoxin 0.81 ng/mL (0.9-2) L 05/16/17 04:34 H. pylori IgG Antibody Negative (NEGATIVE) 05/09/17 10:36 - Plan (1) Palliative care status Status: Acute Plan: DURAGESIC 100MCG PATCH, VERSED 5MG/HR, CONTINUE TO MONITOR (2) CHF exacerbation Status: Acute Qualifiers: Congestive heart failure type: unspecified congestive heart failure type Qualified Code(s): I50.9 - Heart failure, unspecified Plan: INITIATE PALLIATIVE CARE, CONTINUE TO MONITOR (3) Chest pain, rule out acute myocardial infarction Status: Resolved Plan: INITIATE PALLIATIVE CARE MEASURES, CONTINUE TO MONITOR (4) Abdominal pain Status: Acute Qualifiers: Abdominal location: generalized Qualified Code(s): R10.84 - Generalized abdominal pain Plan: INITIATE PALLIATIVE CARE MEASURES, CONTINUE TO MONITOR (5) Hypertension Status: Suspected Qualifiers: Hypertension type: essential hypertension Qualified Code(s): I10 - Essential (primary) hypertension Plan: INITIATE PALLIATIVE CARE MEASURES, CONTINUE TO MONITOR (6) COPD (chronic obstructive pulmonary disease) Status: Chronic Qualifiers: COPD type: chronic bronchitis Chronic bronchitis type: unspecified Qualified Code(s): J42 - Unspecified chronic bronchitis Plan: INITIATE PALLIATIVE CARE MEASURES, CONTINUE TO MONITOR
[2017-05-18] MEDS ORDERED: NS 25 ML IV 25 ML IV ONE (16:27)
[2017-05-19] MEDS: D5 LR 1000 ML 1,000 ML IV SCH (00:42)
[2017-05-19 04:22] VITALS: BP 73/44
== END 2017-05-19 05:30 | disposition expired | DRG 291 ==
LOC: ER 10:07 → MED/SURG 16:47 → OBSVTOIN 05-10 10:00
PROVIDERS: ADMIT Internal Medicine; ATTEND Internal Medicine
PROC: 02HV33Z Insertion of Infusion Device into Superior Vena Cava, Percutaneous Approach (ICD-10-PCS; principal; 2017-05-09)
PROC: B548ZZA Ultrasonography of Superior Vena Cava, Guidance (ICD-10-PCS; 2017-05-09)
DX: I50.9 Heart failure, unspecified (principal); B20 Human immunodeficiency virus [HIV] disease; I46.9 Cardiac arrest, cause unspecified; E87.2 Acidosis; R07.89 Other chest pain; I25.10 Atherosclerotic heart disease of native coronary artery without angina pectoris; E78.2 Mixed hyperlipidemia; K21.9 Gastro-esophageal reflux disease without esophagitis; I10 Essential (primary) hypertension; R06.09 Other forms of dyspnea; R94.31 Abnormal electrocardiogram [ECG] [EKG]; R06.02 Shortness of breath; Z95.0 Presence of cardiac pacemaker; R60.0 Localized edema; R10.84 Generalized abdominal pain; J42 Unspecified chronic bronchitis; E77.8 Other disorders of glycoprotein metabolism; Z51.5 Encounter for palliative care; Z66 Do not resuscitate; R79.1 Abnormal coagulation profile; R26.89 Other abnormalities of gait and mobility
CPT/HCPCS: 36415; 36556; 70450; 71010; 74000; 74176; 80053; 80061; 80162; 81001; 82140; 82550; 82553; 82947; 83735; 83880; 84132; 84484; 85025; 85378; 85610; 85730; 86677; 87070; 87205; 93005; 94640; 94760; 96365; 96374; 99284; A4216; A4222; B5200; C9113; P9047; S0030; S0179; S0181; G0378; J0744; J1650; J1940; J2060; J2270; J7120